=== PATIENT | female | born 1985 | race Caucasian/White ===

== ENCOUNTER → 2018-03-12 | Outpatient (REF) | payer OTHER, MEDICAID ==
[2018-03-12 18:59] LABS: BASO % 0.3 % (0.0-1.0); EOS % 0.5 % (0.0-3.0); IMMATURE GRANULOCYTE % 0.3 % (0-3.0); LYMPH # 1.4 10^3/uL (1.5-4.5); LYMPH % 35.8 % (24.0-44.0); MEAN CORPUSCULAR HEMOGLOBIN 31.6 pg (27.0-33.0); MEAN CORPUSCULAR HGB CONC 34.1 g/dl (32.0-36.5); MEAN CORPUSCULAR VOLUME 92.6 fl (80.0-96.0); MONO # 0.4 10^3/uL (0.0-0.8); MONO % 9.4 % (0.0-5.0); NEUTROPHILS # 2.1 10^3/uL (1.8-7.7); NEUTROPHILS % 53.7 % (36.0-66.0); PLATELET COUNT, AUTOMATED 245 10^3/uL (150-450); RED BLOOD COUNT 4.75 10^6/uL (4.00-5.40); WHITE BLOOD COUNT 3.8 10^3/uL (4.0-10.0)
[2018-03-12 19:21] LABS: ALBUMIN 3.8 GM/DL (3.2-5.2); ALBUMIN/GLOBULIN RATIO 1.09 (1.00-1.93); ALKALINE PHOSPHATASE 54 U/L (45-117); ALT/SGPT 25 U/L (12-78); ANION GAP 5 MEQ/L (8-16); AST/SGOT 14 U/L (7-37); BILIRUBIN,TOTAL 0.5 MG/DL (0.2-1.0); BLOOD UREA NITROGEN 11 MG/DL (7-18); CALCIUM LEVEL 8.1 MG/DL (8.5-10.1); CARBON DIOXIDE LEVEL 29 MEQ/L (21-32); CHLORIDE LEVEL 108 MEQ/L (98-107); CHOLESTEROL LEVEL 138 MG/DL (<200); CHOLESTEROL RISK RATIO 4.058 (<5); CREATININE FOR GFR 0.72 MG/DL (0.55-1.30); GLOMERULAR FILTRATION RATE > 60.0 (>60); GLUCOSE, FASTING 69 MG/DL (70-100); HDL CHOLESTEROL 34 MG/DL (>40); LDL CHOLESTEROL 83 MG/DL (<100); NON-HDL-C 104 MG/DL; POTASSIUM SERUM 3.7 MEQ/L (3.5-5.1); SODIUM LEVEL 142 MEQ/L (136-145); THYROID STIMULATING HORMONE 0.729 uIU/ML (0.358-3.740); TOTAL PROTEIN 7.3 GM/DL (6.4-8.2); TRIGLYCERIDES LEVEL 103 MG/DL (<150)
[2018-03-12 19:25] LABS: ESTIMATED AVERAGE GLUCOSE 91 MG/DL (60-110); HEMOGLOBIN A1c 4.8 %
[2018-03-12 19:32] LABS: TOTAL 25(OH) VITAMIN D 15.5 NG/ML (30.0-100.0)
== END ==
LOC: M LAB REF 17:50
DX: Z00.00 Encounter for general adult medical examination without abnormal findings (principal)

== ENCOUNTER → 2018-03-12 | Outpatient (REF) | payer OTHER, MEDICAID ==
[2018-03-14 15:28] LABS: HPV HYBRID CAPTURE II Negative (Negative)
== END ==
LOC: M LAB REF 13:12
DX: Z12.4 Encounter for screening for malignant neoplasm of cervix (principal)

== ENCOUNTER → 2019-06-11 | Outpatient (REF) | payer BC ==
[~2019-06-11] MED LIST: CEFD300CAP PO; ESCI10TA2; LEXA1TAB2
[2019-06-11 13:11] LABS: APPEARANCE, URINE CLOUDY (CLEAR); BACTERIA, URINE AUTO 3+ (NEGATIVE); BILIRUBIN, URINE AUTO NEGATIVE (NEGATIVE); BLOOD, URINE BLOOD 1+ (NEGATIVE); COLOR, URINE YELLOW (YELLOW); GLUCOSE, URINE (UA) AUTO NEGATIVE (NEGATIVE); KETONE, URINE AUTO NEGATIVE (NEGATIVE); LEUKOCYTE ESTERASE, URINE AUTO NEGATIVE (NEGATIVE); MUCUS, URINE SMALL (NEGATIVE); NITRITE, URINE AUTO POSITIVE (NEGATIVE); PROTEIN, URINE AUTO NEGATIVE (NEGATIVE); RBC, URINE AUTO 1 /HPF (0-3); SPECIFIC GRAVITY URINE AUTO 1.015 (1.002-1.035); SQUAMOUS EPITHELIAL CELL UR AU 1 /HPF (0-6); UROBILINOGEN, URINE AUTO 0.2 mg/dL (0.0-2.0); WBC, URINE AUTO 3 /HPF (0-3)
[2019-06-11 13:36] LABS: BASO % 0.1 % (0.0-1.0); EOS % 0.6 % (0.0-3.0); HEMATOCRIT 43.5 % (36.0-47.0); HEMOGLOBIN 14.5 g/dl (12.0-15.5); LYMPH # 2.2 10^3/uL (1.5-5.0); LYMPH % 31.3 % (24.0-44.0); MEAN CORPUSCULAR HEMOGLOBIN 30.9 pg (27.0-33.0); MEAN CORPUSCULAR HGB CONC 33.3 g/dl (32.0-36.5); MEAN CORPUSCULAR VOLUME 92.6 fl (80.0-96.0); MONO # 0.4 10^3/uL (0.0-0.8); MONO % 5.9 % (0.0-5.0); NEUTROPHILS # 4.3 10^3/uL (1.5-8.5); NEUTROPHILS % 61.4 % (36.0-66.0); PLATELET COUNT, AUTOMATED 241 10^3/uL (150-450); WHITE BLOOD COUNT 6.9 10^3/uL (4.0-10.0)
[2019-06-11 13:51] LABS: HEMOGLOBIN A1c 4.5 %
[2019-06-11 13:55] LABS: ALT/SGPT 21 U/L (12-78); BILIRUBIN,TOTAL 0.8 MG/DL (0.2-1.0); BLOOD UREA NITROGEN 10 MG/DL (7-18); CALCIUM LEVEL 9.4 MG/DL (8.5-10.1); CARBON DIOXIDE LEVEL 28 MEQ/L (21-32); CHLORIDE LEVEL 109 MEQ/L (98-107); CHOLESTEROL LEVEL 174 MG/DL (<200); CREATININE FOR GFR 0.76 MG/DL (0.55-1.30); GLOMERULAR FILTRATION RATE > 60.0 (>60); GLUCOSE, FASTING 81 MG/DL (70-100); HDL CHOLESTEROL 40 MG/DL (>40); LDL CHOLESTEROL 98 MG/DL (<100); NON-HDL-C 134 MG/DL; SODIUM LEVEL 142 MEQ/L (136-145); TOTAL 25(OH) VITAMIN D 14.9 NG/ML (30.0-100.0); TOTAL PROTEIN 7.3 GM/DL (6.4-8.2); TRIGLYCERIDES LEVEL 182 MG/DL (<150)
== END ==
LOC: M LAB REF 12:37
PROVIDERS: ATTEND Nurse Practitioner Adult Health
DX: Z13.9 Encounter for screening, unspecified (principal)

== ENCOUNTER 2019-06-15 07:07 | Emergency (ER) | payer BC ==
[~2019-06-15] VITALS: Ht 162.6 cm; Wt 78.9 kg
[~2019-06-15 07:07] MED LIST changes: -CEFD300CAP PO; -ESCI10TA2
[2019-06-15] MEDS ORDERED: ESCI10TA2 (07:15)
[2019-06-15] MEDS ORDERED: NS 1,000 ML IV ONE (07:45)
[2019-06-15] MEDS ORDERED: MORPHINE 4 MG/ML 1ML VIAL/SYRINGE (J2270) IV ONE (07:45)
[2019-06-15] MEDS ORDERED: ONDANSETRON 4MG/2ML VIAL (J2405) IV ONE (08:00)
[2019-06-15 08:04] LABS: BASO % 0.5 % (0.0-1.0); EOS % 0.5 % (0.0-3.0); HEMATOCRIT 42.4 % (36.0-47.0); HEMOGLOBIN 14.1 g/dl (12.0-15.5); LYMPH # 1.5 10^3/uL (1.5-5.0); LYMPH % 24.8 % (24.0-44.0); MEAN CORPUSCULAR HEMOGLOBIN 30.8 pg (27.0-33.0); MEAN CORPUSCULAR HGB CONC 33.3 g/dl (32.0-36.5); MEAN CORPUSCULAR VOLUME 92.6 fl (80.0-96.0); MONO # 0.4 10^3/uL (0.0-0.8); MONO % 6.9 % (0.0-5.0); NEUTROPHILS # 4.2 10^3/uL (1.5-8.5); NEUTROPHILS % 66.8 % (36.0-66.0); PLATELET COUNT, AUTOMATED 198 10^3/uL (150-450); RED BLOOD COUNT 4.58 10^6/uL (4.00-5.40); WHITE BLOOD COUNT 6.2 10^3/uL (4.0-10.0)
[2019-06-15 08:28] LABS: BLOOD UREA NITROGEN 13 MG/DL (7-18); CALCIUM LEVEL 8.9 MG/DL (8.5-10.1); CARBON DIOXIDE LEVEL 26 MEQ/L (21-32); CHLORIDE LEVEL 107 MEQ/L (98-107); GLOMERULAR FILTRATION RATE > 60.0 (>60); GLUCOSE, FASTING 97 MG/DL (70-100); POTASSIUM SERUM 3.8 MEQ/L (3.5-5.1); SODIUM LEVEL 140 MEQ/L (136-145)
--- NOTE | 2019-06-15 08:36 | REP ---
CT abdomen and pelvis without IV or oral contrast: History: Left flank pain. Comparison study: December 30, 2011. Findings: Preliminary digital director cost radiograph shows tubal ligation clamps, both of which are in the left mid abdomen. Bowel gas pattern is normal. Lung bases are clear on axial CT images. There is evidence of mild diffuse fatty infiltration of the liver. The liver size is borderline with midclavicular span of 17.7 cm. The spleen is also at the upper limit of normal measuring 13.0 cm in greatest dimension. No focal hepatic or splenic lesion is seen. Normal adrenal glands are seen bilaterally. No abnormality is noted in the gallbladder or pancreas. No retroperitoneal mass or adenopathy is seen. Normal appendix is seen. There is a 3.5 cm cystic area in the right ovary consistent with ovarian follicle. There is intrarenal nephrolithiasis in the right kidney with multiple small calcific opacities measuring up to 3 mm. No hydronephrosis is seen on either side. There are tiny intrarenal calculi on the left as well. No ureteral stone is seen. There are phleboliths in the pelvis bilaterally. No bladder calculus is seen. The urinary bladder is largely empty at the time of scanning. No uterine or left ovarian abnormality. Impression: There is a 3.5 cm cystic area in the right ovary. There is some fatty infiltration of the liver. Borderline liver spleen size. Bilateral intrarenal nephrolithiasis with multiple small calculi. No hydronephrosis or ureteral stone. Normal appendix. Electronically Signed by Albino Salguero MD 06/15/2019 10:35 A
[2019-06-15] MEDS ORDERED: cefTRIAXone SOD 1 GM in D5W MINI-BAG PLUS 50 ML IV ONE (08:45)
[2019-06-15 09:37] VITALS: BP 123/75
[2019-06-15] MEDS ORDERED: CEFD300CAP PO (09:42)
== END 2019-06-15 09:53 | disposition home or self-care (01) ==
LOC: M ED 07:07
DX: N10 Acute pyelonephritis (principal); N20.0 Calculus of kidney; N83.201 Unspecified ovarian cyst, right side; Z88.7 Allergy status to serum and vaccine; Z88.8 Allergy status to other drugs, medicaments and biological substances
CPT/HCPCS: 74176; 80048; 81001; 85025; 87088; 87186; 96361; 96365; 96375; 99284; J0696; J2270; J2405

== ENCOUNTER 2019-06-21 07:06 | Emergency (ER) | payer BC ==
[~2019-06-21] VITALS: Ht 162.6 cm; Wt 78.0 kg
[~2019-06-21 07:06] MED LIST changes: +CEFD300CAP PO; +ESCI10TA2
[2019-06-21] MEDS ORDERED: IBUP80TA (07:12)
[2019-06-21] MEDS ORDERED: TRAM50TA2 (07:12)
[2019-06-21] MEDS ORDERED: NITR100C2 (07:12)
[2019-06-21] MEDS ORDERED: CEFD1CAP8 (07:12)
[2019-06-21] MEDS ORDERED: MORPHINE 2 MG/ML 1ML VIAL (J2270) IV ONE (07:45)
[2019-06-21 07:58] LABS: BASO % 0.4 % (0.0-1.0); EOS # 0.1 10^3/uL (0.0-0.5); EOS % 0.6 % (0.0-3.0); HEMATOCRIT 45.2 % (36.0-47.0); HEMOGLOBIN 15.5 g/dl (12.0-15.5); LYMPH # 2.3 10^3/uL (1.5-5.0); LYMPH % 29.5 % (24.0-44.0); MEAN CORPUSCULAR HEMOGLOBIN 31.4 pg (27.0-33.0); MEAN CORPUSCULAR HGB CONC 34.3 g/dl (32.0-36.5); MEAN CORPUSCULAR VOLUME 91.5 fl (80.0-96.0); MONO # 0.6 10^3/uL (0.0-0.8); NEUTROPHILS # 4.9 10^3/uL (1.5-8.5); NEUTROPHILS % 62.1 % (36.0-66.0); PLATELET COUNT, AUTOMATED 237 10^3/uL (150-450); RED BLOOD COUNT 4.94 10^6/uL (4.00-5.40); WHITE BLOOD COUNT 7.8 10^3/uL (4.0-10.0)
[2019-06-21 08:00] LABS: APPEARANCE, URINE HAZY (CLEAR); BACTERIA, URINE AUTO NEGATIVE (NEGATIVE); BILIRUBIN, URINE AUTO NEGATIVE (NEGATIVE); BLOOD, URINE BLOOD 1+ (NEGATIVE); COLOR, URINE YELLOW (YELLOW); GLUCOSE, URINE (UA) AUTO NEGATIVE (NEGATIVE); KETONE, URINE AUTO NEGATIVE (NEGATIVE); LEUKOCYTE ESTERASE, URINE AUTO NEGATIVE (NEGATIVE); MUCUS, URINE SMALL (NEGATIVE); NITRITE, URINE AUTO NEGATIVE (NEGATIVE); PROTEIN, URINE AUTO NEGATIVE (NEGATIVE); RBC, URINE AUTO 2 /HPF (0-3); SPECIFIC GRAVITY URINE AUTO 1.016 (1.002-1.035); SQUAMOUS EPITHELIAL CELL UR AU 4 /HPF (0-6); UROBILINOGEN, URINE AUTO 0.2 mg/dL (0.0-2.0); WBC, URINE AUTO 0 /HPF (0-3)
[2019-06-21 08:18] LABS: ALBUMIN 4.3 GM/DL (3.2-5.2); BILIRUBIN,DIRECT 0.2 MG/DL (0.0-0.2); BILIRUBIN,TOTAL 0.9 MG/DL (0.2-1.0); TOTAL PROTEIN 7.6 GM/DL (6.4-8.2)
[2019-06-21] MEDS ORDERED: ONDANSETRON 4MG/2ML VIAL (J2405) IV ONE (09:00)
[2019-06-21 10:31] VITALS: BP 107/61
--- NOTE | 2019-06-21 13:26 | REP ---
CT ABDOMEN AND PELVIS WITHOUT CONTRAST: HISTORY: Flank pain. Nephrolithiasis. Comparison CT study, June 15, 2019. CT FINDINGS: Digital preliminary brick kiln burner radiograph demonstrates a normal bowel gas pattern. Tubal ligation clamps are visible in the left mid abdomen as on the earlier brick kiln burner view. The lung bases are clear. The liver and the spleen remain normal in size, homogeneous in texture. Normal adrenal glands. The gallbladder and pancreas remain unremarkable. There is no evidence of hydronephrosis. There are tiny calcific densities in the left kidney, and there are several slightly larger calcifications in the right kidney consistent with bilateral intrarenal nephrolithiasis. The largest right renal calculus is in the lower pole collecting system 3 mm in diameter. These are unchanged from the comparison CT study of June 15, 2019. No ureteral stone is seen on either side. No bladder calculus is observed. There is a stable small cyst in the right ovary, 3.5 cm in greatest diameter. This is unchanged. No uterine or left adnexal abnormality is seen. Urinary bladder is unremarkable. Normal appendix is visible as before. No abdominal wall defect is seen. IMPRESSION: Stable 3.5 cm cyst, right ovary. Normal appendix. Bilateral intrarenal calcifications consistent with nephrolithiasis. Unchanged from the recent prior study. No hydronephrosis or ureteral stones seen. No acute abnormality. Electronically Signed by Albino Salguero MD 06/21/2019 02:49 P
== END 2019-06-21 11:23 | disposition home or self-care (01) ==
LOC: M ED 07:06
DX: R10.9 Unspecified abdominal pain (principal); N20.0 Calculus of kidney; Z88.7 Allergy status to serum and vaccine; Z88.6 Allergy status to analgesic agent; Z79.891 Long term (current) use of opiate analgesic; Z79.899 Other long term (current) drug therapy
CPT/HCPCS: 74176; 80047; 80076; 81001; 82150; 83690; 84702; 85025; 96374; 96375; 99284; J2270; J2405

== ENCOUNTER 2019-06-30 10:08 | Emergency (ER) | payer BC ==
[~2019-06-30] VITALS: Ht 162.6 cm; Wt 79.0 kg
[~2019-06-30 10:08] MED LIST changes: -ONDA4TAB6 PO
[2019-06-30] MEDS ORDERED: NS 1,000 ML IV ONE (10:45)
[2019-06-30] MEDS ORDERED: KETOROLAC 30 MG/ML VIAL (J1885) IV ONE (10:45)
[2019-06-30] MEDS ORDERED: ONDANSETRON 4MG/2ML VIAL (J2405) IV ONE (10:45)
[2019-06-30 10:52] LABS: BASO % 0.3 % (0.0-1.0); EOS % 0.5 % (0.0-3.0); HEMATOCRIT 47.1 % (36.0-47.0); HEMOGLOBIN 15.6 g/dl (12.0-15.5); LYMPH # 2.1 10^3/uL (1.5-5.0); LYMPH % 33.7 % (24.0-44.0); MEAN CORPUSCULAR HEMOGLOBIN 31.1 pg (27.0-33.0); MEAN CORPUSCULAR HGB CONC 33.1 g/dl (32.0-36.5); MONO # 0.4 10^3/uL (0.0-0.8); NEUTROPHILS # 3.7 10^3/uL (1.5-8.5); PLATELET COUNT, AUTOMATED 259 10^3/uL (150-450); RED BLOOD COUNT 5.01 10^6/uL (4.00-5.40); WHITE BLOOD COUNT 6.3 10^3/uL (4.0-10.0)
[2019-06-30 11:23] LABS: BLOOD UREA NITROGEN 11 MG/DL (7-18); CALCIUM LEVEL 9.1 MG/DL (8.5-10.1); CARBON DIOXIDE LEVEL 29 MEQ/L (21-32); CHLORIDE LEVEL 107 MEQ/L (98-107); CREATININE FOR GFR 0.83 MG/DL (0.55-1.30); GLOMERULAR FILTRATION RATE > 60.0 (>60); GLUCOSE, FASTING 84 MG/DL (70-100); POTASSIUM SERUM 3.7 MEQ/L (3.5-5.1); SODIUM LEVEL 140 MEQ/L (136-145)
--- NOTE | 2019-06-30 11:28 | REP ---
Supine abdomen two views: Comparison is the abdomen/pelvis CT dated 06/21/2019. The bilateral renal calculi identified on the recent CT are not visible on plain films. There are faintly visible pelvic calcifications bilaterally. On the comparison CT these are likely phleboliths. The bowel gas pattern is normal. The skeletal structures are unremarkable. Impression: The patient's known renal calculi are not visible on plain films. There are pelvic calcifications, likely phleboliths. Electronically Signed by Ryan Bain MD 06/30/2019 11:20 A
--- NOTE | 2019-06-30 11:42 | REP ---
Renal ultrasound for left flank pain and renal colic: Comparison is the abdomen/pelvis CT dated 06/21/2019. On the comparison CT, small bilateral renal calculi were identified. On the ultrasound study today the right kidney measures 11.3 x 5.7 x 4.0 cm. The left kidney measures 11.3 x 6.2 x 5.2 cm. The kidneys are normal size. Renal cortical echogenicity is normal bilaterally. There is no hydronephrosis on the right or the left. In the right kidney an 8 mm mid pole echogenic focus is identified, compatible with a non obstructive renal calculus. The left kidney. A 7 mm upper pole echogenic focus is identified, compatible with a nonobstructive calculus. No solid or cystic renal masses are identified on the right or the left. Bladder: The bladder is almost completely empty and cannot be further evaluated. Impression: There is no hydronephrosis on the right on the left. By ultrasound, a single nonobstructive calculus is identified in each kidney. There are no solid or cystic renal masses. Electronically Signed by Ryan Bain MD 06/30/2019 11:34 A
[2019-06-30] MEDS ORDERED: cefTRIAXone SOD 1 GM in D5W MINI-BAG PLUS 50 ML IV ONE (12:15)
[2019-06-30 13:30] VITALS: BP 115/76
[2019-06-30] MEDS ORDERED: ONDA4TAB6 PO (13:51)
== END 2019-06-30 13:30 | disposition home or self-care (01) ==
LOC: M ED 10:08
DX: R10.9 Unspecified abdominal pain (principal); R11.2 Nausea with vomiting, unspecified; N20.0 Calculus of kidney; Z88.6 Allergy status to analgesic agent; Z88.7 Allergy status to serum and vaccine; Z79.899 Other long term (current) drug therapy
CPT/HCPCS: 74018; 76775; 80048; 81001; 85025; 87086; 96361; 96365; 96375; 99284; J0696; J1885; J2405

== ENCOUNTER → 2019-06-30 | Outpatient (REF) | payer BC ==
[~2019-06-30] MED LIST changes: +CEFD1CAP8; +IBUP80TA; +NITR100C2; +ONDA4TAB6 PO; +TRAM50TA2
[2019-06-30 13:32] LABS: APPEARANCE, URINE CLOUDY (CLEAR); BACTERIA, URINE AUTO NEGATIVE (NEGATIVE); BILIRUBIN, URINE AUTO NEGATIVE (NEGATIVE); BLOOD, URINE BLOOD 1+ (NEGATIVE); CALCIUM OXALATE CRYSTALS MODERATE; COLOR, URINE YELLOW (YELLOW); GLUCOSE, URINE (UA) AUTO NEGATIVE (NEGATIVE); KETONE, URINE AUTO NEGATIVE (NEGATIVE); LEUKOCYTE ESTERASE, URINE AUTO NEGATIVE (NEGATIVE); MUCUS, URINE SMALL (NEGATIVE); NITRITE, URINE AUTO NEGATIVE (NEGATIVE); PROTEIN, URINE AUTO NEGATIVE (NEGATIVE); RBC, URINE AUTO 2 /HPF (0-3); SPECIFIC GRAVITY URINE AUTO 1.023 (1.002-1.035); SQUAMOUS EPITHELIAL CELL UR AU 12 /HPF (0-6); UROBILINOGEN, URINE AUTO 0.2 mg/dL (0.0-2.0); WBC, URINE AUTO 2 /HPF (0-3)
== END ==
LOC: M SMT 12:58
PROVIDERS: ATTEND Nurse Practitioner Family
DX: N39.0 Urinary tract infection, site not specified (principal)

== ENCOUNTER → 2019-07-20 | Outpatient (REF) | payer BC ==
[~2019-07-20] MED LIST changes: +ONDA4TAB6 PO
[2019-07-20 13:47] LABS: APPEARANCE, URINE HAZY (CLEAR); BACTERIA, URINE AUTO 2+ (NEGATIVE); BILIRUBIN, URINE AUTO NEGATIVE (NEGATIVE); BLOOD, URINE BLOOD 1+ (NEGATIVE); COLOR, URINE YELLOW (YELLOW); GLUCOSE, URINE (UA) AUTO NEGATIVE (NEGATIVE); KETONE, URINE AUTO NEGATIVE (NEGATIVE); LEUKOCYTE ESTERASE, URINE AUTO TRACE (NEGATIVE); MUCUS, URINE SMALL (NEGATIVE); NITRITE, URINE AUTO NEGATIVE (NEGATIVE); PROTEIN, URINE AUTO NEGATIVE (NEGATIVE); RBC, URINE AUTO 2 /HPF (0-3); SPECIFIC GRAVITY URINE AUTO 1.019 (1.002-1.035); SQUAMOUS EPITHELIAL CELL UR AU 2 /HPF (0-6); UROBILINOGEN, URINE AUTO 0.2 mg/dL (0.0-2.0); WBC, URINE AUTO 16 /HPF (0-3)
== END ==
LOC: M SMT 13:08
PROVIDERS: ATTEND Nurse Practitioner Family
DX: R31.0 Gross hematuria (principal)

== ENCOUNTER → 2019-07-30 | Outpatient (REF) | payer BC ==
[2019-07-30 19:35] LABS: BASO % 0.1 % (0.0-1.0); EOS # 0.1 10^3/uL (0.0-0.5); EOS % 0.9 % (0.0-3.0); HEMOGLOBIN 14.6 g/dl (12.0-15.5); LYMPH # 2.3 10^3/uL (1.5-5.0); MEAN CORPUSCULAR HEMOGLOBIN 31.6 pg (27.0-33.0); MEAN CORPUSCULAR HGB CONC 34.8 g/dl (32.0-36.5); MEAN CORPUSCULAR VOLUME 90.9 fl (80.0-96.0); MONO # 0.4 10^3/uL (0.0-0.8); MONO % 6.4 % (0.0-5.0); NEUTROPHILS # 3.9 10^3/uL (1.5-8.5); NEUTROPHILS % 58.3 % (36.0-66.0); PLATELET COUNT, AUTOMATED 258 10^3/uL (150-450); RED BLOOD COUNT 4.62 10^6/uL (4.00-5.40); WHITE BLOOD COUNT 6.7 10^3/uL (4.0-10.0)
[2019-07-30 20:05] LABS: ALBUMIN 4.4 GM/DL (3.2-5.2); ALT/SGPT 25 U/L (12-78); AMYLASE 58 U/L (25-115); BILIRUBIN,TOTAL 0.5 MG/DL (0.2-1.0); BLOOD UREA NITROGEN 14 MG/DL (7-18); CALCIUM LEVEL 9.3 MG/DL (8.5-10.1); CARBON DIOXIDE LEVEL 29 MEQ/L (21-32); CHLORIDE LEVEL 103 MEQ/L (98-107); CREATININE FOR GFR 0.87 MG/DL (0.55-1.30); GLOMERULAR FILTRATION RATE > 60.0 (>60); GLUCOSE, FASTING 87 MG/DL (70-100); LIPASE 126 U/L (73-393); POTASSIUM SERUM 4.2 MEQ/L (3.5-5.1); SODIUM LEVEL 136 MEQ/L (136-145); TOTAL PROTEIN 7.3 GM/DL (6.4-8.2)
== END ==
LOC: M LAB REF 19:01
PROVIDERS: ATTEND Nurse Practitioner Family
DX: Z13.9 Encounter for screening, unspecified (principal); R10.12 Left upper quadrant pain

== ENCOUNTER → 2019-08-10 | Outpatient (CLI) | payer BC ==
--- NOTE | 2019-08-10 10:09 | REP ---
ABDOMINAL ULTRASOUND: Real-time sonographic evaluation of the abdomen performed. The gallbladder demonstrates no evidence of intraluminal sludge or calculi, wall thickening or pericholecystic fluid. There is no intrahepatic or extrahepatic biliary dilatation, common bile duct measuring 2 mm. There is increased echotexture of the liver diffusely suggesting diffuse fibrofatty infiltration. No gross liver or pancreatic mass is seen. Spleen is upper limits of normal in size to slightly enlarged. It measures 12.9 x 11.7 x 4.6 cm. Splenic index is 694, normal splenic index is 480. Kidneys are normal in size and echotexture, right kidney measuring 11.1 x 5.3 x 4.1 cm and left kidney 11.2 x 5.0 x 5.0 cm. There is no mass or hydronephrosis. The abdominal aorta is normal in caliber with no aneurysm, maximum AP diameter proximally 2.1 cm and distally 1.4 cm. No ascites is seen. IMPRESSION: Diffuse fibrofatty infiltrate of the liver. Mild splenomegaly. Electronically Signed by Ryan Bernstein MD 08/10/2019 07:50 P
== END ==
LOC: M RAD 08:25
PROVIDERS: ATTEND Nurse Practitioner Adult Health
DX: K76.0 Fatty (change of) liver, not elsewhere classified (principal); R16.1 Splenomegaly, not elsewhere classified

== ENCOUNTER → 2019-08-18 | Outpatient (REF) | payer BC ==
[2019-08-18 19:36] LABS: BASO % 0.3 % (0.0-1.0); EOS # 0.1 10^3/uL (0.0-0.5); EOS % 0.8 % (0.0-3.0); HEMATOCRIT 44.3 % (36.0-47.0); HEMOGLOBIN 15.2 g/dl (12.0-15.5); LYMPH # 2.4 10^3/uL (1.5-5.0); LYMPH % 33.2 % (24.0-44.0); MEAN CORPUSCULAR HEMOGLOBIN 31.8 pg (27.0-33.0); MEAN CORPUSCULAR HGB CONC 34.3 g/dl (32.0-36.5); MEAN CORPUSCULAR VOLUME 92.7 fl (80.0-96.0); MONO # 0.5 10^3/uL (0.0-0.8); MONO % 6.5 % (0.0-5.0); NEUTROPHILS # 4.2 10^3/uL (1.5-8.5); NEUTROPHILS % 58.9 % (36.0-66.0); PLATELET COUNT, AUTOMATED 230 10^3/uL (150-450); RED BLOOD COUNT 4.78 10^6/uL (4.00-5.40); WHITE BLOOD COUNT 7.1 10^3/uL (4.0-10.0)
[2019-08-18 19:36] LABS: APPEARANCE, URINE CLEAR (CLEAR); BACTERIA, URINE AUTO NEGATIVE (NEGATIVE); BILIRUBIN, URINE AUTO NEGATIVE (NEGATIVE); BLOOD, URINE BLOOD NEGATIVE (NEGATIVE); COLOR, URINE YELLOW (YELLOW); GLUCOSE, URINE (UA) AUTO NEGATIVE (NEGATIVE); KETONE, URINE AUTO NEGATIVE (NEGATIVE); LEUKOCYTE ESTERASE, URINE AUTO NEGATIVE (NEGATIVE); MUCUS, URINE SMALL (NEGATIVE); NITRITE, URINE AUTO NEGATIVE (NEGATIVE); PROTEIN, URINE AUTO NEGATIVE (NEGATIVE); RBC, URINE AUTO 1 /HPF (0-3); SPECIFIC GRAVITY URINE AUTO 1.015 (1.002-1.035); SQUAMOUS EPITHELIAL CELL UR AU 2 /HPF (0-6); UROBILINOGEN, URINE AUTO 0.2 mg/dL (0.0-2.0); WBC, URINE AUTO 1 /HPF (0-3)
[2019-08-18 19:50] LABS: ALT/SGPT 40 U/L (12-78); BILIRUBIN,TOTAL 0.8 MG/DL (0.2-1.0); BLOOD UREA NITROGEN 8 MG/DL (7-18); CALCIUM LEVEL 9.1 MG/DL (8.5-10.1); CARBON DIOXIDE LEVEL 30 MEQ/L (21-32); CHLORIDE LEVEL 106 MEQ/L (98-107); CREATININE FOR GFR 0.72 MG/DL (0.55-1.30); GLOMERULAR FILTRATION RATE > 60.0 (>60); GLUCOSE, FASTING 93 MG/DL (70-100); POTASSIUM SERUM 4.4 MEQ/L (3.5-5.1); SODIUM LEVEL 139 MEQ/L (136-145); TOTAL PROTEIN 7.3 GM/DL (6.4-8.2)
== END ==
LOC: M LAB REF 19:07
PROVIDERS: ATTEND Nurse Practitioner Family
DX: R10.12 Left upper quadrant pain (principal); R10.32 Left lower quadrant pain; R30.0 Dysuria

== ENCOUNTER → 2019-08-25 | Outpatient (CLI) | payer BC ==
--- NOTE | 2019-08-25 18:28 | REP ---
Clinical: Left lower quadrant pain with history of endometrial ablation. Technique: Transabdominal pelvic ultrasound followed by transvaginal examination for better evaluation of the endometrium and adnexa with color Doppler evaluation of the ovaries. Comparison: 01/19/2013. Findings: Bladder is normal and measures 8.1 x 7.7 x 7.6 cm. Anteverted uterus measures 10.6 x 3.6 x 4.3 cm and includes 11 mm hypoechoic complex right posterior submucosal lesion which may represent small myometrial cyst or fibroid. Endometrial complex measures 5.9 mm thickness. Subcentimeter Nabothian cyst noted. Bilateral ovaries are normal in vascularity without torsion. Left ovary measures 3.0 x 2.3 x 2.9 cm (RI 0.67). Right ovary measures 4.5 x 3.8 x 4.8 cm (RI 0.59) and includes 4.0 x 3.8 x 3.9 cm simple cyst. No pelvic fluid or adnexal mass lesion. Impression: 1. 11 mm hypoechoic lesion in the uterus as described above may represent submucosal fibroid or myometrial cyst. 2. 4.0 cm simple right ovarian cyst. Consider follow-up examination in 4-6 weeks to reevaluate the right ovary and uterine lesion. Electronically Signed by Sarthak Li MD 08/25/2019 06:20 P
== END ==
LOC: M RAD 12:45
PROVIDERS: ATTEND Nurse Practitioner Adult Health
DX: R10.32 Left lower quadrant pain (principal)

== ENCOUNTER → 2019-11-12 | Outpatient (CLI) | payer BC ==
[~2019-11-12] MED LIST changes: +CLAR10CA3 PO; -ESCI10TA2; +ESCI10TA2 PO; +IBUP-1022 PO; +OXYC1TAB23 PO; +TYLETAB14 PO
== END ==
LOC: M LABSMTC 09:43
PROVIDERS: ATTEND Anesthesiology
DX: Z01.818 Encounter for other preprocedural examination (principal); Z11.59 Encounter for screening for other viral diseases
CPT/HCPCS: C9803; U0003

== ENCOUNTER 2019-11-15 13:11 | Day surgery (SDC) | payer BC ==
[~2019-11-15] VITALS: Ht 162.6 cm; Wt 83.0 kg
[~2019-11-15 13:11] MED LIST changes: -IBUP-1022 PO; +LR 1,000 ML IV ONE; -OXYC1TAB23 PO
[2019-11-15 13:51] LABS: HEMATOCRIT 42.7 % (36.0-47.0); HEMOGLOBIN 14.6 g/dl (12.0-15.5); MEAN CORPUSCULAR HEMOGLOBIN 31.7 pg (27.0-33.0); MEAN CORPUSCULAR HGB CONC 34.2 g/dl (32.0-36.5); MEAN CORPUSCULAR VOLUME 92.8 fl (80.0-96.0); PLATELET COUNT, AUTOMATED 215 10^3/uL (150-450); WHITE BLOOD COUNT 7.7 10^3/uL (4.0-10.0)
[2019-11-15] MEDS ORDERED: ONDANSETRON 4MG/2ML VIAL As Ordered ONE ×2 (14:18→16:47)
[2019-11-15] MEDS ORDERED: ONDANSETRON 4MG/2ML VIAL IV ONE (14:30)
[2019-11-15] MEDS ORDERED: OXYC1TAB23 PO (15:15)
[2019-11-15] MEDS ORDERED: IBUP-1022 PO (15:17)
[2019-11-15] MEDS ORDERED: propofoL 200 MG/20 ML VIAL As Ordered ONE (16:47)
[2019-11-15] MEDS ORDERED: LIDOCAINE 2% 100MG/5ML SDV (FOR ANES.) As Ordered ONE (16:47)
[2019-11-15] MEDS ORDERED: MIDAZOLAM INJ 2MG/2ML VIAL (J2250 PER 1MG) As Ordered ONE (16:47)
[2019-11-15] MEDS ORDERED: ROCURONIUM BROMIDE 50 MG/5 ML VIAL As Ordered ONE (16:47)
[2019-11-15] MEDS ORDERED: SUGAMMADEX SODIUM 500 MG/5 ML VIAL (BRIDION) As Ordered ONE (16:47)
[2019-11-15] MEDS ORDERED: fentaNYL 100 MCG/2 ML INJECTION (J3010) As Ordered ONE (16:47)
[2019-11-15] MEDS ORDERED: HYDROmorphone HCL 2 MG/ML 1ML VIAL (J1170) As Ordered ONE (16:47)
[2019-11-15] MEDS ORDERED: dexameTHASONE 4 MG/ML 1ML VIAL (J1100 PER 1MG) As Ordered ONE (16:47)
[2019-11-15] MEDS ORDERED: BUPIVACAINE HCL 0.25% 30ML VIAL As Ordered ONE (18:18)
[2019-11-15] MEDS ORDERED: KETOROLAC 60 MG/2 ML VIAL As Ordered ONE (19:49)
[2019-11-15] MEDS ORDERED: ACETAMINOPHEN 1000MG 100ML IV BTL (OFIRMEV) (J0131 PER 10MG) As Ordered ONE (19:52)
[2019-11-15] MEDS ORDERED: ePHEDrine SULFATE 25 MG/5 ML(5MG/ML) SYRINGE As Ordered ONE (19:56)
[2019-11-15] MEDS ORDERED: LR 1,000 ML IV SCH ×2 (20:30)
[2019-11-15] MEDS ORDERED: HYDROMORPHONE HCL 0.5 MG/ 0.5 ML SYRINGE (J1170 PER 1) IV PRN (20:30)
[2019-11-15] MEDS ORDERED: ONDANSETRON 4MG/2ML VIAL IV PRN (20:30)
[2019-11-15] MEDS: fentaNYL 100 MCG/2 ML INJECTION (J3010) IV PRN ×4 (20:31→20:59)
[2019-11-15] MEDS: oxyCODONE 5MG TAB PO PRN ×2 (21:00→21:32)
[2019-11-15] MEDS ORDERED: oxyCODONE 5MG TAB As Ordered ONE (21:32)
[2019-11-15 22:05] VITALS: BP 116/67
--- NOTE | 2019-11-19 06:36 | RO ---
DATE OF PROCEDURE: 11/15/2019 PREPROCEDURE DIAGNOSIS: Right ovarian cyst adenoma. POSTPROCEDURE DIAGNOSIS: Left ovarian cyst adenoma. PROCEDURE: Laparoscopic left salpingo-oophorectomy. SURGEON: Dr. Fran Briceno POWER WASHER: ANESTHESIA: General endotracheal. ESTIMATED BLOOD LOSS: 10 mL. URINE OUTPUT: 200 mL. FINDINGS: 8 cm cyst adenoma involving the left ovary. Normal fallopian tubes. Normal right ovary. Normal uterus. Normal upper abdomen. DESCRIPTION OF PROCEDURE: The patient was taken to the operating room where general endotracheal anesthesia was induced. She was prepped and draped in sterile fashion in the dorsal lithotomy position. A Hadley catheter was placed. A sponge stick was placed in the vagina and used as a manipulator. A periumbilical incision made with a scalpel. A Veress needle was placed through this incision while tenting up on the skin of the abdomen. Intra-abdominal location of the Veress needle was assessed using a saline filled syringe. A pneumoperitoneum was created. The Veress needle was removed. A 10 mm trocar using Proximexort was inserted through this incision. Using a 5 mm scope, two 5 mm suprapubic ports were placed under direct visualization. The anatomy was surveyed. The ovarian mass was noted to be on the left ovary instead of the right ovary as expected. The IP ligament was grasped with the LigaSure, coagulated and incised. The broad ligament attachments to the ovary were coagulated and incised in a similar fashion. The fallopian tube was transected near its origin. The utero-ovarian ligament was then transected using the LigaSure. The specimen was freed. The specimen was elevated with the grasping instrument and placed in an Endo Catch bag. This was withdrawn through the umbilicus. The umbilical incision was slightly extended as was the fascia. The specimen was drained externally. None of the fluid drained into the abdomen. The specimen was then removed through the umbilical incision. The fascia was grasped and closed with two interrupted sutures of #0 Vicryl. The skin was closed with #4-0 Monocryl subcuticular sutures. Sponge, instrument and needle counts were correct. All instruments were removed.
== END 2019-11-15 22:28 | disposition home or self-care (01) ==
LOC: M SDC 13:11
PROVIDERS: ATTEND Specialist
DX: N83.02 Follicular cyst of left ovary (principal); Z92.84 Personal history of unintended awareness under general anesthesia; K76.0 Fatty (change of) liver, not elsewhere classified; F41.9 Anxiety disorder, unspecified; F32.9 Major depressive disorder, single episode, unspecified; N20.0 Calculus of kidney; Z87.891 Personal history of nicotine dependence; Z88.6 Allergy status to analgesic agent; Z88.7 Allergy status to serum and vaccine; Z79.899 Other long term (current) drug therapy; Z79.891 Long term (current) use of opiate analgesic
CPT/HCPCS: 36415; 58661; 85027; 88305; J0131; J1100; J1170; J1885; J2250; J2405; J3010

== ENCOUNTER → 2020-05-16 | Outpatient (CLI) | payer BC ==
[~2020-05-16] MED LIST changes: +IBUP-1022 PO; -LR 1,000 ML IV ONE; +OXYC1TAB23 PO
--- NOTE | 2020-05-16 10:38 | REP ---
INDICATION: N83.201 RIGHT OVARIAN CYST. COMPARISON: Pelvic ultrasound dated 08/25/2019.. TECHNIQUE: Transabdominal and endovaginal ultrasound assessment and Doppler ultrasound assessment. FINDINGS: On the comparison study there was a right ovarian simple cyst measuring up to 4.0 cm in diameter. On the comparison study and there was a right ovarian simple cyst that measured up to 4.0 cm. On the study today the uterus is anteverted and normal size measuring 9.2 x 3.3 x 4.2 cm. The endometrium is not thickened for patient age measuring 9 mm. On the comparison study there was a submucosal fibroid versus cyst. This is not identified on the study today. The patient reportedly had a left oophorectomy in November 2019. On the study today there is a right ovarian cystic complex measuring 3.6 x 2.2 x 2.4 cm. There is a thickened septation within this cystic complex versus a 2 cysts adjacent to 1 another There is vascular flow in the right ovary. The Doppler resistive index in the intraparenchymal arteries measures 0.55. A nabothian cyst is incidentally identified in the cervix. There is no free fluid in the pelvis.. IMPRESSION: Right ovarian cyst within thick septation versus 2 adjacent cysts as described. Left oophorectomy. No free fluid in the pelvis. In the submucosal fibroid/cyst identified on the previous study is not identified today. <Electronically signed by Ryan Bain > 05/16/20 1039
== END ==
LOC: M WHC 08:09
PROVIDERS: ATTEND Specialist
DX: N83.201 Unspecified ovarian cyst, right side (principal); Z90.79 Acquired absence of other genital organ(s)

== ENCOUNTER → 2020-06-16 | Outpatient (CLI) | payer BC ==
[~2020-06-16] MED LIST changes: +HYOS125TA; +OMEP-221
== END ==
LOC: M LABSMTC 11:39
PROVIDERS: ATTEND Anesthesiology
DX: Z01.812 Encounter for preprocedural laboratory examination (principal); Z20.822 Contact with and (suspected) exposure to COVID-19

== ENCOUNTER 2020-06-21 11:05 | Day surgery (SDC) | payer OTHER ==
[~2020-06-21] VITALS: Ht 162.6 cm; Wt 84.4 kg
[~2020-06-21 11:05] MED LIST changes: +ESCI10TA16 PO; -ESCI10TA2 PO; +LIDOCAINE 2% 100MG/5ML SDV (FOR ANES.) As Ordered ONE; +NS 1,000 ML IV ONE; +propofoL 200 MG/20 ML VIAL As Ordered ONE
--- OUTSIDE RECORDS SUMMARY | 2020-06-21 11:09 | CCD | Continuity of Care Document ---
Author Author Francesca GIBBS M.D Organization Unknown Address [address] [place] [address] Phone [phone] Care Team Providers Care Hose Sprayer Name Role Phone Judi Flores PA-C [facility] [phone] Problems Active Problems Provider Date Abdominal pain Rajat Gibbs M.D. Onset: 06/13/19 21 Social History Type Date Description Comments Sex Unknown ETOH Use Rarely consumes alcohol Tobacco Use Start: Unknown End: Unknown Patient is a former smoker QUIT 06/2012 Allergies, Adverse Reactions, Alerts Active Allergies Reaction Severity Comments Date Pertussis Vaccine 06/13/2020 Medications Active Medications SIG Qnty Indications Ordering Provide r Date Hyoscyamine Sulfate 0.125mg Tablets Dispers 1 tab by mouth three times a day before meals as needed 90tabs Rajat Gibbs M.D. 06/13/[address] 1 cap by mouth every morning 30caps Rajat Gibbs M.D. 021 Suprep Bowel Prep Kit 17.5-3.13-1.6GM/177ML Solution use as directed 354ml Rajat Gibbs M.D. 06/13/2020 Escitalopram Oxalate 10mg Tablets Take 1 & 1 2 (One & One Half) Tablets By Mouth Once Daily Unknown Immunizations Description No Information Available Vital Signs Date Vital Result Comment 06/13/2020 9:33am Height 64 inches 5'4" Weight 193.00 lb BP Systolic 125 mmHg BP Diastolic 72 mmHg Heart Rate 69 /min BMI (Body Mass Index) 33.1 kg/m2 Weight 87.545 kg Body Temperature 97.7 F Results Description No Information Available Procedures Description No Information Available Medical Devices Description No Information Available Encounters Type Date Location Provider Dx Diagnosis Office Visit 06/13/2020 9:15a Main Office Rajat Gibbs M.D. R 10.12 Left upper quadrant pain Assessments Date Code Description Provider 06/13/2020 R10.12 Left upper quadrant pain Rajat Gibbs M.D. Plan of Treatment Future Appointment(s):* 06/21/2020 1:15 pm - Rajat Gibbs M.D. at Main Office 06/13/2020 - Rajat Gibbs M.D.* R10.12 Left upper quadrant pain* Comments:* 35 yo wf who presents for a h/o luq abdominal pain. Pain is ongoing since 06/28. No weight loss. No c/o nausea/vomiting. Pt has daily bouts of pain. Pt has irregular bowel habits. No rectal bleeding. Abdominal ct scan was negative for any major issues.Plan:1. Egd + colonoscopy.2. Antispasmotics + heating pad.3. Avoid greasy foods. Functional Status Description No Information Available Mental Status Description No Information Available Referrals Description No Information Available
--- OUTSIDE RECORDS SUMMARY | 2020-06-21 11:09 | CCD | Continuity of Care Document ---
Author Author Francesca ROBERTO Organization Unknown Address [address] [place] [address] [place] [address] Phone [phone] Care Team Providers Care Emergency Nurse Name Role Phone [facility] Adult Primary Care [facility] [phone] [facility] [phone] Problems Description No Information Available Social History Type Date Description Comments Sex Unknown ETOH Use Denies alcohol use Tobacco Use Start: Unknown The patient has never vaped Tobacco Use Start: Unknown Patient has never smoked Smoking Status Reviewed: 04/07/20 Patient has never smoked Allergies, Adverse Reactions, Alerts Description No Information Available Medications Active Medications SIG Qnty Indications Ordering Provide r Date Amoxicillin/Clavulanate Potassium 875-125mg Tablets take one tablet by mouth twice a day x 10 days 20tabs J 06.18 Rubio Blakely JR., M.D. 04/07/2020 Immunizations Description No Information Available Vital Signs Date Vital Result Comment 04/07/2020 8:58am BP Systolic 117 mmHg BP Diastolic 78 mmHg Heart Rate 95 /min Respiratory Rate 16 /min O2 % BldC Oximetry 98 % Body Temperature 98.4 F Weight 190.00 lb Height 64 inches 5'4" BMI (Body Mass Index) 32.6 kg/m2 Pain Level 8 Results Description No Information Available Procedures Description No Information Available Medical Devices Description No Information Available Encounters Type Date Location Provider Dx Diagnosis Office Visit 04/07/2020 8:25a Main Office KENYA Bowman J01 .10 Acute frontal sinusitis, unspecified Z20.828 Contact w and exposure to ot h viral communicable diseases Assessments Date Code Description Provider 04/07/2020 J01.10 Acute frontal sinusitis, unspeci fied KENYA Bowman 04/07/2020 Z20.828 Contact with and (thorpe spected) exposure to other viral communicable diseases KENYA Bowman Plan of Treatment No Information Available Functional Status Description No Information Available Mental Status Description No Information Available Referrals Description No Information Available
--- OUTSIDE RECORDS SUMMARY | 2020-06-21 11:09 | CCD | Continuity of Care Document ---
Author Author Francesca CLARK M.D. Organization Unknown Address [address] [place] [address] Phone [phone] Care Team Providers Care Car Packer Name Role Phone Judi Flores PA-C [facility] [phone] [facility] Gastroenterology [facility] [phone] Problems Active Problems Provider Date Anxiety state Judi Flores PA-C Onset: 05/09/2020 Recurrent major depressive episodes Judi Flores PA-C Onse t: 05/09/2020 Social History Type Date Description Comments Sex Unknown ETOH Use Rarely consumes alcohol Tobacco Use Start: Unknown End: Unknown Patient is a former smoker quit 2012 Recreational Drug Use Denies Drug Use Allergies, Adverse Reactions, Alerts Active Allergies Reaction Severity Comments Date Pertussis Vaccines swelling 0 Medications Active Medications SIG Qnty Indications Ordering Provide r Date Lexapro 10mg Tablets 1 and a 1/2 tab by mouth every day Unknown Immunizations CPT Code Status Date Vaccine Lot # [id number] Given 05/09/2020 Influenza (>= 6 Months) P.F. Vaccine [id number] Vital Signs Date Vital Result Comment 05/16/2020 3:58pm BP Systolic 122 mmHg BP Diastolic 82 mmHg Heart Rate 82 /min Body Temperature 96.9 F Weight 190.88 lb Weight 86.581 kg Height 64 inches 5'4" BMI (Body Mass Index) 32.8 kg/m2 BSA (Body Surface Area) 1.92 m2 05/09/2020 3:20pm BP Systolic 112 mmHg BP Diastolic 80 mmHg Heart Rate 82 /min Body Temperature 97.9 F Respiratory Rate 16 /min O2 % BldC Oximetry 97 % Weight 188.38 lb Weight 85.447 kg Height 64 inches 5'4" BMI (Body Mass Index) 32.3 kg/m2 BSA (Body Surface Area) 1.91 m2 Results Description No Information Available Procedures Date Code Description Status 05/09/2020 65839 Admin Patient Focused Health Ris k Assessment Instrument Completed 05/09/2020 18697 Brief Emotional/Beha v Assessment W/ Scoring Doc Per Standard Inst Completed Medical Devices Description No Information Available Encounters Description No Information Available Assessments Date Code Description Provider 05/09/2020 Z00.01 Encounter for genera l adult medical examination with abnormal findings Judi Flores PA-C 05/09/2020 R10.9 Unspecified abdominal pain Judi Flores PA-C 05/09/2020 F41.9 Anxiety disorder, unspecified El twila Flores PA-C 05/09/2020 F33.9 Major depressive disorder, recur rent, unspecified Judi Flores PA-C 05/09/2020 N83.201 Unspecified ovarian cyst, right side Judi Flores PA-C 05/09/2020 Z23 Encounter for immunization Judi Flores PA-C Plan of Treatment Future Appointment(s):* 05/24/2020 2:15 pm - Roselia David NP at [facility] * 07/10/2020 3:20 pm - Judi Flores PA-C at [facility] Functional Status Description No Information Available Mental Status Description No Information Available Referrals Refer to Reason for Referral Status Appt Date [facility] Gastroenterology 35 year old female with nunu re left upper quadrant pain. This pain is debilitating for the patient. At the worst, pain is more than 10/10. She has gone to the ER for this. Patient is new to our clinic and we are obtaining prior records. Patient reports CT in the past showed mild splenomegaly and no other abnormalities. Please evaluate and treat. Thank you. [address] [place] [address] [phone]
--- OUTSIDE RECORDS SUMMARY | 2020-06-21 11:09 | CCD | Continuity of Care Document ---
Author Author Francesca [employer] Organization Unknown Address [address] [place] [address] Phone [phone] Care Team Providers Care Rehabilitation Therapy Aide Name Role Phone Judi Flores PA-C AUTM [phone] Rajat Gibbs MD AUTM Problems Active Problems Provider Date Anxiety state [...] Severity Comments Date Pertussis Vaccines swelling 0 NKFA 06/12/2020 [employer] 06/12/2020 Medications Active Medications SIG Qnty Indications Ordering Provide r Date Vitamin D3 Ultra Potency 1.25mg (91855 Ut) Tablets 1 tab by mouth every week 12tabs Elkin Weston MD 05/25/2020 Lexapro 10mg Tablets 1 and a 1/2 tab by mouth every day Unknown Immunizations CPT Code Status Date Vaccine Lot # [id number] Given 05/09/2020 Influenza (>= 6 Months) P.F. Vaccine [id number] Vital Signs Date Vital Result Comment 06/12/2020 9:21am BP Systolic 108 mmHg BP Diastolic 80 mmHg Heart Rate 80 /min Body Temperature 96.9 F Weight 193.00 lb Weight 87.545 kg Height 64 inches 5'4" BMI (Body Mass Index) 33.1 kg/m2 BSA (Body Surface Area) 1.93 m2 05/16/2020 3:58pm BP Systolic 122 mmHg BP Diastolic 82 mmHg Heart Rate 82 /min Body Temperature 96.9 F Weight 190.88 lb Weight 86.581 kg Height 64 inches 5'4" BMI (Body Mass Index) 32.8 kg/m2 BSA (Body Surface Area) 1.92 m2 Results Test Acquired Date Facility Test Result H/L Range Note Laboratory test finding 06/12/2020 [facility] <pending> CBC W/Automated Diff 05/23/2020 [facility] CBC W/Automated Diff (SEE NOTE) 1, 2 WBC 7.4 10^3/uL 4.2 - 11.0 RBC 4.75 10^6/uL 4.20 - 5.40 Hemoglobin 15.0 g/dL 12.0 - 16.0 Hematocrit 43.7 % 37.0 - 47.0 MCV 92.0 fL 81.0 - 101 MCH 31.6 pg 27.0 - 34.0 MCHC 34.3 g/dL 31.0 - 36.0 RDW 12.9 % 11.5 - 14.5 Platelets 235 10^3/uL 150 - 450 MPV 9.6 fL 7.4 - 10.4 Neut 60.9 % 37.0 - 80.0 Lymph 29.5 % 25.0 - 40.0 Tyler 7.3 % 3.0 - 8.0 Eos 1.2 % 0.0 - 7.0 Baso 0.3 % 0.0 - 2.5 %Ig 0.8 % High 0.0 - 0.0 %NRBC 0.0 % 0.0 - 0.0 #Neut 4.52 10^3/uL 2.00 - 6.90 #Lymph 2.19 10^3/uL 0.60 - 3.40 #Tyler 0.54 10^3/uL 0.00 - 0.90 #Eos 0.09 10^3/uL 0.00 - 0.70 #Baso 0.02 10^3/uL 0.00 - 0.20 #Ig 0.06 10^3/uL 0.00 - 0.10 #NRBC 0.00 10^3/uL 0.00 - 0.00 Manual Diff NOT INDICATED RBC Morph NOT INDICATED Comprehensive Metabolic Panel 05/23/2020 [facility] Comprehensive Metabo (SEE NOTE) 3 Sodium 140 mEq/L 134 - 153 Potassium 4.5 mEq/L 3.6 - 5.0 Chloride 102 mEq/L 98 - 107 Co2 29 mEq/L 22 - 30 Glucose 98 mg/dL 65 - 110 BUN 12 mg/dL 7 - 21 Creatinine 0.7 mg/dL 0.7 - 1.5 BUN/Creat 17 8 - 27 Total Protein 7.5 g/dL 6.3 - 8.2 Albumin 4.9 g/dL 3.9 - 5.0 Globulin 2.6 GM/DL 2.4 - 3.2 A/G Ratio 1.9 0.8 - 2.0 Calcium 9.6 mg/dL 8.4 - 10.2 Total Bili <0.7 mg/dL 0.2 - 1.3 Alkaline Phos 52 U/L 38 - 126 Sgot/Ast 20 U/L 5 - 40 SGPT/Alt 30 U/L 7 - 56 Anion Gap 9.0 mmol/L 8.0 - 16.0 Age 35 yrs Non-Aa GFR >60 mL/min Afr Amer GFR >60 mL/min 4 Laboratory test finding 05/23/2020 [facility] Hgba1c 4.5 % 4.4 - 6.1 5 TSH Highly Sensitive 1.72 uIU/mL 0.47 - 5.01 Cve Panel 05/23/2020 [facility] Cve Panel (SEE NOTE) 6 Cholesterol 183 mg/dL 131 - 200 Triglycerides 163 mg/dL High 35 - 160 HDL 44 mg/dL 29 - 86 LDL 122 mg/dL 65 - 175 Risk Factor 4.2 3.2 - 4.4 LDL/HDL 2.77 1.47 - 3.22 7 Laboratory test finding 05/23/2020 [facility] Vitamin D (25-Hydroxy) 20 NG/ML 8 Laboratory test finding 05/23/2020 [facility] Lipase Serum 42 U/L 13 - 60 Amylase 72 U/L 30 - 110 Laboratory test finding 05/17/2020 [facility] Cancer Antigen 125 7.0 U/mL 0.0-38.1 9 1 Is patient fasting? N 2 COMPLETE BLOOD COUNT 3 COMPREHENSIVE METABOLIC PANE L 4 Male GFR Interprentation 20-49 yrs >60 mL/min Normal 50-59 yrs >56 mL/min Normal 60-69 yrs >49 mL/min Normal 70-79yrs >42 mL/min Normal 80 and above >35 mL/min Normal Female GFR Interpretation 20-39 yrs >60 mL/min Normal 40-49 yrs >58 mL/min Normal 50-59 yrs >51 mL/min Normal 60-69 yrs >45 mL/min Normal 70-79 yrs >39 mL/min Normal 80 and above >32 mL/min Normal 5 {A1] {HB] 6 LIPID PANEL 7 CVE RISK CHOL/HDL LDL/HDL MEN: 1/2 AVERAGE 3.43 1.00 AVERAGE 4.97 3.55 2X AVERAGE 9.55 6.25 3X AVERAGE 23.99 7.99 WOMEN: 1/2 AVERAGE 3.27 1.47 AVERAGE 4.44 3.22 2X AVERAGE 7.05 5.03 3X AVERAGE 11.04 6.14 8 VITAMIN-D(25HYDROXY) Deficiency: <=20 ng/ml Insufficiency: 21-29 ng/ml Preferred level: => 30 ng/ml 9 [facility] Electroche miluminescence Immunoassay (ECLIA) Values obtained with different assay methods or kits cannot be used interchangeably. Results cannot be interpreted as absolute evidence of the presence or absence of malignant disease. Procedures Date Code Description Status 05/09/2020 48272 Admin Patient Focused Health Ris k Assessment Instrument Completed 05/09/2020 11572 Brief Emotional/Beha v Assessment W/ Scoring Doc Per Standard Inst Completed Medical Devices Description No Information Available Encounters Description No Information Available Assessments Date Code Description Provider 05/23/2020 Z00.01 Encounter for genera l adult medical examination with abnormal findings Judi Flores PA-C 05/23/2020 R10.9 Unspecified abdominal pain Judi Flores PA-C 05/16/2020 Z71.9 Counseling, unspecified Sandersbertha Tran M.D. 05/09/2020 Z00.01 Encounter for genera l adult [...] Flores PA-C Plan of Treatment Future Appointment(s):* 07/13/2020 9:15 am - Roselia David NP at [facility] * 07/10/2020 3:20 pm - Judi Flores PA-C at [facility] Functional Status Description No Information Available Mental Status Description No Information Available Referrals Refer to Dr Reason for Referral Status Appt Date Rajat Gibbs MD 35 year old female with s evere left upper quadrant pain. This pain is debilitating for the patient. At the worst, pain is more than 10/10. She has gone to the ER for this. Patient is new to our clinic and we are obtaining prior records. Patient reports CT in the past showed mild splenomegaly and no other abnormalities. Please evaluate and treat. Thank you. Patient Notified 06/29/[address] [place] [address] [phone]
--- OUTSIDE RECORDS SUMMARY | 2020-06-21 11:09 | CCD ---
Author Organization Unknown Address [address] [place] [address] Phone [phone] Care Team Providers Care Industrial Gas Servicer Helper Name Role Phone Fredy Narvaez Monroe Unavailable Unavailable Allergies Notes: PERTUSSIS VACCINE Medications Name Status Start Date Stop Date acetaminophen 300 mg-codeine 30 mg tablet Completed 04/03/2020 amoxicillin 875 mg-potassium clavulanate 125 mg tablet Completed 04/03/2020 benzonatate 100 mg capsule Completed 04/03 cefdinir 300 mg capsule Completed 04/03/20 20 escitalopram 10 mg tablet Completed 2019 hydrocodone 5 mg-acetaminophen 325 mg tablet Completed 04/03/2020 ibuprofen 800 mg tablet Completed 04/03/20 20 Lexapro 5 mg tablet Take 3 tablets every day by oral route. Active Not available nitrofurantoin monohydrate/macrocrystals 100 mg capsule Complete d 04/03/2020 omeprazole 20 mg capsule,delayed release Completed 04/03/2020 ondansetron 4 mg disintegrating tablet Completed 04/03/2020 ondansetron HCl 4 mg tablet Completed 03/10 oxycodone-acetaminophen 5 mg-325 mg tablet Completed 04/03/2020 promethazine 25 mg tablet Completed 2019 sulfamethoxazole 800 mg-trimethoprim 160 mg tablet Completed 04/03/2020 tamsulosin 0.4 mg capsule Completed 2019 tramadol 50 mg tablet Completed 04/03/2020 Problems Name Status Onset Date Source Obesity Active 01/28/2018 History Body Mass Index 30+ - Obesity Active 01/28/2018 Hi story Mixed Anxiety and Depressive Disorder Active 01/28/2018 History Bilateral Hearing Loss Active 01/28/2018 History Chest Pain Active 03/12/2018 History Screening for Malignant Neoplasm of Cervix Unknown 03/[address] Concept Unknown 03/12/2018 History Renal Colic Active 06/11/2019 History Clinical Finding Unknown 06/11/2019 History Kidney Stone Active 07/15/2019 History Patient Asked to Attend Unknown 08/31/2019 History Procedures Notes: uterine ablation, tubal ligation 2005, left ovary/fallopian tube removal-11/15/19 Results Lab Results None recorded. Past Encounters 04/03/2020 Abdominal Pain; Cyst of Right Ovary; Acute Sinusitis Fredy Narvaez, RPA-C: [address] [facility], [facility] [address], [place] [address], Ph. Social History Tobacco Smoking Status Never Smoker Vaccine List None recorded. Plan of Care Reminders Provider Appointments None recorded. Lab None recorded. Referral None recorded. Procedures None recorded. Surgeries None recorded. Imaging None recorded. Vitals 04/03/2020 08:50AM ESTABLISHED [id number] Height Weight BMI Blood Pressure 64 in 191 lbs 6 oz 32.8 kg/m2 123/86 mm[Hg] 12/16/2019 Height Weight Blood Pressure 64 in 188 lbs 2.08 oz 123/85 mm[Hg] 09/14/2019 Height Weight Blood Pressure 64 in 178 lbs 8 oz 126/82 mm[Hg] 08/31/2019 Height Weight Blood Pressure 64 in 180 lbs 2.08 oz 119/81 mm[Hg] 08/18/2019 Height Weight Blood Pressure 64 in 170 lbs 6.08 oz 118/78 mm[Hg] 08/04/2019 Height Weight Blood Pressure 64 in 170 lbs 121/79 mm[Hg] 07/30/2019 Height Weight Blood Pressure 64 in 171 lbs 8 oz 114/78 mm[Hg] 07/21/2019 Height Weight Blood Pressure 64 in 170 lbs 130/84 mm[Hg] 07/15/2019 Height Weight Blood Pressure 64 in 169 lbs 6.08 oz 116/76 mm[Hg] 07/05/2019 Height Weight Blood Pressure 64 in 171 lbs 6.4 oz 119/79 mm[Hg] 06/23/2019 Height Weight Blood Pressure 64 in 172 lbs 126/82 mm[Hg] 06/11/2019 Height Weight Blood Pressure 64 in 176 lbs 119/83 mm[Hg]
--- OUTSIDE RECORDS SUMMARY | 2020-06-21 11:09 | CCD | Continuity of Care Document ---
Author Author Francesca KING PA-C Organization Unknown Address [address] [place] [address] Phone [phone] Care Team Providers Care Gum Scoring Machine Operator Name Role Phone Judi King PA-C AUTM [phone] Rajat Gibbs MD AUTM Problems Active Problems Provider Date Anxiety state Judi King PA-C Onset: 05/09/2020 Recurrent major depressive episodes Judi King PA-C Onse t: 05/09/2020 Social History Type [...] CPT Code Status Date Vaccine Lot # [id number] Given 05/09/2020 Influenza (>= 6 Months) P.F. [...] BSA (Body Surface Area) 1.91 m2 Results Test Acquired Date Facility Test Result H/L Range Note Laboratory test finding 05/23/2020 [facility] Hgba1c <pending> TSH Highly Sensitive <pending> Laboratory test finding 05/23/2020 [facility] Vitamin D (25-Hydroxy) <pending> Laboratory test finding 05/23/2020 [facility] l Lipase Serum <pending> Amylase <pending> Laboratory test finding 05/17/2020 [facility] l Cancer Antigen 125 7.0 U/mL 0.0-38.1 1 1 [facility] Electroche miluminescence Immunoassay (ECLIA) Values obtained with different assay methods or kits cannot be used interchangeably. Results cannot be interpreted as absolute evidence of the presence or absence of malignant disease. Procedures Date Code Description Status 05/09/2020 16832 Admin Patient Focused Health Ris k Assessment Instrument Completed 05/09/2020 11928 Brief Emotional/Beha v Assessment W/ Scoring Doc Per Standard Inst Completed Medical Devices Description No Information Available Encounters Type Date Location Provider Dx Diagnosis Office Visit 05/16/2020 3:30p [facility] Wm Guerra M.D. Z71.9 Counseling, unspecified Assessments Date Code Description Provider 05/23/2020 Z00.01 Encounter for general adult medi simon exam w abnormal findings Judi King PA-C 05/23/2020 R10.9 Unspecified abdominal pain Judi King PA-C 05/16/2020 Z71.9 Counseling, unspecified Wm Tran M.D. 05/09/2020 Z00.01 Encounter for genera l adult medical examination with abnormal findings Judi King PA-C 05/09/2020 R10.9 Unspecified abdominal pain Judi King PA-C 05/09/2020 F41.9 Anxiety disorder, unspecified El twila King PA-C 05/09/2020 F33.9 Major depressive disorder, recur rent, unspecified Judi King PA-C 05/09/2020 N83.201 Unspecified ovarian cyst, right side Judi King PA-C 05/09/2020 Z23 Encounter for immunization Judi King PA-C Plan of Treatment Future Appointment(s):* 05/24/2020 2:15 pm - Ros[facility] NP [facility] * 07/10/2020 3:20 pm - Judi King PA-C at [facility] 05/16/2020 - Wm Tran M.D.* Z71.9 Counseling, unspecified * All * Comments:* Given the patient's family history of breast cancer and uterine cancer, we will do genetic studies to rule out BRCA1 and BRCA2. We will repeat the ultrasound in a month. We will get CA125 to rule out possible ovarian cancer. * Follow up:* Follow up in a week to review lab results. Functional Status Description No Information Available Mental [...] and treat. Thank you. Patient Notified 06/29/[address] [place] [address] [phone]
--- OUTSIDE RECORDS SUMMARY | 2020-06-21 11:09 | CCD ---
Author Author [facility] Organization [facility] Address Unknown Phone Unavailable Care Team Providers Care Silver Service Waiter Name Role Phone Fran Briceno Unavailable PROBLEMS Type Condition ICD9-CM Code LWC89-SG Code Onset Dates Condition S tatus SNOMED Code Notes Problem Kidney stone N20.0 Active 59858723 Problem Gross hematuria R31.0 Active 051664216 Problem Kidney stone 592.0 Active 98185965 Problem Personal history of urinary calculi V13.01 Acti ve 788181020 ALLERGIES Allergen (clinical drug ingredient) Drug/Non Drug Allergy do cumented on EMR Reaction Allergy Type Onset Date Status artificial cinnamon Anaphylaxis Non Drug Allergy Active wasp severe swelling Non Drug Allergy Act davey aspirin Aspirin([facility] Code:[address]-68) prophylaxis Drug Allergy Active PERTUSSIS Unknown Non Drug Allergy Active ENCOUNTERS from 1983 to 2020-04-25 Encounter Location Date Provider Diagnosis [facility] [address] [place] [id number] Mar, Fran Briceno Right ovarian cyst N 83.201 IMMUNIZATIONS No Information SOCIAL HISTORY Sex Assigned At : Social History Observation Description Sex Assigned At Unknown Judaism: Question Answer Notes Judaism No confucianism beliefs that would impact health care. Alcohol Screening: Question Answer Notes Did you have a drink containing alcohol in the past year? No Points 0 Interpretation Negative REASON FOR REFERRAL No Information VITAL SIGNS Weight 191.4 lbs Mar, Weight-kg 86.82 kg Mar, Height 5'3" in Mar, BMI 33.9 kg/m2 Mar, Blood pressure systolic 110 mm Hg Mar, Blood pressure diastolic 72 mm Hg Mar, MEDICATIONS Medication SIG (Take, Route, Frequency, Duration) Notes Start Da te End Date Status Ibuprofen 800 MG 1 tablet with food or milk a s needed Orally Three times a day for 20 days October, Not-Taking Claritin 10 MG 1 tablet Orally Once a day Not-Taking Lexapro 10 MG 1 tablet Orally Once a day for 30 day(s) Active Tylenol with Codeine #3 300-30 MG 1 tablet as needed O rally every 8 hrs for 15 days October, Not-Taking PROCEDURES No Information RESULTS No Results REASON FOR VISIT HAVING ISSUE FROM HER SURGERY MEDICAL (GENERAL) HISTORY Type Description Date Medical History kidney stones Medical History ovarian cyst Medical History UTI Medical History depression Surgical History tubal ligation 2004 Surgical History removal of kidney stones 2008 Surgical History ABLATION 2012 Surgical History Left ovarian cystectomy, D&C 04/2013 Surgical History Termination of D&C Surgical History left tube and ovary removed 11/15/2019 Hospitalization History surgery related Hospitalization History Childbirth Goals Section No Information Health Concerns No Information MEDICAL EQUIPMENT No Information MENTAL STATUS No Information FUNCTIONAL STATUS No Information ASSESSMENTS Encounter Date Diagnosis Assessment Notes Treatment Notes Treatm ent Clinical Notes Mar, Right ovarian cyst (ICD-10 - N83.201) PLAN OF TREATMENT Treatment Notes Test Name Order Date PLZ PELVIC NON OB COMPLETE 2020-04-25 Insurance Providers Payer Name Payer Address Payer Phone Insured Name Patient Relati onship to Insured Coverage Start Date Coverage End Date [employer] PPO [id number] [address] GAV[place] LIU self
--- OUTSIDE RECORDS SUMMARY | 2020-06-21 11:09 | CCD | Continuity of Care Document ---
Author Author Francesca GIBBS M.D Organization Unknown Address [address] [place] [address] Phone [phone] Care Team Providers Care Irrigation Foreman Name Role Phone Judi Flores PA-C AUTM [phone] Problems Active Problems Provider Date Abdominal pain [...] Information Available Assessments Date Code Description Provider 06/13/2020 R10.12 Left upper quadrant pain Rajat Gibbs M.D. Plan of Treatment Future Appointment(s):* 06/15/2020 6:00 am - [place] at Main Office * 06/21/2020 1:15 pm - Rajat Gibbs M.D. [...]
--- OUTSIDE RECORDS SUMMARY | 2020-06-21 11:09 | CCD | Continuity of Care Document ---
Author Author Francesca KING PA-C Organization Unknown Address [address] [place] [address] Phone [phone] Care Team Providers Care Radio Technician Name Role Phone Judi King PA-C AUTM [phone] Rajat Gibbs MD AUTM Problems Active Problems [...] r Date Vitamin D3 Ultra Potency 1.25mg (68461 Ut) Tablets 1 tab by mouth every week 12tabs Elkin Weston MD 05/25/2020 Lexapro 10mg Tablets 1 and a 1/2 tab by mouth every day Unknown Immunizations CPT Code Status Date Vaccine Lot # [id number] Given 05/09/2020 Influenza (>= 6 Months) P.F. [...] Date Facility Test Result H/L Range Note CBC W/[facility] W/Automated Diff (SEE NOTE) 1, 2 [...] 80.0 Lymph 29.5 % 25.0 - 40.0 Rabun 7.3 % 3.0 - 8.0 Eos 1.2 % 0.0 - 7.0 Baso 0.3 % 0.0 - 2.5 %Ig 0.8 % High 0.0 - 0.0 %NRBC 0.0 % 0.0 - 0.0 #Neut 4.52 10^3/uL 2.00 - 6.90 #Lymph 2.19 10^3/uL 0.60 - 3.40 #Rabun 0.54 10^3/uL 0.00 - 0.90 #Eos 0.09 10^3/uL 0.00 - 0.70 #Baso 0.02 10^3/uL 0.00 - 0.20 #Ig 0.06 10^3/uL 0.00 - 0.10 #NRBC 0.00 10^3/uL 0.00 - 0.00 Manual Diff NOT INDICATED RBC Morph NOT INDICATED Comprehensive Metabolic Panel 05/23/2020 [facility]spital Comprehensive Metabo (SEE NOTE) 3 Sodium [...] >60 mL/min 4 Laboratory test finding 05/23/2020 [facility] Hgba1c 4.5 % 4.4 - 6.1 5 TSH Highly Sensitive 1.72 uIU/mL 0.47 - 5.01 Cve Panel 05/23/2020 [facility] Cve Panel (SEE NOTE) 6 Cholesterol 183 mg/dL 131 - 200 Triglycerides 163 mg/dL High 35 - 160 HDL 44 mg/dL 29 - 86 LDL 122 mg/dL 65 - 175 Risk Factor 4.2 3.2 - 4.4 LDL/HDL 2.77 1.47 - 3.22 7 Laboratory test finding 05/23/2020 [facility] Vitamin D (25-Hydroxy) 20 NG/ML 8 Laboratory test finding 05/23/2020 [facility] Lipase Serum 42 U/L 13 - 60 Amylase 72 U/L 30 - 110 Laboratory test finding 05/17/2020 [facility] Cancer Antigen 125 7.0 U/mL 0.0-38.1 9 [...] disease. Procedures Date Code Description Status 05/09/2020 99249 Admin Patient Focused Health Ris k Assessment Instrument Completed 05/09/2020 11046 Brief Emotional/Beha v Assessment W/ Scoring Doc Per Standard Inst Completed Medical Devices Description No Information Available Encounters Description No Information Available Assessments Date Code Description Provider 05/23/2020 Z00.01 Encounter for genera l adult medical examination with abnormal findings Judi King PA-C 05/23/2020 R10.9 Unspecified abdominal pain Judi King PA-C 05/16/2020 Z71.9 Counseling, unspecified [place] Jossy Tran M.D. 05/09/2020 Z00.01 Encounter for genera [...] King PA-C Plan of Treatment Future Appointment(s):* 06/12/2020 9:15 am - Ros[facility] * 07/10/2020 3:20 pm - Judi King PA-C at [facility] 05/16/2020 - Wm Tran M.D.* Z71.9 Counseling, [...] and treat. Thank you. Patient Notified 06/29/[address] [place] [address] [phone]
--- OUTSIDE RECORDS SUMMARY | 2020-06-21 11:09 | CCD | Continuity of Care Document ---
Author Author Francesca ROBERTO Organization Unknown Address [address] [place] [address] [place] [address] Phone [phone] Care Team Providers Care Home Care Attendant Name Role Phone [facility] Adult Primary Care AUTM [phone] [facility] AUTM [phone] Problems Description No Information Available Social History [...]
--- OUTSIDE RECORDS SUMMARY | 2020-06-21 11:10 | CCD ---
Author Author [facility] Organization [facility] Address Unknown Phone Unavailable Care Team Providers Care Pile Driver Engineer Name Role Phone Concepción Gibbs MD Unavailable Unavailable Concepción Gibbs MD Unavailable Unavailable Concepción Gibbs MD Unavailable Unavailable Concepción Gibbs MD Unavailable Unavailable Concepción Gibbs MD Unavailable Unavailable Concepción Gibbs MD Unavailable Unavailable Concepción Gibbs MD Unavailable Unavailable Concepción Gibbs MD Unavailable Unavailable Concepción Gibbs MD Unavailable Unavailable Concepción Gibbs MD Unavailable Unavailable Concepción Gibbs MD Unavailable Unavailable Concepción Gibbs MD Unavailable Unavailable Concepción Gibbs MD Unavailable Unavailable Concepción Gibbs MD Unavailable Unavailable Concepción Gibbs MD Unavailable Unavailable Concepción Gibbs MD Unavailable Unavailable Concepción Gibbs MD Unavailable Unavailable Concepción Gibbs MD Unavailable Unavailable Concepción Gibbs MD Unavailable Unavailable Sai, S Rajat MD Unavailable Unavailable Sai S Rajat MD Unavailable Unavailable Sai, S Rajat MD Unavailable Unavailable Sai, S Rajat MD Unavailable Unavailable Sai, S Rajat MD Unavailable Unavailable Sai, S Rajat MD Unavailable Unavailable Sai, S Rajat MD Unavailable Unavailable Sai, S Rajat MD Unavailable Unavailable Sai, S Rajat MD Unavailable Unavailable Sai, S Rajat MD Unavailable Unavailable Sai, S Rajat MD Unavailable Unavailable Sai, S Rajat MD Unavailable Unavailable Sai, S Rajat MD Unavailable Unavailable Sai, S Rajat MD Unavailable Unavailable Sai, S Rajat MD Unavailable Unavailable Sai, S Rajat MD Unavailable Unavailable Sai, S Rajat MD Unavailable Unavailable Sai, S Rajat MD Unavailable Unavailable Sia, S Rajat MD Unavailable Unavailable Sai, S Rajat MD Unavailable Unavailable Sai, S Rajat MD Unavailable Unavailable Sai, S Rajat MD Unavailable Unavailable Sai, S Rajat MD Unavailable Unavailable Sai, S Rajat MD Unavailable Unavailable Sai S Rajat HIGGINS Unavailable Unavailable Sai S Rajat HIGGINS Unavailable Unavailable Sai S Rajat HIGGINS Unavailable Unavailable Sai S Rajat HIGGINS Unavailable Unavailable BETINA CLOUD MD Unavailable Unavailable BETINA CLOUD MD Unavailable Unavailable BETINA CLOUD MD Unavailable Unavailable BETINA CLOUD MD Unavailable Unavailable BETINA CLOUD MD Unavailable Unavailable BETINA CLOUD MD Unavailable Unavailable BETINA CLOUD MD Unavailable Unavailable BETINA CLOUD MD Unavailable Unavailable BETINA CLOUD MD Unavailable Unavailable BETINA CLOUD MD Unavailable Unavailable BETINA CLOUD MD Unavailable Unavailable BETINA CLOUD MD Unavailable Unavailable [facility], KGATES Unavailable Unavailable LETTIERE, A NITHIN PA Unavailable Unavailable LETTIERE, A NITHIN PA Unavailable Unavailable LETTIERE, A NITHIN PA Unavailable Unavailable LETTIERE, A NITHIN PA Unavailable Unavailable LETTIERE, A NITHIN PA Unavailable Unavailable LETTIERE, A NITHIN PA Unavailable Unavailable LETTIERE, A NITHIN PA Unavailable Unavailable LETTIERE, A NITHIN PA Unavailable Unavailable LETTIERE, A NITHIN PA Unavailable Unavailable LETTIERE, A NITHIN PA Unavailable Unavailable LETTIERE, A NITHIN PA Unavailable Unavailable LETTIERE, A NITHIN PA Unavailable Unavailable LETTIERE, A NITHIN PA Unavailable Unavailable LETTIERE, A NITHIN PA Unavailable Unavailable LETTIERE, A NITHIN PA Unavailable Unavailable LETTIERE, A NITHIN PA Unavailable Unavailable LETTIERE, A NITHIN PA Unavailable Unavailable LETTIERE, A NITHIN PA Unavailable Unavailable LETTIERE, A NITHIN PA Unavailable Unavailable LETTIERE, A NITHIN PA Unavailable Unavailable LETTIERE, A NITHIN PA Unavailable Unavailable LETTIERE, A NITHIN PA Unavailable Unavailable LETTIERE, A NITHIN PA Unavailable Unavailable LETTIERE, A NITHIN PA Unavailable Unavailable LETTIERE, A NITHIN PA Unavailable Unavailable LETTIERE, A NITHIN PA Unavailable Unavailable LETTIERE, A NITHIN PA Unavailable Unavailable LETTIERE, A NITHIN PA Unavailable Unavailable LETTIERE, A NITHIN PA Unavailable Unavailable [place], DAVID RADHA RPA-C Unavailable Unavailable [place], DAVID RADHA RPA-C Unavailable Unavailable [place], DAVID RADHA RPA-C Unavailable Unavailable [place], DAVID RADHA RPA-C Unavailable Unavailable [place], DAVID RADHA RPA-C Unavailable Unavailable [place], DAVID RADHA RPA-C Unavailable Unavailable [place], DAVID RADHA RPA-C Unavailable Unavailable [place], DAVID RADHA RPA-C Unavailable Unavailable [place], DAVID RADHA RPA-C Unavailable Unavailable [place], DAVID RADHA RPA-C Unavailable Unavailable [place], DAVID RADHA RPA-C Unavailable Unavailable [place], DAVID RADHA RPA-C Unavailable Unavailable [place], DAVID RADHA RPA-C Unavailable Unavailable [place], DAVID RADHA RPA-C Unavailable Unavailable [place], DAVID RADHA RPA-C Unavailable Unavailable [place], DAVID RADHA RPA-C Unavailable Unavailable [place], DAVID RADHA RPA-C Unavailable Unavailable [place], DAVID RADHA RPA-C Unavailable Unavailable [place], DAVID RADHA RPA-C Unavailable Unavailable [place], DAVID RADHA RPA-C Unavailable Unavailable [place], DAVID RADHA RPA-C Unavailable Unavailable [place], DAVID RADHA RPA-C Unavailable Unavailable [place], DAVID RADHA RPA-C Unavailable Unavailable [place], DAVID RADHA RPA-C Unavailable Unavailable [place], DAVID RADHA RPA-C Unavailable Unavailable [place], DAVID RADHA RPA-C Unavailable Unavailable [place], DAVID RADHA RPA-C Unavailable Unavailable [place], DAVID RADHA RPA-C Unavailable Unavailable [place], DAVID RADHA RPA-C Unavailable Unavailable [place], DAVID RADHA RPA-C Unavailable Unavailable [place], DAVID RADHA RPA-C Unavailable Unavailable [place], DAVID RADHA RPA-C Unavailable Unavailable [place], DAVID RADHA RPA-C Unavailable Unavailable [place], DAVID RADHA RPA-C Unavailable Unavailable [place], DAVID RADHA RPA-C Unavailable Unavailable [place], DAVID RADHA RPA-C Unavailable Unavailable [place], DAVID RADHA RPA-C Unavailable Unavailable [place], DAVID RADHA RPA-C Unavailable Unavailable Jose E, A Mya WEBLOGIC ADMINISTRATOR Unavailable Unavailable Jose E, A Mya WEBLOGIC ADMINISTRATOR Unavailable Unavailable Jose E, A Mya WEBLOGIC ADMINISTRATOR Unavailable Unavailable Jose E, A Mya WEBLOGIC ADMINISTRATOR Unavailable Unavailable Jose E, A Mya WEBLOGIC ADMINISTRATOR Unavailable Unavailable Jose E, A Mya WEBLOGIC ADMINISTRATOR Unavailable Unavailable Jose E, A Mya WEBLOGIC ADMINISTRATOR Unavailable Unavailable Jose E, A Mya WEBLOGIC ADMINISTRATOR Unavailable Unavailable Jose E, A Mya WEBLOGIC ADMINISTRATOR Unavailable Unavailable Jose E, A Mya WEBLOGIC ADMINISTRATOR Unavailable Unavailable Jose E, A Mya WEBLOGIC ADMINISTRATOR Unavailable Unavailable Jose E, A Mya WEBLOGIC ADMINISTRATOR Unavailable Unavailable Jose E, A Mya WEBLOGIC ADMINISTRATOR Unavailable Unavailable Jose E, A Mya WEBLOGIC ADMINISTRATOR Unavailable Unavailable Jose E, A Mya WEBLOGIC ADMINISTRATOR Unavailable Unavailable Jose E, A Mya WEBLOGIC ADMINISTRATOR Unavailable Unavailable Jose E, A Mya WEBLOGIC ADMINISTRATOR Unavailable Unavailable Jose E, A Mya WEBLOGIC ADMINISTRATOR Unavailable Unavailable Jose E, A Mya WEBLOGIC ADMINISTRATOR Unavailable Unavailable Jose E, A Mya WEBLOGIC ADMINISTRATOR Unavailable Unavailable Jose E, A Mya WEBLOGIC ADMINISTRATOR Unavailable Unavailable Jose E, A Mya WEBLOGIC ADMINISTRATOR Unavailable Unavailable Jose E, A Mya WEBLOGIC ADMINISTRATOR Unavailable Unavailable Jose E, A Mya WEBLOGIC ADMINISTRATOR Unavailable Unavailable Jose E, A Mya WEBLOGIC ADMINISTRATOR Unavailable Unavailable Jose E, A Mya WEBLOGIC ADMINISTRATOR Unavailable Unavailable Jose E, A Mya WEBLOGIC ADMINISTRATOR Unavailable Unavailable [place], DAVID RADHA RPA-C Unavailable Unavailable [place], DAVID RADHA RPA-C Unavailable Unavailable [place], DAVID RADHA RPA-C Unavailable Unavailable [place], DAVID RADHA RPA-C Unavailable Unavailable [place], DAVID RADHA RPA-C Unavailable Unavailable [place], DAVID RADHA RPA-C Unavailable Unavailable [place], DAVID RADHA RPA-C Unavailable Unavailable [place], DAVID RADHA RPA-C Unavailable Unavailable [place], DAVID RADHA RPA-C Unavailable Unavailable [place], DAVID RADHA RPA-C Unavailable Unavailable [place], DAVID RADHA RPA-C Unavailable Unavailable [place], DAVID RADHA RPA-C Unavailable Unavailable [place], DAVID RADHA RPA-C Unavailable Unavailable [place], DAVID RADHA RPA-C Unavailable Unavailable [place], DAVID RADHA RPA-C Unavailable Unavailable [place], DAVID RADHA RPA-C Unavailable Unavailable [place], DAVID RADHA RPA-C Unavailable Unavailable [place], DAVID RADHA RPA-C Unavailable Unavailable [place], DAVID RADHA RPA-C Unavailable Unavailable [place], DAVID RADHA RPA-C Unavailable Unavailable [place], DAVID RADHA RPA-C Unavailable Unavailable [place], DAVID RADHA RPA-C Unavailable Unavailable [place], DAVID RADHA RPA-C Unavailable Unavailable [place], DAVID RADHA RPA-C Unavailable Unavailable [place], DAVID RADHA RPA-C Unavailable Unavailable [place], DAVID RADHA RPA-C Unavailable Unavailable [place], DAVID RADHA RPA-C Unavailable Unavailable [place], DAVID RADHA RPA-C Unavailable Unavailable [place], DAVID RADHA RPA-C Unavailable Unavailable [place], DAVID RADHA RPA-C Unavailable Unavailable [place], DAVID RADHA RPA-C Unavailable Unavailable [place], DAVID RADHA RPA-C Unavailable Unavailable [place], DAVID RADHA RPA-C Unavailable Unavailable [place], DAVID RADHA RPA-C Unavailable Unavailable [place], DAVID RADHA RPA-C Unavailable Unavailable [place], DAVID RADHA RPA-C Unavailable Unavailable [place], DAVID RADHA RPA-C Unavailable Unavailable [place], DAVID RADHA RPA-C Unavailable Unavailable AMBER, F LISS MD Unavailable Unavailable AMBER, F LISS MD Unavailable Unavailable AMBER, F LISS MD Unavailable Unavailable AMBER, F LISS MD Unavailable Unavailable AMBER, F LISS MD Unavailable Unavailable AMBER, F LISS MD Unavailable Unavailable AMBER, F LISS MD Unavailable Unavailable AMBER, F LISS MD Unavailable Unavailable AMBER, F LISS MD Unavailable Unavailable AMBER, F LISS MD Unavailable Unavailable AMBER, F LISS MD Unavailable Unavailable AMBER, F LISS MD Unavailable Unavailable AMBER, F LISS MD Unavailable Unavailable AMBER, F LISS MD Unavailable Unavailable AMBER, F LISS MD Unavailable Unavailable AMBER, F LISS MD Unavailable Unavailable AMBER, F LISS Unavailable Unavailable AMBER, F LISS Unavailable Unavailable AMBER, F LISS Unavailable Unavailable AMBER, F LISS Unavailable Unavailable AMBER, F LISS Unavailable Unavailable AMBER, F LISS MD Unavailable Unavailable AMBER, F LISS Unavailable Unavailable AMBER, F LISS Unavailable Unavailable AMBER, F LISS Unavailable Unavailable AMBER, F LISS MD Unavailable Unavailable AMBER, F LISS MD Unavailable Unavailable [place], DAVID RADHA RPA-C Unavailable Unavailable [place], DAVID RADHA RPA-C Unavailable Unavailable [place], DAVID RADHA RPA-C Unavailable Unavailable [place], DAVID RADHA RPA-C Unavailable Unavailable [place], DAVID RADHA RPA-C Unavailable Unavailable [place], DAVID RADHA RPA-C Unavailable Unavailable [place], DAVID RADHA RPA-C Unavailable Unavailable [place], DAVID RADHA RPA-C Unavailable Unavailable [place], DAVID RADHA RPA-C Unavailable Unavailable [place], DAVID RADHA RPA-C Unavailable Unavailable [place], DAVID RADHA RPA-C Unavailable Unavailable [place], DAVID RADHA RPA-C Unavailable Unavailable [place], DAVID RADHA RPA-C Unavailable Unavailable [place], DAVID RADHA RPA-C Unavailable Unavailable [place], DAVID RADHA RPA-C Unavailable Unavailable [place], DAVID RADHA RPA-C Unavailable Unavailable [place], DAVID RADHA RPA-C Unavailable Unavailable [place], DAVID RADHA RPA-C Unavailable Unavailable [place], DAVID RADHA RPA-C Unavailable Unavailable [place], DAVID RADHA RPA-C Unavailable Unavailable [place], DAVID RADHA RPA-C Unavailable Unavailable [place], DAVID RADHA RPA-C Unavailable Unavailable [place], DAVID RADHA RPA-C Unavailable Unavailable [place], DAVID RADHA RPA-C Unavailable Unavailable [place], DAVID RADHA RPA-C Unavailable Unavailable [place], DAVID RADHA RPA-C Unavailable Unavailable [place], DAVID RADHA RPA-C Unavailable Unavailable [place], DAVID RADHA RPA-C Unavailable Unavailable [place], DAVID RADHA RPA-C Unavailable Unavailable [place], DAVID RADHA RPA-C Unavailable Unavailable [place], DAVID RADHA RPA-C Unavailable Unavailable [place], DAVID RADHA RPA-C Unavailable Unavailable [place], DAVID RADHA RPA-C Unavailable Unavailable [place], DAVID RADHA RPA-C Unavailable Unavailable [place], DAVID RADHA RPA-C Unavailable Unavailable [place], DAVID RADHA RPA-C Unavailable Unavailable [place], DAVID RADHA RPA-C Unavailable Unavailable [place], DAVID RADHA RPA-C Unavailable Unavailable SILVA, SEVERO MATY PROPERTY MANAGEMENT BOOKKEEPER Unavailable Unavailable SILVA, SEVERO MATY PROPERTY MANAGEMENT BOOKKEEPER Unavailable Unavailable SILVA, SEVERO MATY PROPERTY MANAGEMENT BOOKKEEPER Unavailable Unavailable SILVA, SEVERO MATY PROPERTY MANAGEMENT BOOKKEEPER Unavailable Unavailable SILVA, SEVERO MATY PROPERTY MANAGEMENT BOOKKEEPER Unavailable Unavailable SILVA, SEVERO MATY PROPERTY MANAGEMENT BOOKKEEPER Unavailable Unavailable SILVA, SEVERO MATY PROPERTY MANAGEMENT BOOKKEEPER Unavailable Unavailable SILVA, SEVERO MATY PROPERTY MANAGEMENT BOOKKEEPER Unavailable Unavailable SILVA, SEVERO MATY PROPERTY MANAGEMENT BOOKKEEPER Unavailable Unavailable SILVA, SEVERO MATY PROPERTY MANAGEMENT BOOKKEEPER Unavailable Unavailable SILVA, SEVERO MATY PROPERTY MANAGEMENT BOOKKEEPER Unavailable Unavailable SILVA, SEVERO MATY PROPERTY MANAGEMENT BOOKKEEPER Unavailable Unavailable SILVA, SEVERO MATY PROPERTY MANAGEMENT BOOKKEEPER Unavailable Unavailable SILVA, SEVERO MATY PROPERTY MANAGEMENT BOOKKEEPER Unavailable Unavailable SILVA, SEVERO MATY PROPERTY MANAGEMENT BOOKKEEPER Unavailable Unavailable SILVA, SEVERO MATY PROPERTY MANAGEMENT BOOKKEEPER Unavailable Unavailable SILVA, SEVERO MATY PROPERTY MANAGEMENT BOOKKEEPER Unavailable Unavailable SILVA, SEVERO MATY PROPERTY MANAGEMENT BOOKKEEPER Unavailable Unavailable SILVA, SEVERO MATY PROPERTY MANAGEMENT BOOKKEEPER Unavailable Unavailable SILVA, SEVERO MATY PROPERTY MANAGEMENT BOOKKEEPER Unavailable Unavailable SLIVA, SEVERO MATY PROPERTY MANAGEMENT BOOKKEEPER Unavailable Unavailable SILVA, SEVERO MATY PROPERTY MANAGEMENT BOOKKEEPER Unavailable Unavailable SILVA, SEVERO MATY PROPERTY MANAGEMENT BOOKKEEPER Unavailable Unavailable Flores, M Judi PA-C Unavailable Unavailable Flores, M Judi PA-C Unavailable Unavailable Flores, M Judi PA-C Unavailable Unavailable Flores, M Judi PA-C Unavailable Unavailable Flores, M Judi PA-C Unavailable Unavailable Flores, M Judi PA-C Unavailable Unavailable Flores, M Judi PA-C Unavailable Unavailable Flores, M Judi PA-C Unavailable Unavailable Flores, M Judi PA-C Unavailable Unavailable Flores, M Judi PA-C Unavailable Unavailable Flores, M Judi PA-C Unavailable Unavailable Flores, M Judi PA-C Unavailable Unavailable Flores, M Judi PA-C Unavailable Unavailable Flores, M Judi PA-C Unavailable Unavailable Flores, M Judi PA-C Unavailable Unavailable Flores, M Judi PA-C Unavailable Unavailable Flores, M Judi PA-C Unavailable Unavailable Flores, M Judi PA-C Unavailable Unavailable Flores, M Judi PA-C Unavailable Unavailable Flores, M Judi PA-C Unavailable Unavailable Flores, M Judi PA-C Unavailable Unavailable Flores, M Judi PA-C Unavailable Unavailable Flores, M Judi PA-C Unavailable Unavailable Flores, M Judi PA-C Unavailable Unavailable Flores, M Judi PA-C Unavailable Unavailable Flores, M Judi PA-C Unavailable Unavailable Flores, M Judi PA-C Unavailable Unavailable Flores, M Judi PA-C Unavailable Unavailable Flores, M Judi PA-C Unavailable Unavailable Flores, M Judi PA-C Unavailable Unavailable Flores, M Judi PA-C Unavailable Unavailable Mya Dorantes WEBLOGIC ADMINISTRATOR WEBLOGIC ADMINISTRATOR Unavailable Unavailable [facility], RFROST [place] PA RADHA Unavailable Unavailable Re-disclosure Warning The records that you are about to access may contain information from federally-assisted alcohol or drug abuse programs. If such information is present, then the following federally mandated warning applies: This information has been disclosed to you from records protected by federal confidentiality rules (42 CFR part 2). The federal rules prohibit you from making any further disclosure of this information unless further disclosure is expressly permitted by the written consent of the person to whom it pertains or as otherwise permitted by 42 CFR part 2. A general authorization for the release of medical or other information is NOT sufficient for this purpose. The Federal rules restrict any use of the information to criminally investigate or prosecute any alcohol or drug abuse patient.The records that you are about to access may contain highly sensitive health information, the redisclosure of which is protected by Article 27-F of the [facility] Public Health law. If you continue you may have access to information: Regarding HIV / AIDS; Provided by facilities licensed or operated by the [facility] Office of Mental Health; or Provided by the [facility] Office for People With Developmental Disabilities. If such information is present, then the following [facility] mandated warning applies: This information has been disclosed to you from confidential records which are protected by state law. State law prohibits you from making any further disclosure of this information without the specific written consent of the person to whom it pertains, or as otherwise permitted by law. Any unauthorized further disclosure in violation of state law may result in a fine or [place] [facility] sentence or both. A general authorization for the release of medical or other information is NOT sufficient authorization for further disc losure. Allergies and Adverse Reactions Type Description Substance Reaction Status Data Source(s ) aspirin Aspirin Aspirin prophylaxis Active eCW1 ([facility]) artificial cinnamon artificial cinnamon artificial cinnamon Anaphylax is Active eCW1 ([facility]) wasp wasp wasp severe swelling Active eCW1 ([facility]) PERTUSSIS PERTUSSIS PERTUSSIS Unknown Active eCW1 ([facility]) artificial cinnamon artificial cinnamon artificial cinnamon Anaphylax is Active eCW1 ([facility]) wasp wasp wasp severe swelling Active eCW1 ([facility]) PROTUSSIS PROTUSSIS PROTUSSIS Unknown Active eCW1 ([facility]) PROTUSSIS PROTUSSIS PROTUSSIS Unknown Active eCW1 ([facility]) wasp wasp wasp severe swelling Active eCW1 ([facility]) artificial cinnamon artificial cinnamon artificial cinnamon Anaphylax is Active eCW1 ([facility]) artificial cinnamon artificial cinnamon artificial cinnamon Anaphylax is Active eCW1 ([facility]) wasp wasp wasp severe swelling Active eCW1 ([facility]) PROTUSSIS PROTUSSIS PROTUSSIS Unknown Active eCW1 ([facility]) Allergy to substance Allergy to substance Allergy to substance [facility] ([facility]) Encounters Encounter Providers Location Date Indications Data Source(s ) Outpatient Attender: Rajat Gibbs MD Main Office 06/13/2020 08:15:00 AM [facility] ([facility]) Outpatient Attender: MATY SILVA NPConsultant: RADHA [place] RPA-C 06/12/2020 09:17:00 AM EST - 06/12/2020 09:17:00 AM [facility] Outpatient Attender: Judi TAVERA ttender: LISS CLARK MDConsultant: RADHA [place] RPA-C 05/23/2020 08:25:00 AM EST - 05/23/2020 08:25: 00 AM [facility] Outpatient Attender: LISS CLARK MDConsultant: RADHA MCBRIDE RPA-C 05/17/2020 01:50:00 PM EST - 05/17/2020 02:50:00 PM [facility] Outpatient Attender: LISS CLARK MDConsultant: RADHA MCBRIDE RPA-C 05/16/2020 02:39:00 PM EST - 05/16/2020 02:39:00 PM EST [facility] Outpatient Attender: ILSS CLARK MD Family Practice 01/2020 02:30:00 PM EST [facility] ([facility]) Outpatient Attender: Judi ZAMBRANO-CConsultant: RADHA MCBRIDE RPA-C 05/09/2020 03:03:00 PM EST - 05/09/2020 03:03:00 PM EST [facility] Outpatient Attender: NITHIN ty 04/07/2020 08:25:00 AM EDT [facility] ([facility]) Office Visit, Est Pt., Level 3 PC [address] [place] [address] 04/04/2020 12:00:00 AM EDT eCW1 ([facility]) RESHMA Rainey: [address] [facility], [facility] [address], [place] [address], Ph. Attender: RADHA JUSTICE [facility] Medical 04/03/2020 12:00:00 AM EDT CHAO ([facility]) Emergency Attender: BETINA CLOUD MDConsultant: RADHA JOHANSENC 03/26/2020 03:58:00 PM EDT - 03/26/2020 07:09:00 PM EDT [facility] Patient discharged. Outpatient Attender: SAIDA [facility]ARCIA [facility] 12/08 01:26:00 PM EDT [facility] [address] [place] [address] 12/27/2019 12:00:00 AM EDT eCW1 ([facility]) Outpatient Attender: RADHA JUSTICE [facility] 12/16/2019 10:52:01 AM EDT [facility] ([facility] [id number]) WCenter 15 min est director community health nursing [address] [place] [address] 12/01/2019 12:00:00 AM EDT eCW1 ([facility]) Unknown [address] [facility] [place] [address] 11/15/2019 12:00:00 AM EDT eCW1 ([facility]) [facility] [address] [place] [address] 11/15/2019 12:00:00 AM EDT eCW1 ([facility]) [facility] Urology [address] [facility] [place] [address] 11/04/2019 12:00:00 AM EDT eCW1 ([facility]) [facility] Urology [address] [facility] [place] [address] 11/04/2019 12:00:00 AM EDT eCW1 ([facility]) Outpatient [address] [facility] [address] 11/03/2019 12:00:00 AM EDT eCW1 ([facility]) [facility] [address] [place] [address] 10/29/2019 12:00:00 AM EDT eCW1 ([facility]) [facility] [address] [place] [address] 10/27/2019 12:00:00 AM EDT eCW1 ([facility]) [facility] [address] [place] [address] 10/26/2019 12:00:00 AM EDT eCW1 ([facility]) [facility] [address] [place] [address] 10/08/2019 12:00:00 AM EDT eCW1 ([facility]) Outpatient Attender: SAIDA GARCIA [facility] 09/08 11:23:01 AM EDT [facility] Outpatient Attender: ARIANE RAY 09/14/2019 10:11:00 A M EDT [facility] Outpatient Attender: ARIANE WEATHERSP FP 09/10/2019 09:30:06 A M EDT [facility] Outpatient Attender: ARIANE WEATHERSP FP 09/07/2019 12:24:01 P M EDT [facility] Outpatient Attender: ARIANE WEATHERSP FP 09/03/2019 08:06:05 P M EDT [facility] Health Outpatient Attender: Mya WEATHERSP FP 09/03/2019 08:0 6:02 PM EDT [facility] Outpatient Attender: ARIANE WEATHERSP FP 08/31/2019 04:12:01 P M EDT [facility] Outpatient Attender: ARIANE WEATHERSP FP 08/31/2019 03:46:02 P M EDT [facility] Outpatient Attender: ARIANE WEATHERSP FP 08/31/2019 02:45:00 P M EDT [facility] Outpatient Attender: ARIANE WEATHERSP FP 08/25/2019 03:56:00 P M EDT [facility] Outpatient Attender: Mya WEATHERSP FP 08/25/2019 12:0 3:01 PM EDT [facility] Outpatient Attender: Mya WEATHERSP FP 08/24/2019 06:2 4:59 PM EDT [facility] Outpatient Attender: ARIANE Dorantes WEBLOGIC ADMINISTRATOR FP 08/22/2019 03:41:02 P M EDT [facility] Outpatient Attender: Mya WEATHERSP FP 08/22/2019 03:4 1:01 PM EDT [facility] Outpatient Attender: ARIANE WEATHERSP FP 08/22/2019 03:40:01 P M EDT [facility] Outpatient Attender: Mya WEATHERSP FP 08/22/2019 03:4 0:00 PM EDT [facility] Outpatient Attender: ARIANE WEATHERSP FP 08/18/2019 01:58:03 P M EDT [facility] [facility] Attender: ARIANE WEATHERSP FP 08/18/2019 01:18:02 P M EDT [facility] Outpatient Attender: ARIANE WEATHERSP FP 08/17/2019 01:42:01 P M EDT [facility] Attender: NAHID JORGE RAY 08/13/2019 08:03:30 PM [facility] Outpatient 08/12/2019 12:00:00 PM EST [facility] Outpatient Attender: NAHID JORGE RAY 08/11/2019 11:22:01 AM [facility] Outpatient Attender: NAHID JORGE RAY 08/09/2019 09:04:00 AM [facility] Outpatient Attender: NAHID RAY 08/04/2019 05:24:59 PM [facility] Outpatient Attender: NAHID JORGE RAY 08/03/2019 10:48:02 PM [facility] Outpatient Attender: NAHID RAY 08/03/2019 10:48:01 PM [facility] Outpatient Attender: NAHID RAY 08/03/2019 10:47:00 PM [facility] Outpatient Attender: NAHID RAY 08/03/2019 10:47:00 PM [facility] Outpatient Attender: NAHID RAY 08/03/2019 10:46:01 PM [facility] [address] [address] 08/03/2019 12:00:00 AM EST eCW1 ([facility]) Outpatient Attender: NAHID RAY 08/02/2019 03:42:00 PM [facility] [address] [address] 08/02/2019 12:00:00 AM EST eCW1 ([facility] Outpatient Attender: NAHID RAY 07/30/2019 03:22:01 PM [facility] Outpatient Attender: ANYASTEPHANIE RAY 07/30/2019 02:29:01 PM [facility] Outpatient Attender: ANYASTEPHANIE RAY 07/28/2019 09:41:00 AM [facility] [address] [address] 07/22/2019 12:00:00 AM EST eCW1 ([facility]) Outpatient Attender: NAHID RAY 07/21/2019 05:46:02 PM [facility] Outpatient Attender: NAHID PATEL FP 07/21/2019 04:42:01 PM [facility] Outpatient Attender: NAHID PATEL FP 07/20/2019 07:29:02 AM [facility] Outpatient Attender: NAHID PATEL FP 07/20/2019 07:29:01 AM [facility] [address] [address] 07/20/2019 12:00:00 AM EST eCW1 ([facility]) Outpatient Attender: NAHID PATEL FP 07/15/2019 10:49:00 AM [facility] Outpatient Attender: NAHID PATEL FP 07/15/2019 10:15:08 AM [facility] [address] [place] [address] 07/15/2019 12:00:00 AM EST eCW1 ([facility]) Outpatient Attender: NAHID PATEL FP 07/14/2019 10:15:01 AM [facility] Outpatient Attender: NAHID PATEL FP 07/08/2019 11:21:51 AM [facility] Outpatient Attender: NAHID PATEL FP 07/07/2019 12:07:01 PM [facility] Outpatient 07/05/2019 09:31:00 PM EST [facility] Outpatient Attender: NAHID PATEL FP 07/05/2019 01:09:02 PM [facility] Outpatient 07/05/2019 12:33:00 PM EST [facility] Outpatient Attender: NAHID PATEL FP 07/05/2019 09:42:01 AM [facility] Outpatient Attender: NAHID PATEL FP 07/05/2019 09:19:00 AM [facility] Outpatient Attender: NAHID PATEL FP 07/02/2019 09:33:50 AM [facility] Outpatient Attender: NAHID PATEL FP 06/30/2019 09:46:03 AM [facility] [address] [address] 06/29/2019 12:00:00 AM EST eCW1 ([facility]) Outpatient Attender: NAHID BYRONFH FP 06/23/2019 03:02:00 PM [facility] Outpatient Attender: NAHID NCFH FP 06/23/2019 12:12:01 PM [facility] Outpatient Attender: NAHID BYRONFH FP 06/17/2019 01:04:00 PM [facility] Outpatient Attender: ANYASTEPHANIE MATTHEWSFH FP 06/16/2019 02:55:01 PM [facility] Outpatient Attender: NAHID BYRONFH FP 06/16/2019 11:20:02 AM [facility] Outpatient Attender: NAHID PATEL FP 06/16/2019 10:21:01 AM [facility] Outpatient Attender: NAHID PATEL FP 06/16/2019 10:03:00 AM [facility] [address] [address] 06/16/2019 12:00:00 AM EST eCW1 ([facility]) Outpatient Attender: NAHID JORGE FP 06/15/2019 10:07:02 AM [facility] Outpatient Attender: NAHID PATEL FP 06/15/2019 10:07:00 AM [facility] Outpatient Attender: ANYASTEPHANIE MATTHEWSFH FP 06/14/2019 12:30:00 PM [facility] Outpatient Attender: NAHID MATTHEWSFH FP 06/14/2019 12:29:01 PM [facility] Outpatient Attender: NAHID MATTHEWSFH FP 06/14/2019 12:28:00 PM [facility] Outpatient Attender: ANYASTEPHANIE PATEL FP 06/11/2019 09:01:03 PM [facility] Outpatient Attender: NAHID PATEL FP 06/11/2019 02:26:02 PM [facility] Outpatient Attender: NAHID MATTHEWSFH FP 06/11/2019 02:26:00 PM [facility] Outpatient Attender: NAHID PATEL FP 06/11/2019 02:25:02 PM [facility] Outpatient Attender: NAHID PATEL FP 06/11/2019 02:25:02 PM [facility] Outpatient Attender: NAHID PATEL FP 06/11/2019 01:39:04 PM [facility] Outpatient Attender: NAHID PATEL FP 06/11/2019 01:39:04 PM [facility] Outpatient Attender: NAHID RAY 06/11/2019 01:29:01 PM [facility] Outpatient Attender: NAHID PATEL FP 06/11/2019 01:29:01 PM [facility] Outpatient Attender: NAHID PATLE FP 06/11/2019 01:12:05 PM [facility] Outpatient Attender: NAHID PATEL FP 06/11/2019 11:40:00 AM [facility] Outpatient Attender: NAHID PATEL FP 06/11/2019 11:16:02 AM [facility] Outpatient Attender: NAHID PATEL FP 06/11/2019 11:05:01 AM [facility] Outpatient Attender: NAHID PATEL FP 06/11/2019 10:26:01 AM [facility] Outpatient Attender: NAHID PATEL FP 06/11/2019 08:40:00 AM [facility] Outpatient Attender: NAHID PATEL FP 06/11/2019 08:38:00 AM [facility] Immunizations Vaccine Date Status Description Data Source(s) New in 2011. IIV4 05/09/2020 03:48:00 PM EST completed [facility] ([facility]) Medications Medication Brand Name Start Date Product Form Dose Route Admi nistrative Instructions Pharmacy Instructions Status Indications Reaction Description Data Source(s) Suprep Bowel Prep Kit Suprep Bowel Prep Kit 06/13/2020 12:00:00 AM EST active [facility] ([facility]) Hyoscyamine Sulfate 0.125 MG Disintegrating Oral Tablet Hyos cyamine Sulfate 06/13/2020 12:00:00 AM EST ORAL active [facility] ([facility]) Omeprazole 40 MG Delayed Release Oral Capsule Omeprazole 06/13/2020 12:00:00 AM EST ORAL active [facility] ([facility]) Cholecalciferol 91760 UNT Oral Tablet Vitamin D3 Ultra Poten cy 05/25/2020 12:00:00 AM EST ORAL active M [facility]ENT ([facility]) Amoxicillin 875 MG / Clavulanate 125 MG Oral Tablet Am oxicillin/Clavulanate Potassium 04/07/2020 12:00:00 AM EDT ORAL active [facility] ([facility]) Tylenol with Codeine #3 300-30 MG UNK 11/03/2019 12:00:00 AM EDT 1.0 {tablet_as_needed} suspended Tylenol wit h Codeine #3 300-30 MG eCW1 ([facility]) Acetaminophen 300 MG / Codeine Phosphate 30 MG Oral Tablet [Tylenol with Codeine] Tylenol with Codeine #3 300-30 MG Tylenol with Codeine #3 300-30 MG 11/03/2019 12:00:00 AM EDT 1.0 {tablet_as_needed} active Tylenol with Codeine #3 300-30 MG eCW1 ([facility]) Acetaminophen 300 MG / Codeine Phosphate 30 MG Oral Tablet [Tylenol with Codeine] Tylenol with Codeine #3 300-30 MG Tylenol with Codeine #3 300-30 MG 11/03/2019 12:00:00 AM EDT 1.0 {tablet_as_needed} active Tylenol with Codeine #3 300-30 MG eCW1 ([facility]) Tylenol with Codeine #3 300-30 MG UNK 11/03/2019 12:00:00 AM EDT 1.0 {tablet_as_needed} suspended Tylenol wit h Codeine #3 300-30 MG eCW1 ([facility]) Ibuprofen 800 MG Oral Tablet Ibuprofen 800 MG 10/08/2019 12:00:00 AM E DT active Ibuprofen 800 MG eCW1 ([facility]) Ibuprofen 800 MG Oral Tablet Ibuprofen 800 MG 10/08/2019 12:00:00 AM E DT active Ibuprofen 800 MG eCW1 ([facility]) Ibuprofen 800 MG Oral Tablet Ibuprofen 800 MG 10/08/2019 12:00:00 AM E DT active 1 tablet with food or mil k as needed eCW1 ([facility]) Ibuprofen 800 MG Oral Tablet Ibuprofen 800 MG 10/08/2019 12:00:00 AM E DT active Ibuprofen 800 MG eCW1 ([facility]) Ibuprofen 800 MG Oral Tablet Ibuprofen 800 MG 10/08/2019 12:00:00 AM E DT suspended Ibuprofen 800 MG eCW1 ([facility]) Sulfamethoxazole 800 MG / Trimethoprim 1 60 MG Oral Tablet Sulfamethoxazole- Trimethoprim 800-160 MG Sulfamethoxazole-Trimethoprim 800-160 MG 07/22/2019 12:00:00 AM EST active 1 tablet eCW1 ([facility]) Sulfamethoxazole 800 MG / Trimethoprim 1 60 MG Oral Tablet Sulfamethoxazole- Trimethoprim 800-160 MG Sulfamethoxazole-Trimethoprim 800-160 MG 07/22/2019 12:00:00 AM EST active 1 tablet eCW1 ([facility]) Sulfamethoxazole 800 MG / Trimethoprim 1 60 MG Oral Tablet Sulfamethoxazole- Trimethoprim 800-160 MG Sulfamethoxazole-Trimethoprim 800-160 MG 07/22/2019 12:00:00 AM EST 1.0 {tablet} suspended Sulfamethoxazole-Trimethoprim 800-160 MG eCW1 ([facility]) Sulfamethoxazole 800 MG / Trimethoprim 1 60 MG Oral Tablet Sulfamethoxazole- Trimethoprim 800-160 MG Sulfamethoxazole-Trimethoprim 800-160 MG 07/22/2019 12:00:00 AM EST suspended 1 tab let eCW1 ([facility]) Sulfamethoxazole 800 MG / Trimethoprim 1 60 MG Oral Tablet Sulfamethoxazole- Trimethoprim 800-160 MG Sulfamethoxazole-Trimethoprim 800-160 MG 07/22/2019 12:00:00 AM EST 1.0 {tablet} suspended Sulfamethoxazole-Trimethoprim 800-160 MG eCW1 ([facility]) Sulfamethoxazole 800 MG / Trimethoprim 1 60 MG Oral Tablet [Bactrim] Bactrim DS 800-160 MG Bactrim DS 800-160 MG 07/20/2019 12:00:00 AM EST suspended 1 tablet 1 hour prior to your cystoscopy eCW1 ([facility]) Sulfamethoxazole 800 MG / Trimethoprim 1 60 MG Oral Tablet [Bactrim] Bactrim DS 800-160 MG Bactrim DS 800-160 MG 07/20/2019 12:00:00 AM EST suspended Bactrim DS 800-160 MG eCW1 ([facility]) Sulfamethoxazole 800 MG / Trimethoprim 1 60 MG Oral Tablet [Bactrim] Bactrim DS 800-160 MG Bactrim DS 800-160 MG 07/20/2019 12:00:00 AM EST active 1 tablet 1 hour prior to your cystoscopy eCW1 ([facility]) Sulfamethoxazole 800 MG / Trimethoprim 1 60 MG Oral Tablet [Bactrim] Bactrim DS 800-160 MG Bactrim DS 800-160 MG 07/20/2019 12:00:00 AM EST active 1 tablet 1 hour prior to your cystoscopy eCW1 ([facility]) Sulfamethoxazole 800 MG / Trimethoprim 1 60 MG Oral Tablet [Bactrim] Bactrim DS 800-160 MG Bactrim DS 800-160 MG 07/20/2019 12:00:00 AM EST suspended Bactrim DS 800-160 MG eCW1 ([facility]) benzonatate 100 MG Oral Capsule benzonatate 100 mg cap marek benzonatate 100 mg capsule completed benzonatate 10 0 MG Oral Capsule CHAO ([facility]) NITROFURANTOIN, MACROCRYSTALS 25 MG / Ni trofurantoin, Monohydrate 75 MG Oral Capsule nitrofurantoin monohydrate/macrocrystals 100 mg capsule nitrofurantoin monohydrate/macrocrystals 100 mg capsule completed nitrofurantoin, macrocrystals 25 MG / nitrofurantoin, monohydrate 75 MG Oral Capsule [facility] ([facility]) tramadol hydrochloride 50 MG Oral Tablet tramadol 50 m g tablet tramadol 50 mg tablet completed tramadol hydroc hloride 50 MG Oral Tablet [place] ([facility]) Sulfamethoxazole 800 MG / Trimethoprim 1 60 MG Oral Tablet sulfamethoxazole 800 mg-trimethoprim 160 mg tablet sulfamethoxazole 800 mg-trimethoprim 160 mg tablet completed sulfame thoxazole 800 MG / trimethoprim 160 MG Oral Tablet [facility] ([facility]) cefdinir 300 MG Oral Capsule cefdinir 300 mg capsule cefdinir 30 0 mg capsule completed cefdinir 300 M G Oral Capsule [facility] ([facility]) Ondansetron 4 MG Disintegrating Oral Tab let ondansetron 4 mg disintegrating tablet ondansetron 4 mg disintegrating tablet completed ondansetron 4 MG Disintegrating Oral Tablet [facility] ([facility]) Amoxicillin 875 MG / Clavulanate 125 MG Oral Tablet amoxicillin 875 mg-potassium clavulanate 125 mg tablet amoxicillin 875 mg-potassium clavulanate 125 mg tablet completed amoxici [place]lin 875 MG / clavulanate 125 MG Oral Tablet CHAO ([facility]) Escitalopram 10 MG Oral Tablet escitalopram 10 mg tabl et escitalopram 10 mg tablet completed escitalopram 10 MG Oral Tablet [facility] ([facility]) Omeprazole 20 MG Delayed Release Oral Ca psule omeprazole 20 mg capsule,delayed release omeprazole 20 mg capsule,delayed release completed omeprazole 20 MG Delayed Release Oral Capsule [facility] ([facility]) Ondansetron 4 MG Oral Tablet ondansetron HCl 4 mg tabl et ondansetron HCl 4 mg tablet completed ondansetron 4 M G Oral Tablet [facility] ([facility]) Ibuprofen 800 MG Oral Tablet ibuprofen 800 mg tablet ibuprofen 8 00 mg tablet completed ibuprofen 800 MG Oral Tablet [facility] ([facility]) Tamsulosin hydrochloride 0.4 MG Oral Capsule tamsulosi n 0.4 mg capsule tamsulosin 0.4 mg capsule completed tamsulosin hydrochloride 0.4 MG Oral Capsule [facility] ([facility]) Promethazine Hydrochloride 25 MG Oral Tablet promethaz ine 25 mg tablet promethazine 25 mg tablet completed promethazine hydrochloride 25 MG Oral Tablet [facility] ([facility]) Acetaminophen 325 MG / Oxycodone Hydroch loride 5 MG Oral Tablet oxycodone- acetaminophen 5 mg-325 mg tablet oxycodone-acetaminophen 5 mg-325 mg tablet completed acetaminop hen 325 MG / oxycodone hydrochloride 5 MG Oral Tablet [facility] ([facility]) Acetaminophen 300 MG / Codeine Phosphate 30 MG Oral Tablet acetaminophen 300 mg- codeine 30 mg tablet acetaminophen 300 mg-codeine 30 mg tablet completed acetaminophen 300 MG / codeine p hosphate 30 MG Oral Tablet [facility] ([facility]) Acetaminophen 325 MG / Hydrocodone [place] trate 5 MG Oral Tablet hydrocodone 5 mg- acetaminophen 325 mg tablet hydrocodone 5 mg-acetaminophen 325 mg tablet completed acetaminophen 325 MG / hydrocodone bitartrate 5 MG Oral Tablet [facility] ([facility]) Insurance Providers Payer name Policy type / Coverage type Policy ID Covered democrat ID Covered democrat's relationship to de paz Policy [place] Plan Information [facility] [id number] SP [id number] BCBS REGINA HMO [id number] SP [id number] [facility] COMMUNTY PLAN [id number] [facility] XIX [id number] BLUE CROSS BLUE SHIELD -PHYSICIAN [id number] BLUE CROSS BLUE SHIELD -O/P [id number] 18 [id number] [employer] BC-BS PPO 306 [id number] SP [id number] BLUE CROSS BLUE SHIELD -O/P 123 18 123 BCBS REGINA HMO [id number] SP [id number] [place]BS [place] PPO 302/307 [id number] SP [id number] [employer] BCBS P [id number] S [id number] BCBS REGINA HMO [id number] SP [id number] [employer] BCBS B [id number] S [id number] BCBS [place] PPO 302/307 [id number] SP [id number] O [id number] S [id number] Managed Care - [facility] Community Plan P [id number] S [id number] Medicaid S [id number] S [id number] Managed Care - Community Plan [facility] P [id number] S [id number] Managed Care - Community Plan [facility] P [id number] S [id number] MEDICAID [id number] SP [id number] [facility] [id number] SP [id number] Medicaid S [id number] S [id number] Self Pay P UNAVAILABLE S UNAVAILA BLE Problems, Conditions, and Diagnoses Code Display Name Description Problem Type Effective Dates Data Source(s) 87030580 Abdominal pain Abdominal pain Problem 06/13/2020 12:00: 00 AM EST [facility] ([facility]) [id number] Recurrent major depressive episodes Recu rrent major depressive episodes Problem 05/09/2020 12:00:00 AM EST [facility] ([facility]) [id number] Anxiety state Anxiety state Problem 05/09/2020 12:00:00 AM EST [facility] ([facility]) V85.32 Body Mass Index 32.0-32.9, adult Body Mass Index 32.0- 32.9, adult 12/16/2019 10:51:15 AM EDT [facility] [id number] Obesity, unspecified Obesity, unspecified 12/16/2019 10:51:15 AM EDT [facility] 787.02 Nausea Nausea 09/10/2019 09:28:53 AM ED T [facility] 789.00 C/O pelvic pain C/O pelvic pain 09/03/2019 08:0 5:58 PM EDT [facility] 786.2 Cough Cough 08/31/2019 04:10:46 PM ED T [facility] V65.8 Person consulting for explanation of exa mination or test findings Person consulting for explanation of examination or test findings 08/31/2019 03:45:18 PM EDT [facility] 478.19 Congestion of nasal sinus Congestion of nasal sinus 08/31/2019 03:45:18 PM EDT [facility] [id number] Patient asked to attend Patient Asked to Attend Proble 08/31/2019 12:00:00 AM EDT - 04/03/2020 12:00:00 AM EDT [facility]) 788.1 Dysuria Dysuria 08/18/2019 01:56:39 PM ED T [facility] [id number] Continuous abdominal pain of left lower quadrant Continuous abdominal pain of left lower quadrant 08/18/2019 01:16:59 PM EDT [facility] 789.02 Abdominal pain, left upper quadrant Abdominal pa in, left upper quadrant 07/30/2019 03:21:58 PM EST [facility] R31.0 Gross hematuria Gross hematuria Problem 07/20/2019 12:0 0:00 AM EST eCW1 ([facility]) R31.0 Gross hematuria Gross hematuria Problem 07/20/2019 12:0 0:00 AM EST eCW1 ([facility]) 592.0 Kidney stone Kidney stone 07/15/2019 09:33:19 A M EST [facility] [id number] Kidney stone Kidney Stone Problem 07/15/2019 12:00:00 A M EST [facility] ([facility]) N20.0 Kidney stone Kidney stone Problem 06/16/2019 12:00:00 A M EST [place] ([facility]) N20.0 Kidney stone Kidney stone Problem 06/16/2019 12:00:00 A M EST eCW1 ([facility]) 788.0 Renal colic Renal colic 06/11/2019 10:25:52 AM [facility] V70.0 Health Screening Health Screening 06/11/2019 10 :25:52 AM [facility] 300.4 Mixed anxiety and depressive disorder Mi xed anxiety and depressive disorder 06/11/2019 10:25:52 AM [facility] [id number] Clinical finding Clinical Finding Problem 020 12:00:00 AM EST - 04/03/2020 12:00:00 AM EDT [facility] ([facility]) 9370158 Renal colic Renal Colic Problem 06/11/2019 12:00:00 AM EST [place] ([facility]) [id number] SNOMED CT Concept SNOMED CT Concept Problem 03/12 12:00:00 AM EDT - 04/03/2020 12:00:00 AM EDT [facility] ([facility]) [id number] Screening for malignant neoplasm of cerv ix Screening for Malignant Neoplasm of Cervix Problem 03/12/2018 12:00:00 AM EDT - 04/03/2020 12:00:00 AM EDT [facility] ([facility]) Z8049 Family history of malignant neoplasm of other genital organs Family history of malignant neoplasm of other genital organs Diagnosis 06/12/2020 09:17:00 AM [facility] Z803 Family history of malignant neoplasm of breast Family history of malignant neoplasm of breast Diagnosis 06/12/2020 09:17:00 AM [facility] Z0001 Encounter for general adult medical exam ination with abnormal findings Encounter for general adult medical examination with abnormal findings Diagnosis 05/23/2020 08:25:00 AM [facility] R109 Unspecified abdominal pain Unspecified abdominal pain Diagnosis 05/23/2020 08:25:00 AM [facility] Z719 Counseling, unspecified Counseling, unspecified Diagno sis 05/16/2020 02:39:00 PM [facility] Z23 Encounter for immunization Encounter for immunization Diagnosis 05/09/2020 03:03:00 PM [facility] I48459 Unspecified ovarian cyst, right side Uns pecified ovarian cyst, right side Diagnosis 05/09/2020 03:03:00 PM [facility] F339 Major depressive disorder, recurrent, un specified Major depressive disorder, recurrent, unspecified Diagnosis 05/09/2020 03:03:00 PM [facility] F419 Anxiety disorder, unspecified Anxiety disorder, unspec ified Diagnosis 05/09/2020 03:03:00 PM [facility] I79933 Other ovarian cyst, right side Other ovarian cyst, rig ht side Diagnosis 03/26/2020 03:58:00 PM EDT [facility] J0120 Acute ethmoidal sinusitis, unspecified A cute ethmoidal sinusitis, unspecified Diagnosis 03/26/2020 03:58:00 PM EDT [facility] J0110 Acute frontal sinusitis, unspecified Acute front al sinusitis, unspecified Diagnosis 03/26/2020 03:58:00 PM EDT [facility] J0100 Acute maxillary sinusitis, unspecified A cute maxillary sinusitis, unspecified Diagnosis 03/26/2020 03:58:00 PM EDT [facility] R1032 Left lower quadrant pain Left lower quadrant pain Diag nosis 03[facility]26[facility] Procedure Description Date Indications Data Source(s) Brief Emotional/Behav Assessment W/ Scoring Doc Per Standard Inst 05/09/2020 12:00:00 AM EST [facility] ([facility]) Admin Patient Focused Health Risk Assessment Instrument 05/09/2020 12:00:00 AM EST [facility] ([facility]) CYSTOSCOPY 08/03/2019 12:00:00 AM EST e CW1 ([facility]) URINE-NO MICRO 08/03/2019 12:00:00 AM EST eCW1 ([facility]) Results ID Date Data Source [id number] 06/16/2020 11:00:00 AM EST [facility] Name Value Range Interpretation Code Description Data Sun rce(s) Supporting Document(s) SARS coronavirus 2 RNA Not Detected [facility] [place] This lab was ordered by [facility] and reported by [facility]. ID Date Data Source [id number] 06/12/2020 09:45:00 AM EST [facility] ([facility]) Name Value Range Interpretation Code Description Data Sun rce(s) Supporting Document(s) Laboratory test finding (navigational concept) Laboratory test result [facility] ([facility]) ID Date Data Source [id number] 05/23/2020 08:20:00 AM EST [facility] ([facility]) Name Value Range Interpretation Code Description Data Sun rce(s) Supporting Document(s) Amylase [Enzymatic activity/volume] in Serum or Plasma 72 U/L 30- 110 [facility] ([facility]) Is patient fasting? N Lipase [Enzymatic activity/volume] in Serum or Plasma 42 U/L 13-6 0 [facility] ([facility]) Is patient fasting? N ID Date Data Source [id number] 05/23/2020 08:20:00 AM EST [facility] ([facility]) Name Value Range Interpretation Code Description Data Sun rce(s) Supporting Document(s) Calcidiol [Mass/volume] in Serum or Plasma 20 ng/mL [facility] ([facility]) Is patient fasting? N ID Date Data Source [id number] 05/23/2020 08:20:00 AM EST [facility] ([facility]) Name Value Range Interpretation Code Description Data Sun rce(s) Supporting Document(s) Cve Panel Laboratory test result [facility] ([facility]) Is patient fasting? N Triglycerides 163 mg/dL 35-160 Above high normal MEDE NT ([facility]) Is patient fasting? N Cholesterol 183 mg/dL 131-200 [facility] ([facility]) Is patient fasting? N HDL 44 mg/dL 29-86 [facility] ([facility]) Is patient fasting? N Risk Factor 4.2 3.2-4.4 [facility] ([facility]) Is patient fasting? N LDL 122 mg/dL 65-175 [facility] ([facility]) Is patient fasting? N LDL/HDL 2.77 1.47-3.22 [facility] ([facility]) Is patient fasting? N ID Date Data Source [id number] 05/23/2020 08:20:00 AM EST [facility] ([facility]) Name Value Range Interpretation Code Description Data Sun rce(s) Supporting Document(s) Thyrotropin [Units/volume] in Serum or Plasma 1.72 uIU/mL 0.47-5.01 [facility] ([facility]) Is patient fasting? N Hemoglobin A1c/Hemoglobin.total in Blood 4.5 % 4.4-6.1 [facility] ([facility]) Is patient fasting? N ID Date Data Source [id number] 05/23/2020 08:20:00 AM EST [facility] ([facility]) Name Value Range Interpretation Code Description Data Sun rce(s) Supporting Document(s) Comprehensive Metabo Laboratory test result [facility] ([facility]) Is patient fasting? N Sodium 140 meq/L 134-153 [facility] ([facility]) Is patient fasting? N Potassium 4.5 meq/L 3.6-5.0 [facility] ([facility]) Is patient fasting? N Co2 29 meq/L 22-30 [facility] Is patient fasting? N Chloride 102 meq/L 98-107 [facility] ([facility]) Is patient fasting? N Glucose 98 mg/dL 65-110 [facility] ([facility]) Is patient fasting? N BUN 12 mg/dL 7-21 [facility] Is patient fasting? N Creatinine 0.7 mg/dL 0.7-1.5 [facility] ([facility]) Is patient fasting? N Total Protein 7.5 g/dL 6.3-8.2 [facility] ([facility]) Is patient fasting? N Albumin 4.9 g/dL 3.9-5.0 [facility] ([facility]) Is patient fasting? N BUN/Creat 17 8-27 [facility] ([facility]) Is patient fasting? N A/G Ratio 1.9 0.8-2.0 [facility] ([facility]) Is patient fasting? N Globulin 2.6 GM/DL 2.4-3.2 [facility] ([facility]) Is patient fasting? N Total Bili Laboratory test result 0.2-1.3 ME [facility] ([facility]) Is patient fasting? N Calcium 9.6 mg/dL 8.4-10.2 [facility] ([facility]) Is patient fasting? N Alkaline Phos 52 U/L 38-126 [facility] ([facility]) Is patient fasting? N SGPT/Alt 30 U/L 7-56 [facility] ([facility]) Is patient fasting? N Sgot/Ast 20 U/L 5-40 [facility] ([facility]) Is patient fasting? N Anion Gap 9.0 mmol/L 8.0-16.0 [facility] ([facility]) Is patient fasting? N Non-Aa GFR Laboratory test result [facility] ([facility]) Is patient fasting? N Afr Amer GFR Laboratory test result [facility] ([facility]) Is patient fasting? N Age 35 yrs [facility] ([facility]) Is patient fasting? N ID Date Data Source [id number] 05/23/2020 08:20:00 AM EST [facility] ([facility]) Name Value Range Interpretation Code Description Data Sun rce(s) Supporting Document(s) CBC W/Automated Diff Laboratory test result [facility] ([facility]) Is patient fasting? N WBC 7.4 10^3/uL 4.2-11.0 [facility] ([facility]) Is patient fasting? N RBC 4.75 10^6/uL 4.20-5.40 [facility] ([facility]) Is patient fasting? N Hemoglobin 15.0 g/dL 12.0-16.0 [facility] ([facility]) Is patient fasting? N Hematocrit 43.7 % 37.0-47.0 [facility] ([facility]) Is patient fasting? N MCH 31.6 pg 27.0-34.0 [facility] ([facility]) Is patient fasting? N MCHC 34.3 g/dL 31.0-36.0 [facility] ([facility]) Is patient fasting? N MCV 92.0 fL 81.0-101 [facility] ([facility]) Is patient fasting? N RDW 12.9 % 11.5-14.5 [facility] ([facility]) Is patient fasting? N Platelets 235 10^3/uL 150-450 [facility] ([facility]) Is patient fasting? N MPV 9.6 fL 7.4-10.4 [facility] ([facility]) Is patient fasting? N Neut 60.9 % 37.0-80.0 [facility] ([facility]) Is patient fasting? N [place] 7.3 % 3.0-8.0 [facility] ([facility]) Is patient fasting? N Lymph 29.5 % 25.0-40.0 [facility] ([facility]) Is patient fasting? N Baso 0.3 % 0.0-2.5 [facility] ([facility]) Is patient fasting? N %Ig 0.8 % 0.0-0.0 Above high normal [facility] ([facility]) Is patient fasting? N Eos 1.2 % 0.0-7.0 [facility] ([facility]) Is patient fasting? N %NRBC 0.0 % 0.0-0.0 [facility] ([facility]) Is patient fasting? N #Lymph 2.19 10^3/uL 0.60-3.40 [facility] ([facility]) Is patient fasting? N #Neut 4.52 10^3/uL 2.00-6.90 [facility] ([facility]) Is patient fasting? N #[place] 0.54 10^3/uL 0.00-0.90 [facility] ([facility]) Is patient fasting? N #Eos 0.09 10^3/uL 0.00-0.70 [facility] ([facility]) Is patient fasting? N #Baso 0.02 10^3/uL 0.00-0.20 [facility] ([facility]) Is patient fasting? N #NRBC 0.00 10^3/uL 0.00-0.00 [facility] ([facility]) Is patient fasting? N Manual Diff Laboratory test result M [facility] ([facility]) Is patient fasting? N #Ig 0.06 10^3/uL 0.00-0.10 [facility] ([facility]) Is patient fasting? N RBC Morph Laboratory test result [facility] ([facility]) Is patient fasting? N ID Date Data Source [id number] 05/23/2020 02:06:00 PM EST [facility] Name Value Range Interpretation Code Description Data Sun rce(s) Supporting Document(s) Calcidiol [Moles/volume] in Serum or Plasma 20 NG/ML [facility] VITAMIN-D(2 5HYDROXY) Deficiency: <=20 ng/ml Insufficiency: 21-29 ng/ml Preferred level: => 30 ng/ml ID Date Data Source [id number] 05/23/2020 02:05:00 PM [facility] Name Value Range Interpretation Code Description Data Sun rce(s) Supporting Document(s) Thyrotropin [Units/volume] in Serum or Plasma by Detec tion limit <= 0.05 mIU/L 1.72 uIU/mL 0.47 - 5.01 [facility] ID Date Data Source [id number] 05/23/2020 01:54:00 PM [facility] Name Value Range Interpretation Code Description Data Sun rce(s) Supporting Document(s) CVE PANEL [facility] al LIPID PANEL Cholesterol [Mass/volume] in Serum or Plasma 183 MG/DL 131 - 200 [facility] Deprecated Triglyceride [Mass/volume] in Serum or Plasma 163 MG/DL 3 5 - 160 H [facility] HDL 44 MG/DL 29 - 86 [facility] Cholesterol in LDL [Mass/volume] in Serum or Plasma by Direc t assay 122 mg/dL 65 - 175 [facility] Cholesterol.total/Cholesterol in HDL [Mass Ratio] in Serum o r Plasma 4.2 3.2 - 4.4 [facility] LDL/HDL 2.77 1.47 - 3.22 [facility] CVE RISK CHOL/HDL LDL/HDLMEN: 1/2 AVERAGE 3.43 1.00 AVERAGE 4.97 3.55 2X AVERAGE 9.55 6.25 3X AVERAGE 23.99 7.99WOMEN: 1/2 AVERAGE 3.27 1.47 AVERAGE 4.44 3.22 2X AVERAGE 7.05 5.03 3X AVERAGE 11.04 6.14 ID Date Data Source [id number] 05/23/2020 01:52:00 PM [facility] Name Value Range Interpretation Code Description Data Sun rce(s) Supporting Document(s) Amylase [Enzymatic activity/volume] in Serum or Plasma 72 U/L 30 - 110 [facility] ID Date Data Source [id number] 05/23/2020 01:52:00 PM [facility] Name Value Range Interpretation Code Description Data Sun rce(s) Supporting Document(s) Lipase [Enzymatic activity/volume] in Serum or Plasma 42 U/L 13 - 60 [facility] ID Date Data Source [id number] 05/23/2020 01:52:00 PM [facility] Name Value Range Interpretation Code Description Data Sun rce(s) Supporting Document(s) COMPREHENSIVE METABOLIC PANEL [facility] COMPREHENSIVE METABOLIC PANEL Sodium [Moles/volume] in Serum or Plasma 140 mEq/L 134 - 153 [facility] Potassium [Moles/volume] in Serum or Plasma 4.5 mEq/L 3.6 - 5.0 [facility] Chloride [Moles/volume] in Serum or Plasma 102 mEq/L 98 - 107 [facility] Carbon dioxide, total [Moles/volume] in Serum or Plasma 29 MEQ/L 22 - 30 [facility] Glucose [Mass/volume] in Serum or Plasma 98 MG/DL 65 - 110 [facility] BUN 12 MG/DL 7 - 21 [facility] Creatinine [Mass/volume] in Serum or Plasma 0.7 MG/DL 0.7 - 1.5 [facility] BUN/CREAT 17 8 - 27 [facility] al Protein [Mass/volume] in Serum or Plasma 7.5 G/DL 6.3 - 8.2 [facility] Albumin [Mass/volume] in Serum or Plasma 4.9 G/DL 3.9 - 5.0 [facility] Globulin [Mass/volume] in Serum by calculation 2.6 GM/DL 2.4 - 3.2 [facility] A/G RATIO 1.9 0.8 - 2.0 [facility] Calcium [Mass/volume] in Serum or Plasma 9.6 MG/DL 8.4 - 10.2 [facility] Bilirubin.total [Mass/volume] in Serum or Plasma <0.7 MG/DL 0.2 - 1.3 [facility] Alkaline phosphatase [Enzymatic activity/volume] in Serum or Plasma 52 U/L 38 - 126 [facility] Aspartate aminotransferase [Enzymatic activity/volume] in Serum or Plasma 20 U/L 5 - 40 [facility] Alanine aminotransferase [Enzymatic activity/volume] in Seru m or Plasma 30 U/L 7 - 56 [facility] Anion gap 3 in Serum or Plasma 9.0 mmol/L 8.0 - 16.0 [facility] AGE 35 yrs [facility] NON-AA GFR >60 mL/min [facility] ital AFR AMER GFR >60 mL/min [facility] Ho spital Male GFR In terprentation 20-49 yrs >60 mL/min Normal 50-59 yrs >56 mL/min Normal 60-69 yrs >49 mL/min Normal 70-79yrs >42 mL/min Normal 80 and above >35 mL/min Normal Female GFR Interpretation 20-39 yrs >60 mL/min Normal 40-49 yrs >58 mL/min Normal 50-59 yrs >51 mL/min Normal 60-69 yrs >45 mL/min Normal 70-79 yrs >39 mL/min Normal 80 and above >32 mL/min Normal ID Date Data Source [id number] 05/23/2020 01:29:00 PM [facility] Name Value Range Interpretation Code Description Data [facility] rce(s) Supporting Document(s) Hemoglobin A1c/Hemoglobin.total in Blood 4.5 % 4.4 - 6.1 [facility] {A1]{HB] ID Date Data Source [id number] 05/23/2020 01:25:00 PM [facility] Name Value Range Interpretation Code Description Data Sun rce(s) Supporting Document(s) CBC W/AUTOMATED DIFF [facility] COMPLETE BLOOD COUNT Leukocytes [#/volume] in Blood by Automated count 7.4 10^3/uL 4.2 - 1 1.0 [facility] Erythrocytes [#/volume] in Blood by Automated count 4.75 10^6/uL 4. 20 - 5.40 [facility] Hemoglobin [Mass/volume] in Blood 15.0 g/dL 12.0 - 16.0 [facility] Hematocrit [Volume Fraction] of Blood by Automated count 43.7 % 3 7.0 - 47.0 [facility] Erythrocyte mean corpuscular volume [Entitic volume] by Auto mated count 92.0 fL 81.0 - 101 [facility] Erythrocyte mean corpuscular hemoglobin [Entitic mass] by Automated count 31.6 pg 27.0 - 34.0 [facility] Erythrocyte mean corpuscular hemoglobin concentration [Mass/volume] by Automated count 34.3 g/dL 31.0 - 36.0 [facility] Erythrocyte distribution width [Ratio] by Automated count 12.9 % 11.5 - 14.5 [facility] Platelets [#/volume] in Blood by Automated count 235 10^3/uL 150 - 45 0 [facility] Platelet mean volume [Entitic volume] in Blood by Automated count 9.6 fL 7.4 - 10.4 [facility] Neutrophils/100 leukocytes in Blood by Automated count 60.9 % 37. 0 - 80.0 [facility] Lymphocytes/100 leukocytes in Blood by Manual count 29.5 % 25.0 - 40.0 [facility] Monocytes/100 leukocytes in Blood by Automated count 7.3 % 3.0 - 8.0 [facility] Eosinophils/100 leukocytes in Blood by Automated count 1.2 % 0.0 - 7.0 [facility] Basophils/100 leukocytes in Blood by Automated count 0.3 % 0.0 - 2.5 [facility] %IG 0.8 % 0.0 - 0.0 H [facility] al %NRBC 0.0 % 0.0 - 0.0 [facility] al Neutrophils [#/volume] in Blood by Automated count 4.52 10^3/uL 2.00 - 6.90 [facility] Lymphocytes [#/volume] in Blood by Automated count 2.19 10^3/uL 0.60 - 3.40 [facility] Monocytes [#/volume] in Blood by Automated count 0.54 10^3/uL 0.00 - 0.90 [facility] Eosinophils [#/volume] in Blood by Automated count 0.09 10^3/uL 0.00 - 0.70 [facility] Basophils [#/volume] in Blood by Automated count 0.02 10^3/uL 0.00 - 0.20 [facility] #IG 0.06 10^3/uL 0.00 - 0.10 [facility] ospital #NRBC 0.00 10^3/uL 0.00 - 0.00 [facility] ospital MANUAL DIFF NOT INDICATED [facility] RBC MORPH NOT INDICATED [facility] spital ID Date Data Source [id number] 05/17/2020 01:54:00 PM EST [facility] Name Value Range Interpretation Code Description Data Sun rce(s) Supporting Document(s) Cancer Ag 125 [Units/volume] in Serum or Plasma 7.0 U/mL 0.0-38.1 [facility] ([facility]) [employer] Electrochemiluminescen ce Immunoassay (ECLIA) Values obtained with different assay methods or kits cannot be used interchangeably. Results cannot be interpreted as absolute evidence of the presence or absence of malignant disease. ID Date Data Source [id number] 05/19/2020 03:08:00 PM EST [facility] Name Value Range Interpretation Code Description Data Sun rce(s) Supporting Document(s) Cancer Ag 125 [Units/volume] in Serum or Plasma 7.0 U/mL 0.0-38.1 [facility] [employer] Electrochemiluminescen ce Immunoassay (ECLIA)Values obtained with different assay methods or kits cannot beused interchangeably. Results cannot be interpreted as absoluteevidence of the presence or absence of malignant disease. ID Date Data Source [id number] 03/27/2020 11:24:00 AM EDT [facility] [address] [place] [address] PHONE: [phone] FAX: [phone] Name .................. : NOE MANCIA Acct Number.................. : [id number] ROOM. ................. : TR-1A MR Number ................... : [id number] Stay type ............. : E/R Discharge Date......... ... : 03/26/20 Admit Date ......... : 03/26/20 Admit Phys .................... : AMERNATH L Date of ....... : 1985 Family Phys ................... : ANANT KILGORE Phone .................. : [phone] Age ................................ : 35 Film# .................. .:[id number] Sex ................................. : F Unsigned transcriptions are preliminary reports and do not represent a medical or legal document CT ABD & PELVIS W/ IV ONLY [id number] COMPLETE:03/26/20 18:02 [facility] [id number] Reason(s): Pending CMP and HCG: L abd and LLQ pain with N/V/D. CT OF THE ABDOMEN AND PELVIS WITH CONTRAST: HISTORY: 35-year-old female with left lower quadrant abdominal pain with nausea, vomiting and diarrhea. COMPARISON: None. FINDINGS: The lung bases are clear. The liver demonstrates slightly decreased parenchymal attenuation, suggestive of fatty infiltration. The gallbladder is decompressed. The pancreas, adrenal glands and kidneys are within normal limits. There are multiple bilateral renal cysts, measuring up to 1 cm. There are too small to characterize hypodense structures bilaterally as well. Nonobstructing calculi are seen within the right kidney, measuring up to 4 mm. No hydronephrosis. No abdominal aortic aneurysm. No significant colonic diverticular changes or inflammatory changes associated with the colon. No evidence of bowel obstruction or free air. The uterus contains a small amount of fluid, likely physiologic for a patient of this age. There is a 5.0 cm cyst in the right adnexa. No abnormal abdominal or pelvic free fluid. Page 1 of 2 [facility] [address] [address] PHONE: [phone] FAX: [phone] Name .................. : NOE MANCIA Acct Number.................. : [id number] ROOM. ................. : [facility] MR Number ................... : [id number] Stay type ............. : E/R Discharge Date......... ... : 03/26/20 Admit Date ......... : 03/26/20 Admit Phys .................... : PEDRO LUIS Hobson Date of ....... : 1985 Family Phys ................... : ANANT KILGORE Phone .................. : [phone] Age ................................ : 35 Film# .................. .:[id number] Sex ................................. : F Unsigned transcriptions are preliminary reports and do not represent a medical or legal document CT ABD & PELVIS W/ IV ONLY [id number] COMPLETE:03/26/20 18:02 [facility] [address] Reason(s): Pending CMP and HCG: L abd and LLQ pain with N/V/D. The urinary bladder is unremarkable. No acute osseous abnormalities are identified. IMPRESSION: 5.0 cm cyst in the right adnexa, likely ovarian. Follow up ultrasound is recommended in 2-3 menstrual cycles. No acute inflammatory change s are seen in the abdomen or pelvis otherwise. While performing the above CT examination, radiation dose reduction was accomplished utilizing automated exposure control, adjusting of the mA and kV based on the patient's body size and/or the use of imperative reconstructive techniques. CT dose: 888.7 mGycm Contrast agent in mL: 75 Isovue 370 Method of administration: Intravenous Electronically Reviewed and Signed By Alexandra Abdi MD , 03/27/20 11:24, KALYN Transcribe Initials: VANNESA , Transcribe Date: 03/26/20 21:06, Dictation Date: Copy for: [facility] via fax Copy for: EMERGENCY DEPT via modem Copy for: 710 MED REC DISCHARGED Page 2 of 2 Name Value Range Interpretation Code Description Data Sun rce(s) Supporting Document(s) ID Date Data Source [id number] 03/26/2020 03:58:00 PM EDT [facility] 1 OrderSheet [facility] Emergency Department [address] [place] [address] Phone #: ext- [phone] 03/26/2020 15:43 Patient: GAVINO LIU Sex: F : 1985 Age: 35yWEIGHT:79.3 kg (S) HEIGHT:64 inches (S) BMI:30.0ALLERGIES: Pertussis VaccinesCHIEF COMPLAINT: abdominal painDIAGNOSIS: Abdominal pain, Sinusitis, Cyst of ovaryLAB ORDERSOrder Description Priority Entered Acknowledged InitialedUrinalysis (Clean STAT 16:03 03/26/2020 16:03 Fuad Cancino) Tessy Cancino R.N.; R.N. Verbal order per; Amrik AYALABC w Diff STAT 16:21 03/26/2020 16:27 Tessy Cancino R.N. P.A.-C;CMP STAT 16:21 03/26/2020 16:27 Tessy Cancino R.N. P.A.-C;Lipase STAT 16:21 03/26/2020 16:27 Tessy Cancino R.N. P.A.-C;Lactic Acid STAT 16:21 03/26/2020 16:27 Tessy Cancino R.N. P.A.-C;Beta-HCG, Qual STAT 16:21 03/26/2020 16:27 Gemini Cancino R.N. P.A.-C;Culture, Urine STAT 17:44 03/26/2020 17:56 Tessy Cancino(Urine, Clean Amrik Vazquez R.N.Catch) P.A.-C;DIAGNOSTIC STUDY ORDERSOrder Description Priority Entered Acknowledged InitialedCT Abd PEL W/ IV STAT 16:47 03/26/2020 17:00 Tessy CancinoContrast Only Amrik Vazquez R.N.(Oxygen?(No)) P.A.-C;(IV?(Yes)) Reason for Study: Pending CMP and HCG: L abd and LLQ pain with N/V/D. 2 OrderSheet [facility] Emergency Department [address] [place] [address] Phone #: ext- [phone] 03/26/2020 15:43 Patient: GAVINO LIU Sex: F : 1985 Age: 35yMEDICATION/IV/DRIP/FLUID ORDERSOrder Description Priority Entered Acknowledged InitialedNS IV : Bolus 500 16:21 03/26/2020 16:35 Yanelis Cancino, then 100 mL/hr Amrik Vazquez R.N. P.A.-C;Zofran IVP 4 mg 16:21 03/26/2020 16:36 Tessy Cancino llmindy Borrego P.A.- C;Tylenol 1 g PO X1 16:21 03/26/2020 16:37 Mirtha Cancinoose: 1000 mg Amrik Vazquez R.N.(NOW x1) P.A.-C;Benadryl IVP 25 mg 16:21 03/26/2020 16:38 Tessy Cancino R.N. P.A.-C;GENERAL ORDERSOrder Description Priority Entered Acknowledged InitialedNPO 16:21 03/26/2020 16:27 Tessy Cancino R.N. P.A.-C;Saline Lock 16:03/26/2020 16:27 Tessy Cancino R.N. P.A.-C;[Electronically signed by Tessy Cancino R.N. (19:09 03/26/2020)][Electronically signed by Amrik VazquezA.-C (21:51 03/26/2020)][Electronically locked by Tessy Cancino R.N. (19:09 03/26/2020)] Name Value Range Interpretation Code Description Data Sun rce(s) Supporting Document(s) ID Date Data Source [id number] 03/26/2020 03:58:00 PM EDT [facility] 1 Medication Reconciliation Report [facility] Emergency Department [address] [place] [address] Phone #: [phone]- [phone] 03/26/2020 15:43 Patient: GAVINO LIU Sex: F : 1985 Age: 35yWeight: 79.3 kgHeight/Length: 64 in.BMI: 30.0ALLERGIES: Pertussis VaccinesThe patient's Home Medications are listed below:CONTINUE TAKING THE FOLLOWING MEDICATIONS: Lexapro OralThe source(s) of the original Home Medication information:Not obtained.The following Medications were given to the patient in the Emergency Department:NS [IV] IV Fluids bolus 500 mL over 1 hour(s), then 100 mL/hr, administered: 03/26/2020 4:35:00 PMZofran [IVP] IVP 4 mg, administered: 03/26/2020 4:36:00 PMTylenol [PO] PO 1000 mg, administered: 03/26/2020 4:37:00 PMBenadryl [IVP] IVP 25 mg, administered: 03/26/2020 4:38:00 PMThe following Medications were prescribed to the patient:Augmentin 875 mg-125 mg tablet Take 1 tablet twice a day for 7 days -- Dispense 14 tablet. Refills: 0.Substitution permitted.Pharmacy - [facility] [id number] [place] [address]. Phone: .Zyrtec 10 mg tablet Take 1 tablet once a day for 15 days -- Dispense 15 tablet. Refills: 0. Substitutionpermitted.Pharmacy - [facility] [phone] [place] [address]. .Flonase Allergy Relief 50 mcg/actuation nasal spray,suspension [place] 1-2 spray once a day for 4 days-- Dispense 1 nasal inhaler. Refills: 0. Substitution permitted. 2 Medication Reconciliation Report [facility] Emergency Department [address] [place] [address] Phone #: ext- [phone] 03/26/2020 15:43 Patient: GAVINO LIU Sex: F : 1985 Age: 35yPharmacy - [facility] [phone] [place] [address]. .promethazine 25 mg tablet Take 1 tablet three times a day for 3 days -- Dispense 9 tablet. Refills: 0.Substitution permitted.Pharmacy - [facility] [phone] [place] [address]. . -- Amrik Vazquez P.A.-C Name Value Range Interpretation Code Description Data Sun rce(s) Supporting Document(s) ID Date Data Source [id number] 03/26/2020 03:58:00 PM EDT [facility] 1 Medication Administration Record [facility] Emergency Department [address] [place] [address] Phone #: ext- [phone] 03/26/2020 15:43 Patient: GAVINO LIU Sex: F : 1985 Age: 35yWeight: 79.3 kgHeight/Length: 64 inBMI: 30ALLERGIES: Pertussis Vaccines Date/Time Medication Administered Medication OrderedStart NS [IV] NS IV : Bolus 500 mL, then 02589:35 03/26/2020 Dose: IV Fluids mL/hrTessy Cancino R.NAaron Rate: 100 mL/hr over 4 hour(s)---- Bolus: 500 mL over 1 hour(s)Stop Dispensed: 1000 mL bag19:08 03/26/2020 Site: #1 right forearmTessy Cancino RAaronNAaronGiven ZOFRAN [IVP] (ONDANSETRON HCL) Zofran IVP 4 mg16:36 03/26/2020 Dose: 4 mg IVPRoTessy rangel R.N. Site: #1 right forearmGiven TYLENOL [PO] (APAP) Tylenol 1 g PO X1 dose: 1000 mg16:37 03/26/2020 Dose: 1000 mg Tablets PO (NOW x1)Tessy Cancino R.N.Given BENADRYL [IVP] (DIPHENHYDRAMINE Benadryl IVP 25 mg16:38 03/26/2020 HCL)Tessy Cancino R.N. Dose: 25 mg IVP Site: #1 right forearm Name Value Range Interpretation Code Description Data Sun rce(s) Supporting Document(s) ID Date Data Source [id number] 03/26/2020 03:58:00 PM EDT [facility] 1 General Instructions [facility] Emergency Department [address] [place] [address] Phone #: ext- [phone] 03/26/2020 15:43 Patient: GAVINO LIU Sex: F : 1985 Age: 35yAcute left lower quadrant abdominal pain of unknown cause.Single simple right ovarian cyst.Acute maxillary, ethmoidal and frontal sinusitis.INSTRUCTIONSTake Tylenol (Acetaminophen) or Motrin (Ibuprofen) as needed for fever control. Take medicationaccording to label instructions. Do not work for two days.Drink plenty of fluids. No dietary restrictions.(Recommend to utilize OTC Motrin and Tylenol to control inflammation and pain management.Recommend to follow the instructions on the bottle and not to exceed.).Your Current Medications: Your current home medications have been reviewed.CONTINUE TAKING THE FOLLOWING MEDICATIONS:Lexapro Oral.Prescription Medications:Augmentin 875 mg-125 mg tablet Take 1 tablet twice a day for 7 days -- Dispense 14 tablet. Refills: 0.Substitution permitted.Pharmacy - [facility] [id number] [place] [address]. [phone] .Zyrtec 10 mg tablet Take 1 tablet once a day for 15 days -- Dispense 15 tablet. Refills: 0. Substitutionpermitted.Pharmacy - [facility] [id number] [place] [address]. .Flonase Allergy Relief 50 mcg/actuation nasal spray,suspension [place] 1-2 spray once a day for 4 days-- Dispense 1 nasal inhaler. Refills: 0. Substitution permitted.Pharmacy - [facility] [phone] [place] [address]. Phone: .promethazine 25 mg tablet Take 1 tablet three times a day for 3 days -- Dispense 9 tablet. Refills: 0.Substitution permitted.[facility] [phone] [place] [address]. .Follow-up: 2 General Instructions [facility] Emergency Department [address] [place] [address] Phone #: ext- [phone] 03/26/2020 15:43 [id number] Sex[facility] F : 1985 Age: 35yReturn to the emergency department as needed. Follow up with your healthcare provider in about twodays if not better. Call for an appointment. 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 Call for the next availableappointment.Understanding of the discharge instructions verbalized by patient.Follow-up with: Sam Packer MD, Gastroenterology, [id number], [facility],[address] [place] [address], [address], [place], [address] Follow up. Reason for referral: evaluation and treatment. ADDITIONAL INFORMATIONUnknown Causes of Abdominal Pain (Female)The exact cause of your belly (abdominal) pain is not clear. This does not mean that this is somethingto worry about. Everyone likes to know the exact cause of the problem. But sometimes with bellypain, there is no clear-cut cause, and this could be a good thing. The good news is that yoursymptoms can be treated, and you will feel better.Your condition does not seem serious now. But sometimes the signs of a serious problem may takemore time to appear. For this reason, it is important for you to watch for any new symptoms, 3 General Instructions [facility] Emergency Department [address] [place] [address] Phone #: ext- [phone] 03/26/2020 15:43 Patient: GAVINO LIU Sex: F : 1985 Age: 35yproblems, or worsening of your condition.Over the next few days, the abdominal pain may come and go. Or it may be constant. Other commonsymptoms can include nausea and vomiting. Sometimes it can be difficult to tell if you feel nauseous.You may just feel bad and not connect that feeling to nausea. Constipation, diarrhea, and a fever maygo along with the pain.The pain may continue even if treated correctly over the following days. Depending on how things go,sometimes the cause can become clear and may need more or different treatment. Additionalevaluations, medicines, or tests may also be needed.Home careYour healthcare provider may prescribe medicine for pain, symptoms, or an infection. Follow thehealthcare provider's instructions for taking these medicines.General care Rest as much as you can until your next exam. No strenuous activities. Try to find positions that ease discomfort. A small pillow placed on the abdomen may help relieve pain. Something warm on your abdomen (such as a heating pad) may help, but be careful not to burn yourself.Diet Don't force yourself to eat, especially if having cramps, vomiting, or diarrhea. Water is important so you don't get dehydrated. Soup may also be good. Sports drinks may also help, especially if they are not too acidic. Don't drink sugary drinks as this can make things worse. Take liquids in small amounts. Don't guzzle them. Caffeine sometimes makes the pain and cramping worse. Don't take dairy products if you have vomiting or diarrhea. Don't eat large amounts at a time. Wait a few minutes between bites. Eat a diet low in fiber (called a low-residue diet). Foods allowed include refined breads, white rice, fruit and vegetable juices without pulp, tender meats. These foods will pass more easily through the intestine. Don 't have whole-grain foods, whole fruits and vegetables, meats, seeds and nuts, fried or fatty foods, dairy, alcohol and spicy foods until your symptoms go away. 4 General Instructions [facility] Emergency Department [address] [place] [address] Phone #: ext- [phone] 03/26/2020 15:43 Patient: GAVINO LIU Sex: F : 1985 Age: 35yFollow-up careFollow up with your healthcare provider, or as advised, if your pain does not begin to improve in thenext 24 hours.Call [phone] [phone] if any of these occur: Trouble breathing Confusion Fainting or loss of consciousness Rapid heart rate SeizureWhen to seek medical adviceCall your healthcare provider right away if any of these occur: Pain gets worse or moves to the right lower abdomen New or worsening vomiting or diarrhea Swelling of the abdomen Unable to pass stool for more than 3 days Fever of 100.4F (38C) or higher, or as directed by your healthcare provider. Blood in vomit or bowel movements (dark red or black color) Yellow color of eyes and skin (jaundice) Weakness, dizziness Chest, arm, back, neck, or jaw pain Unexpected vaginal bleeding or missed period Can't keep down liquids or water and you are getting dehydrated [id number] [employer]. [address] [place] [address], [place] [address]. All rights reserved. This information is not intended as asubstitute for professional medical care. Always follow your healthcare professional's instructions.Ovarian Cysts 5 General Instructions [facility] Emergency Department [address] [place] [address] Phone #: ext- [phone] 03/26/2020 15:43 Patient: GAVINO LIU Sex: F : 1985 Age: 35yThe ovaries are two small organs located on each side of a woman's uterus (womb). They are part ofthe female reproductive system. Ovarian cysts are sacs filled with fluid or tissue that form on or insidethe ovaries.Ovarian cysts are common in women, especially during childbearing years. There are different typesof cysts. Most are harmless (benign) and go away on their own. They often cause no symptoms. Ifsymptoms do occur, they can include mild pain or pressure in the lower belly (abdomen).Cysts that are large or break (rupture) may cause more severe pain and symptoms. In these cases,you may need hospital care or treatment such as surgery. You may need more extensive treatment ifa cyst causes an ovary to twist (called torsion) or if your doctor suspects your cyst is cancerous. Keepin mind that most cysts are not cancerous, however.General care To help relieve pain, your healthcare provider may recommend using dcrl-xfs-upuojpu pain medicine. If needed, your provide may prescribe stronger pain medicine. Depending on the type of cyst you have, your healthcare provider may advise taking control pills. These help shrink cysts in certain cases. They may also help prevent new cysts from forming. Be sure to take these medicines as directed if they are prescribed. Your healthcare provider may advise you to watch your symptoms over time to see if they go away or worsen. Regular ultrasound tests may also be advised. These can help check if a cyst goes away or grows in size.Follow-up care 6 General Instructions [facility] Emergency Department [address] [place] [address] Phone #: ext- [phone] 03/26/2020 15:43 -------- Patient: GAVINO LIU Sex: F : 1985 Age: 35yFollow up with your healthcare provider, or as advised.When to seek medical adviceCall your healthcare provider right away if any of these occur: Pain worsens or fails to get better with home treatment Fever of 100.4F (38C) or higher (or other fever amount directed by your healthcare provider) Nausea and vomiting Weakness, dizziness, or fainting Abnormal vaginal bleeding 4395-0803 [employer]. [address] [place] [address]. All rights reserved. This information is not intended as asubstitute for professional medical care. Always follow your healthcare professional's instructions.Sinusitis (Antibiotic Treatment)The sinuses are air-filled spaces within the bones of the face. They connect to the inside of thenose. Sinusitis is an inflammation of the tissue that lines the sinuses. Sinusitis can occur during acold. It can also happen due to allergies to pollens and other particles in the air. Sinusitis can causesymptoms of sinus congestion and a feeling of fullness. A sinus infection causes fever, headache,and facial pain. There is often green or yellow fluid draining from the nose or into the back of the 7 General Instructions [facility] Emergency Department [address] [place] [address] Phone #: ext- [phone] 03/26/2020 15:43 Patient: GAVINO LIU Sex: F : 1985 Age: 35ythroat (post-nasal drip). You have been given antibiotics to treat this condition.Home care Take the full course of antibiotics as instructed. Do not stop taking them, even when you feel better. Drink plenty of water, hot tea, and other liquids. This may help thin nasal mucus. It also may help your sinuses drain fluids. Heat may help soothe painful areas of your face. Use a towel soaked in hot water. Or, dredge captain the shower and direct the warm spray onto your face. Using a vaporizer along with a menthol rub at night may also help soothe symptoms. An expectorant with guaifenesin may help thin nasal mucus and help your sinuses drain fluids. You can use an lwoy-uuf-swwgide decongestant, unless a similar medicine was prescribed to you. Nasal sprays work the fastest. Use one that contains phenylephrine or oxymetazoline. First blow your nose gently. Then use the spray. Do not use these medicines more often than directed on the label. If you do, your symptoms may get worse. You may also take pills that contain pseudoephedrine. Don't use products that combine multiple medicines. This is because side effects may be increased. Read labels. You can also ask the pharmacist for help. (People with high blood pressure should not use decongestants. They can raise blood pressure.) Tbsr-vtr-psxxsig antihistamines may help if allergies contributed to your sinusitis. Do not use nasal rinses or irrigation during an acute sinus infection, unless your healthcare provider tells you to. Rinsing may spread the infection to other areas in your sinuses. Use acetaminophen or ibuprofen to control pain, unless another pain medicine was prescribed to you. If you have chronic liver or kidney disease or ever had a stomach ulcer, talk with your healthcare provider before using these medicines. (Aspirin should never be taken by anyone under age 18 who is ill with a fever. It may cause severe liver damage.) Don't smoke. This can make symptoms worse.Follow-up careFollow up with your healthcare provider or our staff if you are not better in 1 week.When to seek medical adviceCall your healthcare provider if any of these occur: 8 General Instructions [facility] Emergency Department [address] [place] [address] Phone #: ext- [phone] 03/26/2020 15:43 Patient: GAVINO LIU Sex: F : 1985 Age: 35y Facial pain or headache that gets worse Stiff neck Unusual drowsiness or confusion Swelling of your forehead or eyelids Vision problems, such as blurred or double vision Fever of 100.4F (38C) or higher, or as directed by your healthcare provider Seizure Breathing problems Symptoms don't go away in 10 daysPreventionHere are steps you can take to help prevent an infection: Keep good hand washing habits. Don't have close contact with people who have sore throats, colds, or other upper respiratory infections. Don't smoke, and stay away from secondhand smoke. Stay up to date with of your vaccines. 5766-8181 [employer]. [address] [place] [address]. All rights reserved. This information is not intended as asubstitute for professional medical care. Always follow your healthcare professional's instructions. You have been given the following additional information: Abdominal Pain, Unknown Cause, (Female) Ovarian Cyst Sinusitis (Antibiotic Treatment) Do not work for two days.(Electronically signed by Amrik Vazquez P.A.-C 03/26/2020 21:51) 9 General Instructions [facility] Emergency Department [address] [place] [address] Phone #: ext- [phone] 03/26/2020 15:43 Patient: GAVINO LIU Sex: F : 1985 Age: 35y Name Value Range Interpretation Code Description Data Sun rce(s) Supporting Document(s) ID Date Data Source [id number] 03/26/2020 03:58:00 PM EDT [facility] 1 Clinical Report - Nurses [facility] Emergency Department [address] [place] [address] Phone #: ext- [phone] 03/26/2020 15:43 Patient: GAVINO LIU Sex: F : 1985 Age: 35yTRIAGEArrived by private vehicle. ( abd pain ongoing for 1 year and saw director community health nursing had ovary and fallopian tubesremoved november 12 and pain came back 2 weeks ago).Acuity: LEVEL 3.Chief Complaint: ABDOMINAL PAIN, NAUSEA, VOMITING and DIARRHEA.Alert. No acute distress.Onset. (2 weeks). She has had nausea (started yesterday). She has had vomiting. She has haddiarrhea (3 days). She has had abdominal pain. The pain is described as located in the LUQ, left side ofthe abdomen and LLQ. The pain is associated with nausea, vomiting and diarrhea.Treatment REAL ESTATE LEGAL ASSISTANT:None.SEPSIS SCREEN: SIRS Screen negative. Sepsis Screen negative. No suspected or confirmed signs ofinfection present. --15:51 03/26/20 Tessy Cancino R.N.15:46 03/26/20. BP: 117/83. MAP: 94. HR: 101. RR: 18. O2 saturation: 100%. Temp: 97 F (oral). Painlevel now: 01/16. --15:51 03/26/20 Tessy Cancino R.N.Weight: 79.3 kg stated. Height/Length: 64 inches Per Patient. BMI: 30. --15:45 03/26/20 Tessy Cancino R.N.MedicationsLexapro Oral. --15:51 03/26/20 Tessy Cancino R.N.AllergiesPertussis Vaccines. --15:51 03/26/20 Tessy Cancino R.N.PROBLEMS:Nephrolithiasis.Anxiety Reaction. --15:52 03/26/20 Tessy Cancino R.N.ADDITIONAL SURGERIES:Ablation .Lithotripsy.Tubal Ligation. --15:52 03/26/20 Tessy Cancino R.N.HistoryPAST MEDICAL HX: Immunizations: up-to-date. Last normal menstrual period- Mar 1013. ( headachefor 1 week behind eye). 2 Clinical Report - Nurses [facility] Emergency [facility] [address] [facility] [place] [address] Phone #: ext- [phone] 03/26/2020 15:43 Patient: GAVINO LIU Sex: F : 1985 Age: 35y SOCIAL HX: Smoker- current status unknown (quit 2012). No alcohol use or drug use. No recent travel. No known contact with a sick individual. She was offered HIV testing but declined and hepatitis C testing but declined. She has not traveled outside the [place] Infectious disease exposure: No infectious disease exposure. Patient is not a known carrier of tuberculosis, hepatitis, HIV, MRSA or VRE. Patient is not a known carrier of CRE. SELF HARM ASSESSMENT: Self harm assessment was performed. The patient answered "no" to the question(s) "Have you recently felt down, depressed, or hopeless?", "Do you have thoughts of harming or killing yourself?", "Do you have a plan for harming or killing yourself?", "Have you recently had thoughts about harming or killing others?", "Do you have any dangerous items in your possession?", "Have you noticed less interest or pleasure in doing things?", "Are you here because you tried to hurt yourself?" and "Have you ever tried to hurt yourself before today?". ABUSE ASSESSMENT: Abuse assessment. Abuse denied. No suspicion of abuse. No report of abuse. NUTRITIONAL RISK ASSESSMENT: The nutritional risk assessment revealed no deficiencies. FUNCTIONAL ASSESSMENT: Functional assessment: no impairments noted. LEARNING NEEDS ASSESSMENT: The learning needs assessment revealed no bar riers. FALL RISK ASSESSMENT: Fall risk assessment completed. No risk factors identified. SKIN INTEGRITY ASSESSMENT: Skin integrity risk assessment completed. No skin integrity risk identified. --15:51 03/26/20 Tessy Cancino R.N. Interventions To treatment room. --15:51 03/26/20 Tessy Cancino R.N.PHYSICAL ASSESSMENTGENERAL / NEURO / PSYCH: Alert. Oriented X 4.HEENT: Mucous membranes are pink.RESPIRATORY: Respirations not labored. Breath sounds within normal limits.CVS: Normal sinus rhythm noted. Capillary refill less than 2 seconds.GI / : The patient has had nausea and diarrhea. Emesis noted. Abdominal tenderness in the leftupper quadrant. Bowel sounds within normal limits.SKIN: Skin is warm and dry. --15:53 03/26/20 Tessy Cancino R.N.NURSING PROGRESS NOTESPatient gowned. Reassurance given. Two patient identifiers checked. Call light placed in reach. Siderails up x 2. Bed placed in lowest position. Brakes of bed on. Patient ready for evaluation- ED physiciandenilson ZAMBRANO notified. --15:53 03/26/20 Tessy Cancino R.N. 16:02 03/26/2020 Site #1 started via IV in the right forearm with an 20g angiocath, with aseptic technique 3 Clinical Report - Nurses [facility] Emergency Department [address] [place] [address] Phone #: ext- [phone] 03/26/2020 15:43 ----- Patient: GAVINO LIU Sex: F : 1985 Age: 35yand good blood return; two attempts. Blood drawn: rainbow set. Labeled in the presence of the patient andsent to the lab. Saline lock flushed with 10 mL saline. --16:02 03/26/20 Tessy Cancino R.N.Patient ID band checked for patient name and birthdate: patient confirmed. Instructions provided to collectclean catch urine and patient verbalized understanding. Clean catch urine collected; sample sent to lab forurinalysis. Specimen labeled in the presence of the patient. --16:02 03/26/20 Tessy Cancino R.N.16:35 03/26/2020 Started bag #1 1000 mL IV Fluids NS; bolus of 500 mL over 1 hour(s) then at 100 mL/hrover 4 hour(s) via site #1 via IV pump. Allergies verified and confirmed 5 rights. IV patency established. IVsite checked: no pain, redness, or swelling. IV flushed thoroughly pre- and post-medication administration.Information reviewed with patient including reason for taking this medication, signs of allergic reaction andprecautions. Verbalizes understanding. --16:35 03/26/20 Tessy Cancino R.N.16:36 03/26/2020 Zofran (Ondansetron HCl) IVP 4 mg given over 2 minute(s) via site #1. Allergies verifiedand confirmed 5 rights. IV patency established. IV site checked: no pain, redness, or swelling. IV flushedthoroughly pre- and post-medication administration. IVP given by RN. Information reviewed with patientincluding reason for taking this medication, signs of allergic reaction and precautions. Verbalizesunderstanding. --16:36 03/26/20 Tessy Cancino R.N.16:37 03/26/2020 Tylenol (APAP) PO Tablets 1000 mg given. Allergies verified and confirmed 5 rights.Information reviewed with patient including reason for taking this medication, signs of allergic reaction andprecautions. Verbalizes understanding. --16:37 03/26/20 Tessy Cancino R.N.16:38 03/26/2020 Benadryl (diphenhydrAMINE HCl) IVP 25 mg given over 5 minute(s) via site #1. Allergiesverified and confirmed 5 rights. IV patency established. IV site checked: no pain, redness, or swelling. IVflushed thoroughly pre- and post-medication administration. IVP given by RN. Information reviewed withpatient including reason for taking this medication, signs of allergic reaction, precautions and sedativewarning. Verbalizes understanding. --16:38 03/26/20 Tessy Cancino R.N.( lights dimmed waiting on results of blood test). --16:38 03/26/20 Tessy Cancino R.N.17:01 03/26/20. BP: 121/87. MAP: 98. HR: 88. RR: 16. O2 saturation: 99%. --17:01 03/26 [place] [facility] Tech1( pt called out and stated that he headache was worse and that she needed to void, pt in restroom atpresent and KENYA Solis advised). --17:07 03/26/20 Tessy Cancino R.N.Patient transported to CT by wheelchair with tech. --17:33 03/26/20 Tessy Cancino R.N.17:55 03/26/20. BP: 117/74. MAP: 88. HR: 72. RR: 16. O2 saturation: 100%. --17:56 03/26/20 [place] [facility] Gmxy096:45 03/26/20. Patient returned from CT by wheelchair with tech. --18:06 03/26/20 Tessy Cancino R.N. 4 Clinical Report - Nurses [facility] Emergency Department [address] [place] [address] Phone #: ext- [phone] 03/26/2020 15:43 --------- Patient: GAVINO LIU Sex: F : 1985 Age: 35y 18:23 03/26/20. Patient informed about reason for wait. Patient waiting for CT results. --18:23 03/26/20 Joao Julian R.N. 18:56 03/26/20. BP: 114/78. MAP: 90. HR: 75. RR: 16. O2 saturation: 99%. --18:56 03/26/20 [facility] TechSheryl ER Tech1 17:08 03/26/2020 Tylenol PO Response: symptoms are the same. The patient feels the same. --19:08 03/26/20 Tessy Cancino R.N. 19:00 03/26/2020 Site #1 removed upon discharge. Pressure dressing applied. --19:09 03/26/20 Tessy Cancino R.N. 19:08 03/26/2020 IV Fluids NS via IV site #1 Discontinued: discontinued upon discharge. Total amount infused: 900 mL. IV patency established. IV site checked: no pain, redness, or swelling. IV flushed thoroughly. --19:08 03/26/20 Tessy Cancino R.N.DISPOSITION / DISCHARGE 19:00 03/26/20. BP: 115/82. MAP: 93. HR: 76. RR: 19. O2 saturation: 99%. Temp: 97.4 F. Pain level now: 09/16. --19:00 03/26/20 Tessy Cancino R.N. Condition at departure: improved. No learning barriers present. Discharge instructions provided and reviewed with the patient. Reviewed medication(s) side effects, precautions, dosing and course information. Prescription(s) given to the patient and sent electronically to pharmacy. Reviewed fever care instructions. Patient verbalized understanding. Written instructions provided in Tajik. The patient was discharged home and unaccompanied at time of discharge. She left ambulatory and via private vehicle. Patient driving. --19:07 03/26/20 Tessy Cancino R.N. Departure time: 19:07 03/26/2020. --19:07 03/26/20 Tessy Cancino R.N.Locked/Released at 03/26/2020 19:09 by Tessy Cancino R.N. Name Value Range Interpretation Code Description Data Sun rce(s) Supporting Document(s) ID Date Data Source [id number] 03/26/2020 03:58:00 PM EDT [facility] 1 Clinical Report - Physicians/Mid Levels [facility] Emergency Department [address] [place] [address] Phone #: ext- [phone] 03/26/2020 15:43 Patient: GAVINO LIU Sex: F : 1985 Age: 35y Time Seen: 16:03 03/26/2020; initial patient contact. Arrived- By private vehicle.HISTORY OF PRESENT ILLNESS Chief Complaint: ABDOMINAL PAIN. It is described as located in the left abdomen and left lower quadrant. This started about 1 weeks ago and is still present. The patient has had nausea, loss of appetite, vomiting and diarrhea. (Pt sts that current abd pain started about a week go and has progressively gottne worse. 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 Sts that abd pain resovled until about a week ago. Sts has N/V/D; no blood in stool and no UTI s/s. Pt also complains of slight BABCOCK; similar to previous HAs and feels it may be sinus related. Noted slight rhinorrhea.). Similar symptoms previously. None. Recent medical care: Not recently seen/assessed.REVIEW OF SYSTEMSNo constipation, black stools, hematemesis, difficulty with urination or pain with urination. No urinaryfrequency, bloody stools, fever, headache or sore throat. No blurred vision, chest pain, difficulty breathing,cough or joint pain. No skin rash, chills or back pain. Last bowel movement: today. The patient has hadirregular periods but not had weight loss. All other systems reviewed and are negative.PAST HISTORYSee nurses notes. Problems: Nephrolithiasis. Anxiety Reaction. Additional Surgeries: Ablation . Lithotripsy. Tubal Ligation. Medications: Lexapro Oral. Allergies: 2 Clinical Report - Physicians/Mid Levels [facility] Emergency Department [address] [place] [address] Phone #: ext- [phone] 03/26/2020 15:43 Patient: GAVINO LIU [facility]#: [id number] Sex: F : 1985 Age: 35y Pertussis Vaccines.SOCIAL HISTORYNever smoker. No alcohol use or drug use.ADDITIONAL NOTESThe nursing notes have been reviewed.PHYSICAL EXAMVital Signs: 03/26/2020 16:20 HR: 80.03/26/2020 15:46 BP: 117/83. MAP: 94. HR: 101. RR: 18. O2 saturation: 100%. Temp: 97 F. Pain levelnow: 01/16. Have been reviewed. Heart rate: Recheck: 80bpm- heart rate normal. Oxygen saturationnormal.Appearance: Alert. Oriented X3. No acute distress.Eyes: Eyelids appear normal to inspection. Conjunctivae and sclerae appear normal to inspection.Corneas appear normal to inspection. Pupils equal, round and reactive to light and light. EOMs intact.Periorbital areas appear normal to inspection. Anterior chambers clear.ENT: Airway intact. Tenderness present to percussion/palpation of the sinuses: mild right and left frontaltenderness, maxillary tenderness, ethmoid tenderness. Nose normal. Nares normal. Pharynx normal.Moist mucous membranes. Uvula midline. Voice normal.Ear (right): There is dullness of the tympanic membrane and abnormal insufflation. No tenderness of theauricle, pain with movement of the auricle, lymphadenopathy, erythema of the external canal or swelling ofthe external canal. No material in the external canal. Right ear normal. Normal mastoid. No hearingdeficit. Hearing aid.Ear (left): There is dullness of the tympanic membrane and abnormal insufflation. No tenderness of theauricle, pain with movement of the auricle, lymphadenopathy, erythema of the external canal or swelling ofthe external canal. No material in the external canal. Left ear normal. Normal mastoid. No hearingdeficit. Hearing aid.Neck: Normal inspection. Neck supple.CVS: Normal heart rate and rhythm. No JVD present. Pulses normal. Capillary refill normal. Strongperipheral pulses. Heart sounds normal. Pulses: right radial 2+; left radial 2+; right dorsalis pedis 2+; leftdorsalis pedis 2+; right posterior tibial 2+; left posterior tibial 2+.Respiratory: Chest normal on inspection. No respiratory distress. Unlabored respirations. Lungs clear.Good chest movement. Breath sounds normal and equal.Abdomen: Normal inspection. Soft. Mild tenderness in the left side of the abdomen and left lowerquadrant. Bowel sounds normal. No distention.Back: Normal inspection. No CVA tenderness.Skin: Skin warm and dry.Extremities: Extremities exhibit normal ROM. No lower extremity edema. No calf tenderness. No lowerextremity edema.Neuro: Awake. Alert. Mood/affect normal. Speech normal. Cr anial nerves II through XII intact andnormal (as tested). No motor deficit. No sensory deficit. Reflexes normal. Reflex exam: right triceps2+, left triceps 2+, right biceps 2+, left biceps 2+, right brachioradialis 2+ and left brachioradialis 2+.Psych: Cognition normal. Thought process and content normal. Insight and judgement normal. 3 Clinical Report - Physicians/Mid Levels [facility] Emergency Department [address] [place] [address] Phone #: ext- [phone] 03/26/2020 15:43 [id number] Sex: F : 1985 Age: 35yLABS, X-RAYS, AND EKGCT Abdomen - Pelvis: Jin morelos Jubin - 03/26/2020 6:21:58 PM5 cm right ovarian cyst; f/u in 2-3 menstrual cycles. No acute inflammatory changes. The study was interpreted by the radiologist. Laboratory Tests: CT Abd PEL W/ IV Contrast Only: (DIAZ: 03/26/2020 16:47) ( MsgRcvd 03/26/2020 18:02) In Progress CT ABD Reason(s): Pending CMP and HCG: L abd and LLQ pain with N/V/D. TRANSPORTATION: IV? IV?(Yes) O2? Oxygen?(No) Ro CBC w Diff: (DIAZ: 03/26/2020 16:00) ( MsgRcvd 03/26/2020 16:34) Final results Test Result Flag Units (Reference) CBC W/AUTOMATED DIFF COMPLETE BLOOD COUNT WBC 7.1 10/uL (4.2 - 11.0) RBC 4.63 10/uL (4.20 - 5.40) HEMOGLOBIN 14.2 g/dL (12.0 - 16.0) HEMATOCRIT 40.9 % (37.0 - 47.0) MCV 88.3 fL (81.0 - 101) MCH 30.7 pg (27.0 - 34.0) MCHC 34.7 g/dL (31.0 - 36.0) RDW 12.8 % (11.5 - 14.5) PLATELETS 238 10/uL (150 - 450) MPV 9.2 fL (7.4 - 10.4) NEUT 59.9 % (37.0 - 80.0) LYMPH 31.1 % (25.0 - 40.0) MONO 8.0 % (3.0 - 8.0) EOS 0.4 % (0.0 - 7.0) BASO 0.3 % (0.0 - 2.5) %IG 0.3 H % (0.0 - 0.0) %NRBC 0.0 % (0.0 - 0.0) #NEUT 4.25 10/uL (2.00 - 6.90) #LYMPH 2.21 10/uL (0.60 - 3.40) #MONO 0.57 10/uL (0.00 - 0.90) #EOS 0.03 10/uL (0.00 - 0.70) #BASO 0.02 10/uL (0.00 - 0.20) #IG 0.02 10/uL (0.00 - 0.10) #NRBC 0.00 10/uL (0.00 - 0.00) MANUAL DIFF NOT INDICATED RBC MORPH NOT INDICATED CMP: (DIAZ: 03/26/2020 16:00) ( MsgRcvd 03/26/2020 16:59) Final results Test Result Flag Units (Reference) COMPREHENSIVE METABOLIC PANEL COMPREHENSIVE METABOLIC PANEL SODIUM 137 mEq/L (134 - 153) POTASSIUM 4.1 mEq/L (3.6 - 5.0) CHLORIDE 103 mEq/L (98 - 107) CO2 24 MEQ/L (22 - 30) GLUCOSE 90 MG/DL (65 - 110) BUN 11 MG/DL (7 - 21) 4 Clinical Report - Physicians/Mid Levels [facility] Emergency Department [address] [place] [address] Phone #: ext- [phone] 03/26/2020 15:43 Patient: GAVINO LIU Sex: F : 1985 Age: 35y CREATININE 0.6 L MG/DL (0.7 - 1.5) BUN/CREAT 18 (8 - 27) TOTAL PROTEIN 6.8 G/DL (6.3 - 8.2) ALBUMIN 4.4 G/DL (3.9 - 5.0) GLOBULIN 2.4 GM/DL (2.4 - 3.2) A/G RATIO 1.8 (0.8 - 2.0) CALCIUM 9.3 MG/DL (8.4 - 10.2) TOTAL BILI <0.7 MG/DL (0.2 - 1.3) ALKALINE PHOS 52 U/L (38 - 126) SGOT/AST 20 U/L (5 - 40) SGPT/ALT 29 U/L (7 - 56) ANION GAP 10.0 mmol/L (8.0 - 16.0) AGE 35 yrs NON-AA GFR >60 mL/min AFR AMER GFR >60 mL/min Male GFR Interprentation 20-49 yrs >60 mL/min Tkbvmy24-55 yrs >56 mL/min Normal 60-69 yrs >49 mL/min Normal 70-79yrs>42 mL/min Normal 80 and above >35 mL/min Normal Female GFRInterpretation 20-39 yrs >60 mL/min Normal 40-49 yrs >58 mL/minNormal 50-59 yrs >51 mL/min Normal 60-69 yrs >45 mL/min Gwbctv97-96 yrs >39 mL/min Normal 80 and above >32 mL/min NormalLipase: (DIAZ: 03/26/2020 16:00) ( MsgRcvd 03/26/2020 16:57) Final results Test Result Flag Units (Reference) LIPASE 36 U/L (13 - 60)Lactic Acid: (DIAZ: 03/26/2020 16:00) ( MsgRcvd 03/26/2020 16:34) Final results Test Result Flag Units (Reference) LACTIC ACID 1.1 MMOL/L (0.2 - 2.2)Beta-HCG, Qual Serum: (DIAZ: 03/26/2020 16:00) ( SdgRcvd 03/26/2020 16:59) Final results Test Result Flag Units (Reference) HCG SERUM QUAL NEGATIVE (NORMAL: NEGAT HCG SERUM QL REENTER NEGATIVE (NORMAL: NEGAT { KIT LOT # [id number] ){ KIT EXP DATE03.14.21 ){ PROCEDURAL CONTROL VALID)Urinalysis: (DIAZ: 03/26/2020 16:00) ( SdgRcvd 03/26/2020 16:26) Final results Test Result Flag Units (Reference) URINALYSIS URINALYSIS SOURCE R COLOR yellow (NORMAL: Yello CLARITY clear (NORMAL: Clear SPEC GRAVITY 1.015 (1.001 - 1.030 pH 6.5 (5 - 9) GLUCOSE NORM (NORMAL: Negat BILIRUBIN NEG (NORMAL: Negat KETONE NEG (NORMAL: Negat PROTEIN NEG (NORMAL: Negat NITRITE NEG (NORMAL: Negat BLOOD 10 A (NORMAL: Negat LEUK EST NEG (NORMAL: Negat UROBILINOGEN NOR (less than 1.0 5 Clinical Report - Physicians/Mid Levels [facility] Emergency Department [address] [place] [address] Phone #: ext- [phone] 03/26/2020 15:43 Patient: GAVINO LIU Sex: F : 1985 Age: 35y MICROSCOPIC See Below WBC 0 - 1 (NORMAL: NONE EPITHELIAL FEW (NORMAL: NONE BACTERIA Trace (NORMAL: NONE.PROGRESS AND PROCEDURESCourse of Care: VSS, NAD, AOx3, interacting well and appropriately, no use of accessory muscle, able tospeak full sentences, stable, non-toxic looking. Enter room and pt lying peacefully in bed in NAD. Patient stable. Denies any new issues, concerns, or complaints. PE demos NV intact b/l UE and LE. No neuro deficits. Ntoed TTP of the L abd and LLQ. Pt had surgeries in November 2019; noted pain about a week ago. Will obtain labs and imaigng for furhter eval. pending results. Reviewed results and noted findings. Pt has s/s c/w acute sinusititis. Will address and tx. Noted urine sample; pt has had no UTI s/s. Penidng culture, but abx will tx potential UTI issues. Pt has ahd GI/abd issues for a year. had surgery in November for [employer]OR [employer] IN COMBAT, but was uspposed to f/u with GI for furhter eval and has not. Ntoed fidnigns and possible excerbation of unk GI issues that pt will need to f/u with vs other. Pt abx will also cover a possible gastro issue. Enter room and patient lying peacefully in bed in NAD. Patient stable. Denies any new issues, concerns, or complaints. Discussed results with pt. Discussed tx plan with pt. Discussed and counseled on stable condition. Discussed importance of a f/u with PCP. Discussed return to ER criteria. Answered their questions. Indicates and verbalizes that they understand, agree, and will comply with above. Denies any new questions or concerns. Patient has capacity to understand. Pt is in full agreement with tx plan as tx of sinusititis will also co-tx other ailments and pts need to f/u with GI. Pt appears to know about ovarian cyst. Discharge decision based on the following: patient's condition is stable; patient's exam is stable; social support is adequate; transportation is available; follow-up is available. Discussed of OTC Motrin and Tylenol to control inflammation and pain management. Informed to follow directions on bottle that are appropriate for age and/or weight. Disposition: Discharged home in good and improved condition. Condition: good and stable. 6 Clinical Report - Physicians/Mid Levels [facility] Emergency Department [address] [place] [address] Phone #: ext- [phone] 03/26/2020 15:43 Patient: GAVINO LIU Sex: F : 1985 Age: 35yCLINICAL IMPRESSION Acute left lower quadrant abdominal pain of unknown cause. Single simple right ovarian cyst. Acute maxillary, ethmoidal and frontal sinusitis.INSTRUCTIONS Take Tylenol (Acetaminophen) or Motrin (Ibuprofen) as needed for fever control. Take medication according to label instructions. Do not work for two days. Drink plenty of fluids. No dietary restrictions. (Recommend to utilize OTC Motrin and Tylenol to control inflammation and pain management. Recommend to follow the instructions on the bottle and not to exceed.). Your Current Medications: Your current home medications have been reviewed. CONTINUE TAKING THE FOLLOWING MEDICATIONS: Lexapro Oral. Prescription Medications: Augmentin 875 mg-125 mg tablet Take 1 tablet twice a day for 7 days -- Dispense 14 tablet. Refills: 0. Substitution permitted. Pharmacy - [facility] [phone] - [address] [address]. . Zyrtec 10 mg tablet Take 1 tablet once a day for 15 days -- Dispense 15 tablet. Refills: 0. Substitution permitted. Pharmacy - [facility] 1889 - [address] [address]. . Flonase Allergy Relief 50 mcg/actuation nasal spray,suspension [place] 1-2 spray once a day for 4 days -- Dispense 1 nasal inhaler. Refills: 0. Substitution permitted. Pharmacy - [facility] [phone] - [address] [place] [address]. . promethazine 25 mg tablet Take 1 tablet three times a day for 3 days -- Dispense 9 tablet. Refills: 0. Substitution permitted. Pharmacy - [facility] [phone] [address] [place] [address]. . Follow-up: Return to the emergency department as needed. Follow up with your healthcare provider in about two days if not better. Call for an appointment. 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 Call for the next available 7 Clinical Report - Physicians/Mid Levels [facility] Emergency Department [address] [place] [address] Phone #: ext- [phone] 03/26/2020 15:43 Patient: GAVINO LIU Sex: F : 1985 Age: 35y appointment. Understanding of the discharge instructions verbalized by patient. Follow-up with: Sam Packer MD, Gastroenterology, [id number], [facility], [address], [address], [place], [address] Follow up. Reason for referral: evaluation and treatment.(Electronically signed by Amrik Vazquez P.A.-C 03/26/2020 21:51) Name Value Range Interpretation Code Description Data Sun rce(s) Supporting Document(s) ID Date Data Source [id number] 03/29/2020 08:37:00 PM EDT [facility] Name Value Range Interpretation Code Description Data Sun rce(s) Supporting Document(s) CULTURE URINE [facility] spital _CULTURE URINE_$$[id number]$$[id number]$$[id number]$$[id number]$$[id number]$$[id number]$$[id number]$$566106$$845344$$ [id number]$$917224$$313926$$[id number]$$[id number]$$157856$$941355$$953711$$506918$$917092$$ 206262$$032605$$401847$$737563$$564779$$960311$$[id number]$$[id number] -- Continued on next page --Patient: NOE MANCIA Order: [id number] Page 2Culture: CULTURE URINE Status: Final ==== -- Continued on next page --Patient: NOE MANCIA Order: [id number] Page 2Culture: CULTURE URINE Status: Prelim =====$$[id number]$$[id number] DATE/TIME: 03/29/2020 16:07Culture: CULTURE URINE Status: FinalUrine Culture,Comprehensive: P1No growth in 36 - 48 hours. Previous result entered on 03/29/2020 04:34 ET No growth after 18-24 hours.P1 [facility] performed [facility]: [facility] RANKIN #: [id number] [address] [place] [id number] [facility] [address]Medical Director : Caden Ramírez MD NPI #:Lab Di william : 03/29/[email or web address] REF 03/29/207.XMT.SENT REF ID Date Data Source [id number] 03/26/2020 04:59:00 PM EDT [facility] Name Value Range Interpretation Code Description Data Sun rce(s) Supporting Document(s) COMPREHENSIVE METABOLIC PANEL [facility] COMPREHENSIVE METABOLIC PANEL Sodium [Moles/volume] in Serum or Plasma 137 mEq/L 134 - 153 [facility] Potassium [Moles/volume] in Serum or Plasma 4.1 mEq/L 3.6 - 5.0 [facility] Chloride [Moles/volume] in Serum or Plasma 103 mEq/L 98 - 107 [facility] Carbon dioxide, total [Moles/volume] in Serum or Plasma 24 MEQ/L 22 - 30 [facility] Glucose [Mass/volume] in Serum or Plasma 90 MG/DL 65 - 110 [facility] BUN 11 MG/DL 7 - 21 [facility] Creatinine [Mass/volume] in Serum or Plasma 0.6 MG/DL 0.7 - 1.5 L [facility] BUN/CREAT 18 8 - 27 [facility] al Protein [Mass/volume] in Serum or Plasma 6.8 G/DL 6.3 - 8.2 [facility] Albumin [Mass/volume] in Serum or Plasma 4.4 G/DL 3.9 - 5.0 [facility] Globulin [Mass/volume] in Serum by calculation 2.4 GM/DL 2.4 - 3.2 [facility] A/G RATIO 1.8 0.8 - 2.0 [facility] Calcium [Mass/volume] in Serum or Plasma 9.3 MG/DL 8.4 - 10.2 [facility] Bilirubin.total [Mass/volume] in Serum or Plasma <0.7 MG/DL 0.2 - 1.3 [facility] Alkaline phosphatase [Enzymatic activity/volume] in Serum or Plasma 52 U/L 38 - 126 [facility] Aspartate aminotransferase [Enzymatic activity/volume] in Serum or Plasma 20 U/L 5 - 40 [facility] Alanine aminotransferase [Enzymatic activity/volume] in Seru m or Plasma 29 U/L 7 - 56 [facility] Anion gap 3 in Serum or Plasma 10.0 mmol/L 8.0 - 16.0 [facility] AGE 35 yrs [facility] Hospit al NON-AA GFR >60 mL/min [facility] ital AFR AMER GFR >60 mL/min [facility] spital Male GFR In terprentation 20-49 yrs >60 mL/min Normal 50-59 yrs >56 mL/min Normal 60-69 yrs >49 mL/min Normal 70-79yrs >42 mL/min Normal 80 and above >35 mL/min Normal Female GFR Interpretation 20-39 yrs >60 mL/min Normal 40-49 yrs >58 mL/min Normal 50-59 yrs >51 mL/min Normal 60-69 yrs >45 mL/min Normal 70-79 yrs >39 mL/min Normal 80 and above >32 mL/min Normal ID Date Data Source [id number] 03/26/2020 04:58:00 PM EDT [facility] Name Value Range Interpretation Code Description Data Sun rce(s) Supporting Document(s) HCG SERUM QUAL NEGATIVE NORMAL: NEGATIVE [facility] HCG SERUM QL REENTER NEGATIVE NORMAL: NEGATIVE [facility] { KIT LOT # [id number] ){ KIT EXP DATE 03.14.21 ){ PROCEDURAL CONTROL VALID ) ID Date Data Source [id number] 03/26/2020 04:57:00 PM EDT [facility] Name Value Range Interpretation Code Description Data Sun rce(s) Supporting Document(s) Lipase [Enzymatic activity/volume] in Serum or Plasma 36 U/L 13 - 60 [facility] ID Date Data Source [id number] 03/26/2020 04:34:00 PM EDT [facility] Name Value Range Interpretation Code Description Data Sun rce(s) Supporting Document(s) CBC W/AUTOMATED DIFF [facility] COMPLETE BLOOD COUNT Leukocytes [#/volume] in Blood by Automated count 7.1 10^3/uL 4.2 - 1 1.0 [facility] Erythrocytes [#/volume] in Blood by Automated count 4.63 10^6/uL 4. 20 - 5.40 [facility] Hemoglobin [Mass/volume] in Blood 14.2 g/dL 12.0 - 16.0 [facility] Hematocrit [Volume Fraction] of Blood by Automated count 40.9 % 3 7.0 - 47.0 [facility] Erythrocyte mean corpuscular volume [Entitic volume] by Auto mated count 88.3 fL 81.0 - 101 [facility] Erythrocyte mean corpuscular hemoglobin [Entitic mass] by Automated count 30.7 pg 27.0 - 34.0 [facility] Erythrocyte mean corpuscular hemoglobin concentration [Mass/volume] by Automated count 34.7 g/dL 31.0 - 36.0 [facility] Erythrocyte distribution width [Ratio] by Automated count 12.8 % 11.5 - 14.5 [facility] Platelets [#/volume] in Blood by Automated count 238 10^3/uL 150 - 45 0 [facility] Platelet mean volume [Entitic volume] in Blood by Automated count 9.2 fL 7.4 - 10.4 [facility] Neutrophils/100 leukocytes in Blood by Automated count 59.9 % 37. 0 - 80.0 [facility] Lymphocytes/100 leukocytes in Blood by Manual count 31.1 % 25.0 - 40.0 [facility] Monocytes/100 leukocytes in Blood by Automated count 8.0 % 3.0 - 8.0 [facility] Eosinophils/100 leukocytes in Blood by Automated count 0.4 % 0.0 - 7.0 [facility] Basophils/100 leukocytes in Blood by Automated count 0.3 % 0.0 - 2.5 [facility] %IG 0.3 % 0.0 - 0.0 [facility] %NRBC 0.0 % 0.0 - 0.0 [facility] Neutrophils [#/volume] in Blood by Automated count 4.25 10^3/uL 2.00 - 6.90 [facility] Lymphocytes [#/volume] in Blood by Automated count 2.21 10^3/uL 0.60 - 3.40 [facility] Monocytes [#/volume] in Blood by Automated count 0.57 10^3/uL 0.00 - 0.90 [facility] Eosinophils [#/volume] in Blood by Automated count 0.03 10^3/uL 0.00 - 0.70 [facility] Basophils [#/volume] in Blood by Automated count 0.02 10^3/uL 0.00 - 0.20 [facility] #IG 0.02 10^3/uL 0.00 - 0.10 [facility] #NRBC 0.00 10^3/uL 0.00 - 0.00 [facility] MANUAL DIFF NOT INDICATED [facility] RBC MORPH NOT INDICATED [facility] ID Date Data Source [id number] 03/26/2020 04:34:00 PM EDT [facility] Name Value Range Interpretation Code Description Data Sun rce(s) Supporting Document(s) Lactate [Moles/volume] in Serum or Plasma 1.1 MMOL/L 0.2 - 2.2 [facility] ID Date Data Source [id number] 03/26/2020 04:25:00 PM EDT [facility] Name Value Range Interpretation Code Description Data Sun rce(s) Supporting Document(s) [facility] UR[facility]ALYSIS SOURCE R [facility] Hospit al COLOR yellow NORMAL: Yellow [facility] CLARITY clear NORMAL: Clear [facility] Specific gravity of Urine by Test strip 1.015 1.001 - 1.030 [facility] pH 6.5 5 - 9 [facility] Glucose [Mass/volume] in Urine by Test strip NORM NORMAL: Negat [facility] Bilirubin.total [Presence] in Urine by Test strip NEG NORMAL: Negative [facility] Ketones [Presence] in Urine by Test strip NEG NORMAL: Negative [facility] Protein [Mass/volume] in Urine by Test strip NEG NORMAL: Negat [facility] Nitrite [Presence] in Urine by Test strip NEG NORMAL: Negative [facility] BLOOD 10 NORMAL: Negative [facility] Leukocyte esterase [Presence] in Urine by Test strip NEG KATELYN L: Negative [facility] Urobilinogen [Mass/volume] in Urine by Test strip NOR less loreto n 1.0 mg/dL [facility] MICROSCOPIC See Below [facility] WBC 0 - 1 NORMAL: NONE SEEN [facility] EPITHELIAL FEW NORMAL: NONE SEEN [facility] Bacteria [Presence] in Urine sediment by Light microscopy Tr marcia NORMAL: NONE SEEN [facility] ID Date Data Source [id number] 12/16/2019 10:20:52 AM EDT [facility] Measurements & CalculationsHeight: 64 inches (5 ft. 4 in.) 162.56 cm Weight: 188 pounds 2 oz. 85.51 kg Body Mass Index (BMI): 32.41BMI Interpretation: ObeseBody Surface Area (BSA): 1.91Vital SignsTemperature: 98.1F 36.72C tympanic Pulse Rate: 80 beats/minuteRespiratory Rate: 17 respirations/minuteBlood Pressure: 123/85 left arm sitting automaticO2 Saturation: 99% Vital Signs performed by: Chelsi Guajardo LPN, December 16, 2019 10:26 AMInitial Intake Information From: patientRoom #: 2Infectious Disease / Travel ScreeningRecent travel for you or any close contacts? NoHave you had any close contact with anyone diagnosed with or under investigation for COVID-19 (coronavirus)? NoFever? NoRespiratory symptoms: cough, cold, congestion, shortness of breath, difficulty breathing? NoLoss of smell? NoLoss of taste? NoSmoking, Tobacco, Vaping or Smoke Exposure StatusSmoke Status: former s mokerTobacco Use: NoDo you vape? NoPassive Smoke Exposure: NoMenstrual HistoryAny possibility of ? NoComments: ablasion and tubalHealthcare HistorySince your last office visit...Have you been admitted to the hospital? NoHave you been to an emergency room (ER) or urgent care clinic? NoHave you seen another healthcare provider? NoHave you seen a dentist? NoIntake performed by: Chelsi Guajardo LPN, December 16, 2019 10:23 AMRate Your HealthIn general, would you say your health is? ExcellentPain AssessmentAre you currently having any pain which... You would like your provider to address? No Affects your activity level? NoDepression Screening - PHQ-2Over the last two weeks, have you... Had little interest or pleasure in doing things? Not at all Been feeling down, depressed, or hopeless? Not at all PHQ-2 Score: 0Anxiety Screening - MICHAEL-2Over the last two weeks, have you been... Feeling nervous, anxious, or on edge? Not at all Unable to stop or control worrying? Not at all MICHAEL-2 Score: 0Food InsecurityWithin the past year...Did you worry whether your food would run out before you got money to buy more? NoWas there a time when the food you bought didn't last and you didn't have money to get more? NoScreening, Brief Intervention, & Referral to Treatment (SBIRT)Pre-Screening Questions How many times have you have 4 or more drinks in a day? 0How many times have you used an illegal drug or used a prescription medication for a non-medical reason? 0Performed by: Chelsi Guajardo LPN, December 16, 2019 10:23 AMPatient History Medical History:hx of depressionSurgical History:uterine ablationtubal ligation 2005left ovary/fallopian tube removal-11/15/19Family History:mother-heart diseasecancer-lots of familySchizophrenia (Mother)Social/Personal History: Chief Complaintfollow-up visit: surgery f/uHistory of Present Illness (HPI)Pt is a 34 y/o female, presents for routine follow-up.Pt wanted to update this offce on her postop status. Pt had left oopherectomy with left tube removal on 11/15/[address] Briceno. Has had no pain since surgery, is no longer on any pain medication. Feels her quality of life has significantly improved since her surgery.Pt is wondering about an increase in Lexapro for anxiety and feels a little overwhelmed with some good life changes that are "alot". Has been on Lexapro 10mg for 2 years. HPI performed by: Radha ZAMBRANO, December 16, 2019 10:42 AMTransitions of Care InboundProblem ReviewProblem List was reviewed and/or updated during this visit.Medication Reconciliation & ReviewMedication List was reviewed and/or updated during this visit, including review of any mmhf-zro-tnceuyl medications, herbal therapies, and/or supplements.Allergy ReviewAllergy List was reviewed and/or updated during this visit.Review of Systems General: Denies loss of appetite, chills, dizziness, fever, feeling ill. Cardiovascular: Denies chest pain, palpitations, feeling faint. Respiratory: Denies cough, difficulty breathing, shortness of breath. Gastrointestinal: Denies nausea, vomiting, diarrhea, pain or discomfort. Genitourinary: Denies incomplete emptying, blood in urine, pelvic pain. Psychiatric: Complains of anxiety, feeling stressed. Denies depression. Physical ExamGeneral Appearance: well nourished, well hydrated, no acute distressEyes, External: conjunctivae and lids normal, EOMIRespiratory, Auscultation: clear to auscultation bilate rally; no rales, rhonchi, or wheezesCardiovascular, Auscultation: S1, S2 audible; no murmur, rub, or gallop; RRRPeripheral Circulation: no clubbing, cyanosis, edema, or varicositiesAbdomen: soft, non-tender, no masses, bowel sounds normalGait & Station: normalOrientation: oriented to time, place, and personMood & Affect: mild anxiety, good eye contact, speech clear, affect full rangeJudgment & Insight: intactCare Management Plan Transitions of CareInboundRate Your HealthIn general, would you say your health is? ExcellentAssessment & Plan Problems:Changed:From: Dx of BMI 27.0-27.9 (ICD- V85.23) (QHM32-T35.27) To: Body Mass Index 32.0-32.9, adult (ICD-V85.32) (ICD10- Z68.32)From: Dx of Overweight (ICD-278.02) (ZAY10-O23.3) To: Obesity, unspecified (KHD57-E22.9)Assessed:Mixed anxiety and depressive disorder (ICD- 300.4) (HWN49-D88.8) Assessment: Instructions: Increase Lexapro to 15mg daily for improved control, otherwise tolerating medication well. Call with any concerns.Obesity, unspecified (HPU53-I14.9) Assessment: Instructions: Recommend healthy lifestyle modification. Encourage portion control, healthy food choices, and increasing routine physical activity. Recommendation is for 150 minutes throughout the week of cardiovascular exercise.Body Mass Index 32.0- 32.9, adult (ICD-V85.32) (LNN72-Q48.32) Assessment: Instructions: As above.Removed:Cough (ICD-786.2) (QUM51-G24), C/O pelvic pain (ICD-789.00) (SBN71-N18.2), Congestion of nasal sinus (ICD-478.19) (KAS80-C92.81), Dysuria (ICD-788.1) (AJY55-O52.0), Abdominal pain, left upper quadrant (ICD-789.02) (IGT31-I05.12), Nausea (ICD-787.02) (IMF11-V40.0), Continuous abdominal pain of left lower quadrant (YEY72-F62.32)Patient Instructions/Care Plan: Mixed anxiety and depressive disorder: Increase Lexapro to 15mg daily for improved control, otherwise tolerating medication well. Call with any concerns.Obesity- unspecified: Recommend healthy lifestyle modification. Encourage portion control, healthy food choices, and increasing routine physical activity. Recommendation is for 150 minutes throughout the week of cardiovascular exercise.Body Mass Index 32.0-32.9- adult: As above. Plan developed in collaboration with patient and/or familyMedications:LEXAPRO 10 MG ORAL TABLETMedication Changes:Refilled:LEXAPRO 10 MG ORAL TABLET-Take 1.5 tablets daily Qty: 45[Tablet] Refills: 5 Method: ElectronicRemoved:ZOFRAN 4 MG ORAL TABLET-take one tablet by mouth twice daily as needed Qty: 30[Tablet] Refills: 0, TESSALON PERLES 100 MG ORAL CAPSULE-take one tablet by mouth three times daily as needed Qty: 30[Capsule] Refills: 0, HYDROCODONE-ACETAMINOPHEN 5-325 MG ORAL TABLET-1 tab by mouth three times per day as needed for severe pain; MDD 3 tablets Qty: 21[Tablet] Refills: 0, OMEPRAZOLE 20 MG ORAL CAPSULE DELAYED RELEASE-1 capsule by mouth every day Qty: 30[Capsule] Refills: 2Changed:From: ORAL LEXAPRO 10 MG ORAL TABLET Qty: [id number] Refills: 45[Tablet] To: LEXAPRO 10 MG ORAL TABLET-Take 1.5 tablets daily Qty: 45[Tablet] Refills: 5Allergies:* PERTUSSIS VACCINE (Critical)Orders:Adult - Ofc Vst, EST, Level III [CPT-46729] Follow-Up Return to clinic: in 90 days for follow upAdditional Follow-Up: mood follow-upClinical Visit Summary CompletedMedications:LEXAPRO 10 MG ORAL TABLET (ESCITALOPRAM OXALATE) Take 1.5 tablets daily #45[Tablet] x 5 Route:ORAL Entered and Authorized by: Radha ZAMBRANO Method used: Electronically to [id number]* (retail) [id number] [place] [address] Note to Pharmacy: Route: ORAL; Indications: MIXED ANXIETY AND DEPRESSIVE DISORDER RxID: [id number] OMEPRAZOLE 20 MG ORAL CAPSULE DELAYED RELEASE (OMEPRAZOLE) 1 capsule by mouth every day #30[Capsule] x 2 Route:ORAL Entered by: Chelsi Guajardo LPN Authorized by: Mya THAKKAR Method used: Electronically to [facility]* (retail) [id number] [facility] [address] [place] [address] RxID: [id number] HYDROCODONE-ACETAMINOPHEN 5-325 MG ORAL TABLET (HYDROCODONE-ACETAMINOPHEN) 1 tab by mouth three times per day as needed for severe pain; MDD 3 tablets #21[Tablet] x 0 Entered by: Chelsi Guajardo LPN Authorized by: Radha ZAMBRANO Method used: Electronically to [facility]* (retail) [facility] [address] [place] [address] RxID: [id number] TESSALON PERLES 100 MG ORAL CAPSULE (BENZONATATE) take one tablet by mouth three times daily as needed #30[Capsule] x 0 Route:ORAL Entered by: Chelsi Guajardo LPN Authorized by: Mya THAKKAR Method used: Electronically to [facility]* (retail) [address] RxID: [id number] ZOFRAN 4 MG ORAL TABLET (ONDANSETRON HCL) take one tablet by mouth twice daily as needed #30[Tablet] x 0 Route:ORAL Entered by: Chelsi Guajardo LPN Authorized by: Mya THAKKAR Method used: [facility] to [facility]* (retail) [address] RxID: [id number] signed by Radha ZAMBRANO on 01/02/2020 at 1:25 PM Name Value Range Interpretation Code Description Data Sun rce(s) Supporting Document(s) ID Date Data Source [id number] 11/12/2019 09:52:00 AM EDT [facility] Name Value Range Interpretation Code Description Data Sun rce(s) Supporting Document(s) SARS CORONAVIRUS 2 RNA [facility] This lab was ordered by [facility] and reported by [facility]. ID Date Data Source [id number] 09/14/2019 03:17:15 PM EDT [facility] Measurements & CalculationsHeight: 64 inches (5 ft. 4 in.) 162.56 cm Weight: 178 pounds 8 oz. 81.14 kg Body Mass Index (BMI): 30.75BMI Interpretation: ObeseBody Surface Area (BSA): 1.87Weight Management Education Done (Nutrition/Physical Activity)Vital SignsTemperature: 98.5F tympanic Pulse Rate: 83 beats/minuteRespiratory Rate: 18 respirations/minuteBlood Pressure: 126/82 left arm sitting automaticO2 Saturation: 99% room airVital Signs performed by: Maty Kirk LPN, September 14, 2019 3:28 PMVital Signs performed by: Radha ZAMBRANO, September 14, 2019 3:43 PMInitial Intake Smoking, Tobacco, Vaping or Smoke Exposure StatusSmoke Status: former smokerTobacco Use: NoDo you vape? NoPassive Smoke Exposure: NoMenstrual HistoryComments: ablasion and tubes tiedHealthcare HistorySince your last office visit...Have you been admitted to the hospital? NoHave you been to an emergency room (ER) or urgent care clinic? NoHave you seen another healthcare provider? Yes - gastro and obgynHave you seen a dentist? NoRate Your HealthIn general, would you say your health is? ExcellentPain AssessmentAre you currently having any pain which... You would like your provider to address? Yes Affects your activity level? YesDepression Screening - PHQ-2Over the last two weeks, have you... Had little interest or pleasure in doing things? Not at all Been feeling down, depressed, or hopeless? Not at all PHQ-2 Score: 0Anxiety Screening - MICHAEL-2Over the last two weeks, have you been... Feeling nervous, anxious, or on edge? Not at all Unable to stop or control worrying? Not at all MICHAEL-2 Score: 0Infectious Disease / Travel ScreeningRecent travel for you or any close contacts? NoHave you had any close contact with anyone diagnosed with or under investigation for COVID-19 (coronavirus)? NoHave you had any of the following symptoms recently? Fever? NoRespiratory symptoms: cough, cold, conges tion, shortness of breath, difficulty breathing? NoPain AssessmentPain ScaleNumeric Rating Scale: 6 / 10Location: pelvic and abdDuration: monthsCharacter/Quality: aching, stabbing and pinchingIs the pain radiating? NoScreening, Brief Intervention, & Referral to Treatment (SBIRT)Pre-Screening Questions How many times have you have 4 or more drinks in a day? 0How many times have you used an illegal drug or used a prescription medication for a non- medical reason? 0Performed by: Maty Kirk LPN, September 14, 2019 3:25 PMPatient History Medical History:hx of depressionSurgical History:uterine ablationtubal ligation 2005Family History:mother-heart diseasecancer-lots of familySchizophrenia (Mother)Social/Personal History: Chief Complaintpelvic pain and History of Present Illness (HPI)34 yo female here for ongoing chronic pelvic pain and abdominal pain.Pt states she is waiting for her appointments at OBGYN 10/08/2019 and Gastro 10/06/2019, but would like a refill on her Hydrocodone until she has those appointments. Pt has been being worked up for both LUQ pain and midline pelvic pain for the last 2-3 months. Pt has cyst versus fibroid in her uterus, right ovarian cyst; she also has fatty liver and mild splenomegaly. Pt reports she is very cautious with hydrocodone use, takes a few times a week only, only for severe pain and only in the evening. Otherwise, she takes ibuprofen and uses heat for supportive care. Transitions of Care InboundProblem ReviewProblem List was reviewed and/or updated during this visit.Medication Reconciliation & ReviewMedication List was reviewed and/or updated during this visit, including review of any olkk-ebk-ogmnlfp medications, herbal therapies, and/or supplements.Allergy ReviewAllergy List was reviewed and/or updated during this visit.Adult Preventive CareProvider Calculated and Reviewed all Clinical Protocols for patient today. Labs/Meds/Other Counseling-Nutrition and Physical Activity:BMI Interpretation: Obese (09/14/2019) Counseling: Done (09/14/2019) Physical Activity: Done (09/14/2019)Review of Systems General: Denies chills, dizziness, fatigue, fever, headache, feeling ill. Cardiovascular: Denies chest pain, palpitations, feeling faint. Respiratory: Denies cough, difficulty breathing, shortness of breath. Gastrointestinal: Complains of see HPI, nausea, pain or discomfort. Denies vomiting, diarrhea, constipation. Genitourinary: Complains of see HPI, pelvic pain. Denies pain with urination, burning with urination, blood in urine, vaginal discharge. Physical ExamGeneral Appearance: well nourished, well hydrated, no acute distressEyes, External: conjunctivae and lids normal, EOMIRespiratory, Auscultation: clear to auscultation bilaterally; no rales, rhonchi, or wheezesCardiovascular, Auscultation: S1, S2 audible; no murmur, rub, or gallop; RRRPeripheral Circulation: no clubbing, cyanosis, edema, or varicositiesAbdomen: midline pelvic pain, minimal, with palpation; LUQ mild pain to light palpation, no palpable mass, no rebound or guardingGait & Station: normalOrientation: oriented to time, place, and personMood & Affect: no depression, anxiety, or agitationJudgment & Insight: intactCare Management Plan Transitions of CareInboundRate Your HealthIn general, would you say your health is? ExcellentAssessment & Plan Problems:Assessed:C/O pelvic pain (ICD-789.00) (PCL28-Q43.2) Assessment: Instructions: Continue as scheduled with ADVISOR TO COMMAND IN COMBAT. Continue with pain medication as needed. The medication you were prescribed today is a controlled substance. We have reviewed alternative treatment options and agree this is the most appropriate treatment at this time. We reviewed risks of taking this medication, including but not limited to: addiction, sedation, overdose. Taking more than prescribed or taking with another controlle d substance can result in overdose or , no drinking alcohol, no driving/operating heavy machinery while taking this medication. Keep out of the reach of childrenAbdominal pain, left upper quadrant (ICD-789.02) (ESB06-B11.12) Assessment: Instructions: Continue as scheduled with GI. Pain medication as above.Nausea (ICD-787.02) (GJQ10-E34.0) Assessment: Instructions: Sent for Zofran to use as needed.Patient Instructions/Care Plan: C/O pelvic pain: Continue as scheduled with ADVISOR TO COMMAND IN COMBAT. Continue with pain medication as needed. The medication you were prescribed today is a controlled substance. We have reviewed alternative treatment options and agree this is the most appropriate treatment at this time. We reviewed risks of taking this medication, including but not limited to: addiction, sedation, overdose. Taking more than prescribed or taking with another controlled substance can result in overdose or , no drinking alcohol, no driving/operating heavy machinery while taking this med ication. Keep out of the reach of childrenAbdominal pain- left upper quadrant: Continue as scheduled with GI. Pain medication as above.Nausea: Sent for Zofran to use as needed. Plan developed in collaboration with patient and/or familyMedications:ZOFRAN 4 MG ORAL TABLETTESSALON PERLES 100 MG ORAL CAPSULEHYDROCODONE-ACETAMINOPHEN 5-325 MG ORAL TABLETOMEPRAZOLE 20 MG ORAL CAPSULE DELAYED RELEASELEXAPRO 10 MG ORAL TABLETMedication Changes:Refilled:HYDROCODONE-ACETAMINOPHEN 5-325 MG ORAL TABLET-1 tab by mouth three times per day as needed for severe pain; MDD 3 tablets Qty: 21[Tablet] Refills: 0 Method: ElectronicRemoved:FLONASE ALLERGY RELIEF 50 MCG/ACT NASAL SUSPENSION-one spray to each nostril twice daily as needed x 10 daysChanged: To: HYDROCODONE-ACETAMINOPHEN 5-325 MG ORAL TABLET-1 tab by mouth three times per day as needed for severe pain; MDD 3 tablets Qty: 21[Tablet] Refills: 0Allergies:* PERTUSSIS VACCINE (Critical)Orders:Adult - Ofc Vst, EST, Level III [CPT-53049] Follow-Up Return to clinic: as needed, June 2020 for preventive care visitAdditional Follow-Up: annual physicalClinical Visit Summary CompletedMedications:HYDROCODONE-ACETAMINOPHEN 5-325 MG ORAL TABLET (HYDROC ODONE-ACETAMINOPHEN) 1 tab by mouth three times per day as needed for severe pain; MDD 3 tablets #21[Tablet] x 0 Entered and Authorized by: Radha ZAMBRANO Method used: Electronically to [facility]* (retail) [id number] [place] [address] [address] [place] [address] Note to Pharmacy: Route: ORAL; RxID: [id number] signed by Radha ZAMBRANO on 09/28/2019 at 11:22 AM Name Value Range Interpretation Code Description Data Sun rce(s) Supporting Document(s) ID Date Data Source [id number] 08/31/2019 02:56:43 PM EDT [facility] Measurements & CalculationsHeight: 64 inches (5 ft. 4 in.) 162.56 cm Weight: 180 pounds 2 oz. 81.88 kg Body Mass Index (BMI): 31.03BMI Interpretation: ObeseBody Surface Area (BSA): 1.87Vital SignsTemperature: 98.6FPulse Rate: 82 beats/minuteRespiratory Rate: 14 respirations/minuteBlood Pressure: 119/81 O2 Saturation: 97% Vital Signs performed by: Jodi Robles LPN, August 31, 2019 3:04 PMVital Signs performed by: Jodi Robles LPN, August 31, 2019 3:04 PMInitial Intake Information from: patientRoom #: 12Smoking, Tobacco, Vaping or Smoke Exposure StatusSmoke Status: former smokerTobacco Use: NoDo you vape? NoPassive Smoke Exposure: NoMenstrual HistoryAny possibility of ? NoComments: Ablasion and tubes tied Healthcare HistorySince your last office visit...Have you been admitted to the hospital? NoHave you been to an emergency room (ER) or urgent care clinic? NoHave you seen another healthcare provider? Yes - Gastro Have you seen a dentist? NoRate Your HealthIn general, would you say your health is? ExcellentPain AssessmentAre you currently having any pain which... You would like your provider to address? No Affects your activity level? NoDepression Screening - PHQ-2Over the last two weeks, have you... Had little interest or pleasure in doing things? Not at all Been feeling down, depressed, or hopeless? Not at all PHQ-2 Score: 0Anxiety Screening - MICHAEL-2Over the last two weeks, have you been... Feeling nervous, anxious, or on edge? Not at all Unable to stop or control worrying? Not at all MICHAEL-2 Score: 0Food InsecurityWithin the past year...Did you worry whether your food would run out before you got money to buy more? NoWas there a time when the food you bought didn't last and you didn't have money to get more? NoInfectious Disease / Travel ScreeningRecent travel for you or any close contacts? NoHave you had any close contact with anyone diagnosed with or under investigation for COVID-19 (coronavirus)? NoHave you had any of the following symptoms recently? Fever? NoRespiratory symptoms: cough, cold, congestion, shortness of breath, difficulty breathing? NoScreening, Brief Intervention, & Referral to Treatment (SBIRT)Pre- Screening Questions How many times have you have 4 or more drinks in a day? 0How many times have you used an illegal drug or used a prescription medication for a non-medical reason? 0Performed by: Jodi Robles LPN, August 31, 2019 3:09 PMPatient History Social/Personal History: Chief Complaintflu like symptoms , no fever ,cough History of Present Illness (HPI)34 yo female concerned with cough, congession, runny nose and intermittent body ache.Pt would like to have flu test done. Pt states symptoms started about 8 days ago. Pt states have been taking OTC nyquil and dayquil. Pt states not much releif.Pt would like a refill of her Lexapro. Pt states still ongoing pelvic pain. HPI performed by: Mya THAKKAR, August 31, 2019 3:36 PMTransitions of Care InboundProblem ReviewProblem List was reviewed and/or updated during this visit.Medication Reconciliation & ReviewMedication List was reviewed and/or updated during this visit, including review of any qhzd-zok-fqlkvpq medications, herbal therapies, and/or supplements.Allergy ReviewAllergy List was reviewed and/or updated during this visit.Provider Calculated and Reviewed all Clinical Protocols for patient today. Review of Systems General: Denies loss of appetite, chills, dizziness, fatigue, fever, continued fever, headache, feeling ill, sweats, night sweats, sleep disturbances, weight loss. Eyes: Denies blurring of vision, double vision, irritation, discharge, vision loss, eye pain, eye swelling, droopy eyelid, sensitivity to light, redness, itching. Ears/Nose/Throat: Complains of nasal congestion, sore throat. Cardiovascular: Denies chest pain, palpitations, feeling faint, trouble breathing w/exertion, SOB upon lying down, SOB at night, peripheral edema, elevated blood pressure, decreased heart rate. Respiratory: Denies cough, difficulty breathing, shortness of breath, excessive sputum, coughing up blood, wheezing, chest pain. Gastrointestinal: Denies nausea, vomiting, bleeding, burning, itching, irritation, cramps, diarrhea, constipation. Genitourinary: Denies urinary incontinence, pain with urination, burning with urination, urinary frequency, urinary hesitancy, urinary urgency, urinary urgency at night, incomplete emptying, blood in urine, pelvic pain. Musculoskeletal: Denies back pain, joint pain, leg pain, joint swelling, body aches, muscle aches, muscle cramps, muscle weakness, stiffness, recent injury. Neurologic: Denies muscle impairment, weakness, numbness/tingling, seizures, slurred speech, feeling faint, tremors, vertigo, paralysis on one side, paralysis on both sides. Psychiatric: Denies depression, anxiety, memory loss, mental disturbance, suicidal ideation, homicidal ideation, hallucinations, paranoia, feeling stressed, hearing voices. Endocrine: Denies cold intolerance, heat intolerance, excessive thirst, excessive hunger, excessive urination, weight loss, weight gain. Physical ExamGeneral Appearance: well nourished, well hydrated, no acute distressEyes, External: conjunctivae and lids normal, EOMINasal: nasal congessionPharynx: tongue normal, posterior pharynx without erythema or exudate, no thrush/aphthous ulcerRespiratory, Auscultation: clear to auscultation bilaterally; no rales, rhonchi, or wheezesRespiratory, Effort: no intercostal retractions or use of accessory musclesCardiovascular, Auscultation: S1, S2 audible; no murmur, rub, or gallop; RRRPeripheral Circulation: no clubbing, cyanosis, edema, or varicositiesAbdomen: tenderness on palpation pelvicGait & Station: normalSkin, Inspection: no rashes, lesions, or ulcerationsOrientation: oriented to time, place, and personMood & Affect: no depression, anxiety, or agitationJudgment & Insight: intactCare Management Plan Transitions of CareInboundRate Your HealthIn general, would you say your health is? ExcellentAssessment & Plan Problems:Added: Person consulting for explanation of examination or test findings (ICD-V65.8) (PCN29-X92.2) Assessment: Instructions: We have reviewed your CT scan result for you today.Congestion of nasal sinus (ICD-478.19) (REB04-Y12.81) Assessment: Instructions: Flu test negative today. We have sent a prescription to your pharmacy today. Please use medication as prescribed. Please report any major side effects. Please continue adequate hydration good nutrition and adequate rest.Cough (ICD-786.2) (ICD10- R05) Assessment: Instructions: We have sent a prescription to your pharmacy today. Please use medication as prescribed. Please report any major side effects. Please continue adequate hydration good nutrition and adequate re st.C/O pelvic pain (ICD-789.00) (DQX24-G74.2) Assessment: Instructions: We have made a referral to ADVISOR TO COMMAND IN COMBAT for you today. We will contact you to set this up.Assessed:Continuous abdominal pain of left lower quadrant (CEF50-M18.32) Assessment: Instructions: Possible uterine cyst/ uterine fibroids on CT scan result. We have made a referral for you today. We will contact you to set this up.Patient Instructions/Care Plan: Continuous abdominal pain of left lower quadrant: Possible uterine cyst/ uterine fibroids on CT scan result. We have made a referral for you today. We will contact you to set this up.Person consulting for explanation of examination or test findings: We have reviewed your CT scan result for you today.Congestion of nasal sinus: Flu test negative today. We have sent a prescription to your pharmacy today. Please use medication as prescribed. Please report any major side effects. Please continue adequate hydration good nutrition and adequate rest.Cough: We have sent a prescription to your pharmacy today. Please use medication as prescribed. Please report any major side effects. Please continue adequate hydration good nutrition and adequate rest.C/O pelvic pain: We have made a referral to [facility] for you today. We will contact you to set this up. Plan developed in collaboration with patient and/or familyMedications:TESSALON PERLES 100 MG ORAL CAPSULEFLONASE ALLERGY RELIEF 50 MCG/ACT NASAL SUSPENSIONHYDROCODONE- ACETAMINOPHEN 5-325 MG ORAL TABLETOMEPRAZOLE 20 MG ORAL CAPSULE DELAYED RELEASELEXAPRO 10 MG ORAL TABLETMedication Changes:Refilled:LEXAPRO 10 MG ORAL TABLET-1 tab by mouth every day Qty: 30[Tablet] Refills: 3 Method: ElectronicNew Prescription:FLONASE ALLERGY RELIEF 50 MCG/ACT NASAL SUSPENSION- one spray to each nostril twice daily as needed x 10 days Qty: 1[Container] Refills: 0 Method: ElectronicTESSALON PERLES 100 MG ORAL CAPSULE-take one tablet by mouth three times daily as needed Qty: 30[Capsule] Refills: 0 Method: ElectronicAllergies:* PERTUSSIS VACCINE (Critical)Orders:Flu test [CPT- 66945] Program Clerk [CPT-66126] Adult - Ofc Vst, EST, Level IV [CPT-72811] Follow-Up Return to clinic: as scheduled and as needed. Clinical Visit Summary CompletedM edications:TESSALON PERLES 100 MG ORAL CAPSULE (BENZONATATE) take one tablet by mouth three times daily as needed #30[Capsule] x 0 Route:ORAL Entered and Authorized by: Mya THAKKAR Method used: Electronically to [facility] [address] (retail) [place] [address] Note to Pharmacy: Route: ORAL; Indications: COUGH RxID: [id number] ALLERGY RELIEF 50 MCG/ACT NASAL SUSPENSION (FLUTICASONE PROPIONATE) one spray to each nostril twice daily as needed x 10 days #1[Container] x 0 Route:NASAL Entered and Authorized by: Mya THAKKAR Method used: Electronically to [facility] [address] (retail) [place] [address] Note to Pharmacy: Route: NASAL; Indications: CONGESTION OF NASAL SINUS RxID: [id number] 10 MG ORAL TABLET (ESCITALOPRAM OXALATE) 1 tab by mouth every day #30[Tablet] x 3 Route:ORAL Entered and Authorized by: Mya THAKKAR Method used: Electronically to [facility] [address] (retail) [address] [address] [place] [address] Note to Pharmacy: Route: ORAL; RxID: [id number] signed by Mya THAKKAR on 09/03/2019 at 8:05 PM Name Value Range Interpretation Code Description Data Sun rce(s) Supporting Document(s) ID Date Data Source [id number] 08/18/2019 02:25:00 PM EDT [facility] Name Value Range Interpretation Code Description Data Sun rce(s) Supporting Document(s) HCT 44.3 % 36.0-47.0 N [facility] HGB 15.2 g/dL 12.0-15.5 [facility] MCH 34.3 G/DL pg 32.0-36.5 [facility] MCHC 31.8 PG % 27.0-33.0 [facility] PLATELETS 230 10 10*3/mm3 150-450 [facility] RBC 4.78 10 10*6/mm3 4.00-5.40 [facility] RDW 13.0 % 11.5-14.5 [facility] WBC TOTAL 7.1 4.0-10.0 [facility] ID Date Data Source [id number] 08/18/2019 02:25:00 PM EDT [facility] Name Value Range Interpretation Code Description Data Sun rce(s) Supporting Document(s) BG FASTING 93 mg/dL 70-100 N [facility] ID Date Data Source [id number] 08/18/2019 02:00:00 PM EDT [facility] Name Value Range Interpretation Code Description Data Sun rce(s) Supporting Document(s) APPEARANCE U CLEAR CLEAR N [facility] SPEC GR URIN 1.015 1.002-1.035 N [facility] UA COLOR YELLOW YELLOW N [facility] ID Date Data Source [id number] 08/18/2019 01:07:16 PM EDT [facility] Measurements & CalculationsHeight: 64 inches (5 ft. 4 in.) 162.56 cm Weight: 170 pounds 6 oz. 77.45 kg Body Mass Index (BMI): 29.35BMI Interpretation: OverweightBody Surface Area (BSA): 1.83Weight Management Education Done (Nutrition/Physical Activity)Vital SignsTemperature: 98.4FPulse Rate: 88 beats/minuteRespiratory Rate: 14 respirations/minuteBlood Pressure: 118/78 O2 Saturation: 98% Vital Signs performed by: Jodi Robles LPN, August 18, 2019 1:08 PMVital Signs performed by: Jodi Robles LPN, August 18, 2019 1:08 PMInitial Intake Information from: patientRoom #: 8Smoking, Tobacco, Vaping or Smoke Exposure StatusSmoke Status: former smokerTobacco Use: NoDo you vape? NoPassive Smoke Exposure: NoMenstrual HistoryAny possibility of ? NoComments: AblasionHealthcare HistorySince your last office visit...Have you been admitted to the hospital? NoHave you been to an emergency room (ER) or urgent care clinic ? NoHave you seen another healthcare provider? Yes - [facility] U[facility] , gastro Have you seen a dentist? NoRate Your HealthIn general, would you say your health is? Very GoodPain AssessmentAre you currently having any pain which... You would like your provider to address? Yes Affects your activity level? NoDepression Screening - PHQ-2Over the last two weeks, have you... Had little interest or pleasure in doing things? Not at all Been feeling down, depressed, or hopeless? Not at all PHQ-2 Score: 0Anxiety Screening - MICHAEL-2Over the last two weeks, have you been... Feeling nervous, anxious, or on edge? Not at all Unable to stop or control worrying? Not at all MICHAEL-2 Score: 0Food InsecurityWithin the past year...Did you worry whether your food would run out before you got money to buy more? NoWas there a time when the food you bought didn't last and you didn't have money to get more? NoInfectious Disease / Travel ScreeningRecent travel for you, your family, and/or any sexual partners? NoPain AssessmentPain ScaleNumeric Rating Scale: 6 / 10Location: stomach Duration: 2 months Frequency: DailyCharacter/Quality: aching, burning, stabbing and pinchingIs the pain radiating? NoScreening, Brief Intervention, & Referral to Treatment (SBIRT)Pre-Screening Questions How many times have you have 4 or more drinks in a day? 0How many times have you used an illegal drug or used a prescription medication for a non-medical reason? 0Performed by: Jodi Robles LPN, August 18, 2019 1:17 PMPatient History Medical History:hx of depressionSurgical History:uterine ablationtubal ligation 2005Family History :mother-heart diseasecancer-lots of familySchizophrenia (Mother)Social/Personal History: Chief Complaintfollow-up visit, abdominal pain , room 8History of Present Illness (HPI)34 YO female her for follow up for abdominal pain ongoing. Pt states also pain when urinating ongoing. pt states also dark urine. Pt denies any other concernsHPI performed by: Mya THAKKAR, August 18, 2019 1:44 PMTransitions of Care InboundProblem ReviewProblem List was reviewed and/or updated during this visit.Medication Reconciliation & ReviewMedication List was reviewed and/or updated during this visit, including review of any thqu-brc-hwxtpvj medications, herbal therapies, and/or supplements.Allergy ReviewAllergy List was reviewed and/or updated during this visit.Adult Preventive CareProvider Calculated and Reviewed all Clinical Protocols for patient today. Labs/Meds/Other Counseling-Nutrition and Physical Activity:BMI Interpretation: Overweight (08/18/2019) Counseling: Done (08/18/2019) Physical Activity: Done (08/18/2019)Review of Systems General: Denies loss of appetite, chills, dizziness, fatigue, fever, continued fever, headache, feeling ill, sweats, night sweats, sleep disturbances, weight loss. Eyes: Denies blurring of vision, double vision, irritation, discharge, vision loss, eye pain, eye swelling, droopy eyelid, sensitivity to light, redness, itching. Ears/Nose/Throat: Denies earache, ear discharge, ringing in ears, decreased hearing, nasal congestion, nosebleeds, runny nose, sore throat, hoarseness, difficulty swallowing, dry mouth, tooth pain, bleeding gums, swollen glands. Cardiovascular: Denies chest pain, palpitations, feeling faint, trouble breathing w/exertion, SOB upon lying down, SOB at night, peripheral edema, elevated blood pressure, decreased heart rate. Respiratory: Denies cough, difficulty breathing, shortness of breath, excessive sputum, coughing up blood, wheezing, chest pain. Breast: Denies discoloration, tenderness, breast changes, breast lump, nipple discharge. Gastrointestinal: Complains of abdominal pain. Genitourinary: Complains of pain with urination. Denies urinary incontinence, burning with urination, urinary frequency, urinary hesitancy, urinary urgency, urinary urgency at night, incomplete emptying, pelvic pain. Musculoskeletal: Denies back pain, joint pain, leg pain, joint swelling, body aches, muscle aches, muscle cramps, muscle weakness, stiffness, recent injury. Skin: Denies rash, hives, redness, itching, dryness, nail changes, suspicious lesions, athlete's foot, rash on palms, rash on bottom of feet. Neurologic: Denies muscle impairment, weakness, numbness/tingling, seizures, slurred speech, feeling faint, tremors, vertigo, paralysis on one side, paralysis on both sides. Psychiatric: Denies depression, anxiety, memory loss, mental disturbance, suicidal ideation, homicidal ideation, hallucinations, paranoia, feeling stressed, hearing voices. Endocrine: Denies cold intolerance, heat intolerance, excessive thirst, excessive hunger, excessive urination, weight loss, weight gain. Heme/Lymphatic: Denies abnormal bruising, bleeding, enlarged lymph nodes. Physical ExamGeneral Appearance: well nourished, well hydrated, no acute distr essEyes, External: conjunctivae and lids normal, EOMIRespiratory, Auscultation: clear to auscultation bilaterally; no rales, rhonchi, or wheezesRespiratory, Effort: no intercostal retractions or use of accessory musclesCardiovascular, Auscultation: S1, S2 audible; no murmur, rub, or gallop; RRRPeripheral Circulation: no clubbing, cyanosis, edema, or varicositiesAbdomen: tenderness on palpation pelvicGait & Station: normalSkin, Inspection: no rashes, lesions, or ulcerationsOrientation: oriented to time, place, and personMood & Affect: no depression, anxiety, or agitationJudgment & Insight: intactCare Management Plan Transitions of CareInboundRate Your HealthIn general, would you say your health is? Very GoodAssessment & Plan Problems:Added: Dysuria (ICD-788.1) (TPL41-V35.0) Assessment: Instructions: UA in clinic negative today. Please continue adequate intake of water. if increase symptoms please return to clinic otr the ER. Will send urine to lab for further analysis.Assessed:Abdominal pain, left upper quadrant (ICD-789.02) (ORB02-I24.12) Assessment: pelvic pain on palpation. US scheduled for 08/31. Instructions: We have ordered pelvic US for further eval. We will contact you if your result is abnormal. Please continue medication as prescribed. Please continue to try to maintain bland diet. Please try to maintain adequate water intake. Please Keep your appointment with your GI specialist.Continuous abdominal pain of left lower quadrant (JVX00-D14.32) Assessment: Instructions: We have ordered a pelvic US for further eval. We will contact you if your result is abnormal.Continuous abdominal pain of left lower quadrant (MZO76-K95.32) Assessment: Abd CT negative. discussed with patient.Health Screening (ICD-V70.0) (WOG45-L33.9) Assessment: Instructions: labs ordered today.Patient Instructions/Care Plan: Abdominal pain- left upper quadrant: We have ordered pelvic US for further eval. We will contact you if your result is abnormal. Please continue medication as prescribed. Please continue to try to maintain bland diet. Please try to maintain adequate water intake. Please Keep your appointment with your GI specialist.Continuous abdominal pain of left lower quadrant: We have ordered a pelvic US for further eval. We will contact you if your result is abnormal.Dysuria: UA in clinic negative today. Please continue adequate intake of water. if increase symptoms please return to clinic otr the ER. Will send urine to lab for further analysis.Health Screening: labs ordered today. Plan developed in collaboration with patient and/or familyMedications:HYDROCODONE-ACETAMINOPHEN 5-325 MG ORAL TABLETOMEPRAZOLE 20 MG ORAL CAPSULE DELAYED RELEASELEXAPRO 10 MG ORAL TABLETAllergies:* PERTUSSIS VACCINE (Critical)Orders:COMP METABOLIC PANEL [CPT-62408] CBC W/DIFF [CPT-41397] URINALYSIS [CPT-76810] Urinalysis-manual [CPT-00485] Urine Culture & Sensitivity [CPT-28605] 66611-Jfd Vst-Est Level I [CPT-12246] 82163 - Venipuncture [CPT- 20298] Adult - Ofc Vst, EST, Level IV [CPT-26505] Follow-Up Return to clinic: as scheduled and as needed Clinical Visit Summary Completed]Labs In-House Urine TestsDate/Time Collected: August 1:45 pmDate/Time Received: August 1:45 pmTest Result Reference Range Normal ValueRoutine Urinalysis Color: yellow Yellow pH: 6.0 5.0-6.5 Specific [place]: 1.010 1.020>=1.030Jodi Robles LPN, August 19, 2019 10:07 AMBlood TestsDate/Time Collected: August 18, 2019 2:36 PMTest Result Reference Range Normal ValueComments: blood draw done in [facility] done in the [facility] Nasir Gupta MA, August 18, 2019 2:36 PM Name Value Range Interpretation Code Description Data Sun rce(s) Supporting Document(s) ID Date Data Source [id number] 08/18/2019 01:07:16 PM EDT [facility] Name Value Range Interpretation Code Description Data Sun rce(s) Supporting Document(s) PH URINE 6.0 [facility] SPEC GR URIN 1.010 [facility] UA COLOR yellow [facility] ID Date Data Source [id number] 08/04/2019 04:19:17 PM EST [facility] Measurements & CalculationsHeight: 64 inches (5 ft. 4 in.) 162.56 cm Weight: 170 pounds 77.27 kg Body Mass Index (BMI): 29.29BMI Interpretation: OverweightBody Surface Area (BSA): 1.83Weight Management Education Done (Nutrition/Physical Activity)Vital SignsTemperature: 97.7F 36.50C oral Pulse Rate: 75 beats/minuteRespiratory Rate: 16 respirations/minuteBlood Pressure: 121/79 right arm sitting automaticVital Signs performed by: Claudine Madison , August 04, 2019 4:27 PMVital Signs performed by: Claudine Madison , August 04, 2019 4:27 PMInitial Intake Information from: patientRoom #: 11Smoking, Tobacco, Vaping or Smoke Exposure StatusSmoke Status: former smokerTobacco Use: NoDo you vape? NoPassive Smoke Exposure: NoMenstrual HistoryAny possibility of ? NoHealthcare HistorySince your last office visit...Have you been admitted to the hospital? NoHave you been to an emergency room (ER) or urgent care clinic? NoHave you seen another healthcare provider? Yes - [facility] urologyHealthcare provider date reported today: 08/03/2019Have you seen a dentist? NoIntake performed by: Claudine Madison , August 04, 2019 4:21 PMRate Your HealthIn general, would you say your health is? ExcellentPain AssessmentAre you currently having any pain which... You would like your pro vider to address? Yes Affects your activity level? YesDepression Screening - PHQ-2Over the last two weeks, have you... Had little interest or pleasure in doing things? Not at all Been feeling down, depressed, or hopeless? Not at all PHQ-2 Score: 0Anxiety Screening - MICHAEL-2Over the last two weeks, have you been... Feeling nervous, anxious, or on edge? Not at all Unable to stop or control worrying? Not at all MICHAEL-2 Score: 0Infectious Disease / Travel ScreeningRecent travel for you, your family, and/or any sexual partners? NoPain AssessmentPain ScaleNumeric Rating Scale: 6 / 10Location: left sideDuration: comes and goesFrequency: DailyCharacter/Quality: stabbingIs the pain radiating? NoScreening, Brief Intervention, & Referral to Treatment (SBIRT)Pre-Screening Questions How many times have you have 4 or more drinks in a day? 0How many times have you used an illegal drug or used a prescription medication for a non- medical reason? 0Performed by: Claudine Madison , August 04, 2019 4:22 PMPatient History Medical History:hx of depressionSurgical History:uterine ablationtubal ligation 2005Family History:mother-heart diseasecancer-lots of familySchizophrenia (Mother)Social/Personal History: Chief Complaintfollow-up visit- kidney issuesHistory of Present Illness (HPI)Telemedicine visit with patient's location [facility] and provider's location at offsite office. Additional person(s)participating in the visit: n/a. Pt here today for follow up of kidney stones. She had a cystoscopy which normal and still having LUQ pain. States that the pain is still accompanied by nausea and vomtiing controlled with zofran. Originally the pain was in her left flank and was thought to be caused by kidney stones, the CT only demonstrated intrarenal stones, non-obstructing. Urology has discharged her from care. She is still unable to work due to pain and nausea. HPI performed by: Dolly CRANE, August 04, 2019 4:29 PMTransitions of Care InboundProblem ReviewProblem List was reviewed and/or updated during this visit.Medication Reconciliation & ReviewMedication List was reviewed and/or updated during this visit, including review of any euid-zgd-hbphrsq medications, herbal therapies, and/or supplements.Allergy ReviewAllergy List was reviewed and/or updated during this visit.Adult Preventive CareProvider Calculated and Reviewed all Clinical Protocols for patient today. Labs/Meds/Other Counseling-Nutrition and Physical Activity:BMI Interpretation: Overweight (08/04/2019) Counseling: Done (08/04/2019) Physical Activity: Done (08/04/2019)Review of Systems General: Denies chills, fever, headache, feeling ill, sweats, night sweats. Gastrointestinal: Complains of see HPI, nausea, vomiting, pain or discomfort, abdominal pain, heartburn. Denies diarrhea, constipation, pain with BM, change in bowel habits, fecal incontinence, blood in stool, black or tarry stools. Genitourinary: Complains of pelvic pain. Denies urinary incontinence, pain with urination, burning with urination, urinary frequency, urinary hesitancy, urinary urgency, blood in urine. Neurologic: Denies weakness, numbness/tingling. Psychiatric: Complains of feeling stressed. Denies depression, anxiety. Physical ExamGeneral Appearance: well nourished, well hydrated, no acute distressEyes, External: conjunctivae and lids normal, EOMIHearing: bilaterally [place]- wearing hearing aidsRespiratory, Effort: no intercostal retractions or use of accessory musclesAbdomen: unable to do abd exam, deferred to last in person exam detailsGait & Station: normalOrientation: oriented to time, place, and p ersonMood & Affect: no depression, anxiety, or agitationJudgment & Insight: intactCare Management Plan Medication Adherence & Education Information on new prescriptions provided to patient/family/caregiver.Transitions of CareInboundRate Your HealthIn general, would you say your health is? ExcellentAssessment & Plan Problems:Assessed:Abdominal pain, left upper quadrant (ICD-789.02) (ISG37-W14.12) Assessment: Instructions: I have ordered a test to be done at [facility]. We will notify you of any abnormal results. If you do not hear from us, please call or make an appointment for test results. The nurse will call you to set this up. Your prescriptions have been sent to your preferred pharmacy electronically, please take them as prescribed and report any significant side effects.Abdominal pain, left upper quadrant (ICD-789.02) (PDY32-U66.12) Assessment: Kidney stone etiology ruled out. Will get US to look at abdomen and pelvis. Start PPI to help determine if this could be gastritis GERD related illness. Will refer to GI [facility]. Pt given precautions on when to go to ER. RTC in 2 weeks for follow up.Kidney stone (ICD-592.0) (ICD10- N20.0) Assessment: Urology has ruled out kidney stone or other urologic etiology.Patient Instructions/Care Plan: Abdominal pain- left upper quadrant: I have ordered a test to be done at [facility]. We will notify you of any abnormal results. If you do not hear from us, please call or make an appointment for test results. The nurse will call you to set this up. Your prescriptions have been sent to your preferred pharmacy electronically, please take them as prescribed and report any significant side effects. Plan developed in collaboration with patient and/or familyMedications:OMEPRAZOLE 20 MG ORAL CAPSULE DELAYED RELEASELEXAPRO 10 MG ORAL TABLETMedication Changes:New Prescription:OMEPRAZOLE 20 MG ORAL CAPSULE DELAYED RELEASE-1 capsule by mouth every day Qty: 30[Capsule] Refills: 2 Method: ElectronicRemoved:HYDROCODONE-ACETAMINOPHEN 5-325 MG ORAL TABLET-1 tab by mouth three times per day as needed for severe painAllergies:* PERTUSSIS VACCINE (Critical)Information on new prescriptions provided to patient.Orders:Gastroent erology Consult [CPT-34523] Ultrasound, pelvic (nonobstetric), real time with image documentation; limited or follow-up (eg, for follicles) [CPT-67803] Ultrasound, abdominal, limited [CPT-93965] Office Visit - Established, Level 4 [CPT-96153RW] Follow-Up Return to clinic: 2 weeks with Mya for follow up Clinical Visit Summary Completed] P M Name Value Range Interpretation Code Description Data Sun rce(s) Supporting Document(s) ID Date Data Source [id number] 07/30/2019 03:30:00 PM EST [facility] Name Value Range Interpretation Code Description Data Sun rce(s) Supporting Document(s) BG FASTING 87 mg/dL 70-100 N [facility] ID Date Data Source [id number] 07/30/2019 03:30:00 PM [facility] Name Value Range Interpretation Code Description Data Sun rce(s) Supporting Document(s) HCT 42.0 % 36.0-47.0 [facility] HGB 14.6 g/dL 12.0-15.5 [facility] MCH 34.8 G/DL pg 32.0-36.5 N [facility] MCHC 31.6 PG % 27.0-33.0 [facility] PLATELETS 258 10 10*3/mm3 150-450 N [facility] RBC 4.62 10 10*6/mm3 4.00-5.40 [facility] RDW 12.7 % 11.5-14.5 [facility] WBC TOTAL 6.7 4.0-10.0 [facility] ID Date Data Source [id number] 07/30/2019 02:31:48 PM [facility] Measurements & CalculationsHeight: 64 inches (5 ft. 4 in.) 162.56 cm Weight: 171 pounds 8 oz. 77.95 kg Body Mass Index (BMI): 29.54BMI Interpretation: OverweightBody Surface Area (BSA): 1.83Vital SignsTemperature: 98.4FPulse Rate: 78 beats/minuteRespiratory Rate: 16 respirations/minuteBlood Pressure: 114/78 O2 Saturation: 99% Vital Signs performed by: Jodi Robles LPN, July 30, 2019 2:34 PMVital Signs performed by: Jodi Robles LPN, July 30, 2019 2:34 PMInitial Intake Information from: patientRoom #: 13Smoking, Tobacco, Vaping or Smoke Exposure StatusSmoke Status: former smokerTobacco Use: NoDo you vape? NoMenstrual HistoryLast Menstrual Period (LMP): ny possibility of ? YesComments: ablasionHealthcare HistorySince your last office visit...Have you been admitted to the hospital? NoHave you been to an emergency room (ER) or urgent care clinic? NoHave you seen another healthcare provider? Yes - urologyHave you seen a dentist? NoRate Your HealthIn general, would you say your health is? ExcellentPain AssessmentAre you currently having any pain which... You would like your provider to address? Yes Affects your activity level? YesInfectious Disease / Travel ScreeningRecent travel for you, your family, and/or any sexual partners? NoPain AssessmentPain ScaleNumeric Rating Scale: 6 / 10Location: in front area below rib cage on left sideDuration: chronicFrequency: DailyCharacter/Quality: burning, dull and pressureIs the pain radiating? NoScreening, Brief Intervention, & Referral to Treatment (SBIRT)Pre- Screening Questions How many times have you have 4 or more drinks in a day? 0How many times have you used an illegal drug or used a prescription medication for a non-medical reason? 0Performed by: Jodi Robles LPN, July 30, 2019 2:41 PMPatient History Social/Personal History: Chief Complainton going flank pain left side also pain in upper front on left side [id number] of Present Illness (HPI)34 YO female here for concerns of left upper quadrant pain. Pt states abdominal pain have been ongoing. Pt have had multiple ER visits and follows with Urologist. Pt states has upcoming procedure with her Urologist. HPI performed by: Mya THAKKAR, July 30, 2019 2:56 PMTransitions of Care InboundProblem ReviewProblem List was reviewed and/or updated during this visit.Medication Reconciliation & ReviewMedication List was reviewed and/or updated during this visit, including review of any qlvq-znd-bwoxnqp medications, herbal therapies, and/or supplements.Allergy ReviewAllergy List was reviewed and/or updated during this visit.Review of Systems General: Denies loss of appetite, chills, dizziness, fatigue, fever, continued fever, headache, feeling ill, sweats, night sweats, sleep disturbances, weight loss. Eyes: Denies blurring of vision, double vision, irritation, discharge, vision loss, eye pain, eye swelling, droopy eyelid, sensitivity to light, redness, itching. Ears/Nose/Throat: Denies earache, ear discharge, ringing in ears, decreased hearing, nasal congestion, nosebleeds, runny nose, sore throat, hoarseness, difficulty swallowing, dry mouth, tooth pain, bleeding gums, swollen glands. Cardiovascular: Denies chest pain, palpitations, feeling faint, trouble breathing w/exertion, SOB upon lying down, SOB at night, peripheral edema, elevated blood pressure, decreased heart rate. Respiratory: Denies cough, difficulty breathing, shortness of breath, excessive sputum, coughing up blood, wheezing, chest pain. Gastrointestinal: Complains of nausea, abdominal pain. Denies vomiting, bleeding, burning, itching, irritation, cramps, diarrhea, constipation, blood in stool, black or tarry stools, jaundice, heartburn, urge to defecate. Genitourinary: Denies urinary incontinence, pain with urination, burning with urination, urinary frequency, urinary hesitancy, urinary urgency, urinary urgency at night, incomplete emptying, blood in urine, pelvic pain. Mu sculoskeletal: Denies back pain, joint pain, leg pain, joint swelling, body aches, muscle aches, muscle cramps, muscle weakness, stiffness, recent injury. Skin: Denies rash, hives, redness, itching, dryness, nail changes, suspicious lesions, athlete's foot, rash on palms, rash on bottom of feet. Neurologic: Denies muscle impairment, weakness, numbness/tingling, seizures, slurred speech, feeling faint, tremors, vertigo, paralysis on one side, paralysis on both sides. Psychiatric: Denies depression, anxiety, memory loss, mental disturbance, suicidal ideation, homicidal ideation, hallucinations, paranoia, feeling stressed, hearing voices. Endocrine: Denies cold intolerance, heat intolerance, excessive thirst, excessive hunger, excessive urination, weight loss, weight gain. Physical ExamGeneral Appearance: well nourished, well hydrated, no acute distressEyes, External: conjunctivae and lids normal, EOMIRespiratory, Auscultation: clear to auscultation bilaterally; no rales, rhonchi, or wheezesRe spiratory, Effort: no intercostal retractions or use of accessory musclesCardiovascular, Auscultation: S1, S2 audible; no murmur, rub, or gallop; RRRPeripheral Circulation: no clubbing, cyanosis, edema, or varicositiesAbdomen: left upper quadrant tenderness on palpationGait & Station: normalSkin, Inspection: no rashes, lesions, or ulcerationsOrientation: oriented to time, place, and personMood & Affect: no depression, anxiety, or agitationJudgment & Insight: intactCare Management Plan Transitions of CareInboundRate Your HealthIn general, would you say your health is? ExcellentAssessment & Plan Problems:Added: Abdominal pain, left upper quadrant (ICD-789.02) (CSH29-Z48.12) Assessment: Instructions: We have ordered labs for you today. We will contact you if results are abnormal. Please keep your appointment for your scheduled procedure with urologist 08/03/2019. may continue medications as needed. may use moist heat as needed 3-4 times daily. continue zofran as needed for nausa and vomoting. please try to maintain a bland diet for now. Please try to maintain adequate intake of water.Assessed:Health Screening (ICD-V70.0) (CTG22-P53.9) Assessment: Instructions: We have ordered labs for you today. We will contact you if results are abnormal.Assessment not Saved Abdominal pain; left upper quadrant (LQH08-T40.12): Patient Instructions/Care Plan: Abdominal pain- left upper quadrant: We have ordered labs for you today. We will contact you if results are abnormal. Please keep your appointment for your scheduled procedure with urologist 08/03/2019. may continue medications as needed. may use moist heat as needed 3-4 times daily. continue zofran as needed for nausa and vomoting. please try to maintain a bland diet for now. Please try to maintain adequate intake of water.Health Screening: We have ordered labs for you today. We will contact you if results are abnormal. Plan developed in collaboration with patient and/or familyMedications:HYDROCODONE-ACETAMINOPHEN 5-325 MG ORAL TABLETLEXAPRO 10 MG ORAL TABLETAllergies:* PERTUSSIS VACCINE (Critical)Orders:CBC W/DIFF [CPT-15372] COMP METABOLIC PANEL [CPT-54649] Lipase [CPT-51422] Amylase [CPT-80861] 56171 - Venipuncture [CPT-58836] Adult - Ofc Vst, EST, Level III [CPT-32665] Follow-Up Return to clinic: as scheduled and as needed Additional Follow-Up: if severe pain please go to the hospital 911. Clinical Visit Summary Completed]Labs In-House Blood TestsDate/Time Collected: July 30, 2019 3:33 PMTest Result Reference Range Normal ValueComments: blood draw done in office, taken from right ac, tolerated well.Chloe Badillo, July 30, 2019 3:33 PM Name Value Range Interpretation Code Description Data Sun rce(s) Supporting Document(s) ID Date Data Source [id number] 07/21/2019 05:30:32 PM [facility] Measurements & CalculationsHeight: 64 inches (5 ft. 4 in.) 162.56 cm Weight: 170 pounds 77.27 kg Body Mass Index (BMI): 29.29BMI Interpretation: OverweightBody Surface Area (BSA): 1.83Weight Management Education Done (Nutrition/Physical Activity)Vital SignsTemperature: 97.3FPulse Rate: 70 beats/minuteRespiratory Rate: 18 respirations/minuteBlood Pressure: 130/84 Vital Signs performed by: Victorina Lieberman MA, July 21, 2019 5:35 PMInitial Intake Information from: patientSmoking, Tobacco, Vaping or Smoke Exposure StatusSmoke Status: former smokerTobacco Use: NoDo you vape? NoPassive Smoke Exposure: NoMenstrual HistoryAny possibility of ? NoHealthcare HistorySince your last office visit...Have you been admitted to the hospital? NoHave you been to an emergency room (ER) or urgent care clinic? No - kidney infectionEmergency room (ER) or urgent care date reported today: 06/30/2019Have you seen another healthcare provider? Yes - urology Have you seen a dentist? NoIntake performed by: Victorina Lieberman MA, July 21, 2019 5:32 PMRate Your HealthIn general, would you say your health is? ExcellentPain AssessmentAre you currently having any pain which... You would like your provider to address? Yes Affects your activity level? YesDepression Screening - PHQ-2Over the last two weeks, have you... Had little interest or pleasure in doing things? Not at all Been feeling down, depressed, or hopeless? Not at all PHQ-2 Score: 0Anxiety Screening - MICHAEL-2Over the last two weeks, have you been... Feeling nervous, anxious, or on edge? Not at all Unable to stop or control worrying? Not at all MICHAEL-2 Score: 0Infectious Disease / Travel ScreeningRecent travel for you, your family, and/or any sexual partners? NoPain AssessmentPain ScaleNumeric Rating Scale: 5 / 10Location: kidneysDuration: month Frequency: DailyCharacter/Quality: aching, sharp and stabbingScreening, Brief Intervention, & Referral to Treatment (SBIRT)Pre-Screening Questions How many times have you have 4 or more drinks in a day? 0How many times have you used an illegal drug or used a prescription medication for a non-medical reason? 0Performed by: Victorina Lieberman MA, July 21, 2019 5:33 PMPatient History Medical History:hx of depressionSurgical History:uterine ablationtubal ligation 2005Family History:mother-heart diseasecancer-lots of familySchizophrenia (Mother)Social/Personal History: Chief Complaintkidney stones History of Present Illness (HPI)Telemedicine visit with patient's location at [facility] and provider's location at offsite office. Additional person(s)participating in the visit: n/a. Pt here today for follow up after multiple ER visits for flank pain and kidney stones and multiple Urology appts. She is being treated with Tramadol for pain and states that she conitnues to have intermittent left flank pain but the pain has started to improve a bit. She has had 2 CTs done since her last vsiit which both show bilateral intrarenal calculi, unchanged from previous exam. She continues to see some blood in her urine as well. She will be having a cystoscopy on 08/03. She is still out of work until 07/26.HPI performed by: Dolly CRANE, July 21, 2019 5:39 PMTransitions of Care InboundProblem ReviewProblem List was reviewed and/or updated during this visit.Medication Reconciliation & ReviewMedication List was reviewed and/or updated during this visit, including review of any auue-mvi-ggkegiy medications, herbal therapies, and/or supplements.Allergy ReviewAllergy List was reviewed and/or updated during this visit.Adult Preventive CareProvider Calculated and Reviewed all Clinical Protocols for patient today. Labs/Meds/Other Counseling-Nutrition and Physical Activity:BMI Interpretation: Overweight (07/21/2019) Counseling: Done (07/21/2019) Physical Activity: Done (07/21/2019)Review of Systems General: Denies chills, fever, headache, feeling ill, sweats, night sweats, sleep disturbances. Genitourinary: Complains of see HPI, blood in urine. left flank painPsychiatric: Complains of paranoia. Denies depression, anxiety. Physical ExamGeneral Appearance: well nourished, well hydrated, no acute distressEyes, External: conjunctivae and lids normal, EOMIHearing: bilaterally [place]- wearing hearing aidsRespiratory, Effort: no intercostal retractions or use of accessory musclesG ait & Station: normalOrientation: oriented to time, place, and personMood & Affect: no depression, anxiety, or agitationJudgment & Insight: intactMemory: intact for recent and remote eventsCare Management Plan Transitions of CareInboundRate Your HealthIn general, would you say your health is? ExcellentAssessment & Plan Problems:Assessed:Kidney stone (ICD-592.0) (ICD10- N20.0) Assessment: Follows with uro, pain resolviing, having cysto in a few weeks. Instructions: Continue to follow up with urology as instructed.Mixed anxiety and depressive disorder (ICD-300.4) (OGE57-D36.8) Assessment: Symtpoms imptoved, CPM. Instructions: Continue Lexapro 10mg, call for refills.Patient Instructions/Care Plan: Kidney stone: Continue to follow up with urology as instructed.Mixed anxiety and depressive disorder: Continue Lexapro 10mg, call for refills. Plan developed in collaboration with patient and/or familyMedications:TRAMADOL HCL 50 MG ORAL TABLETLEXAPRO 10 MG ORAL TABLETAllerg ies:* PERTUSSIS VACCINE (Critical)Orders:Office Visit - Established, Level 3 [CPT-72388IE] Follow-Up Return to clinic: 6 weeks for follow up Clinical Visit Summary Completed] Name Value Range Interpretation Code Description Data Sun rce(s) Supporting Document(s) ID Date Data Source [id number] 07/15/2019 08:56:03 AM [facility] Measurements & CalculationsHeight: 64 inches (5 ft. 4 in.) 162.56 cm Weight: 169 pounds 6 oz. 76.99 kg Body Mass Index (BMI): 29.18BMI Interpretation: OverweightBody Surface Area (BSA): 1.82Vital SignsTemperature: 97.9F oral Pulse Rate: 72 beats/minuteRespiratory Rate: 17 respirations/minuteBlood Pressure: 116/76 right arm sitting automaticO2 Saturation: 100% room airVital Signs performed by: Maty Kirk LPN, July 15, 2019 9:08 AMVital Signs performed by: Radha ZAMBRANO, July 15, 2019 9:30 AMMultiple Vital SignsInitial BP: 132/98Vitals #2BP: 116/76 (primary)Performed by: Radha ZAMBRANO, July 15, 2019 9:32 AMLabs In-House Urine TestsDate/Time Collected: July 15, 2019 9:18 AMDate/Time Received: July 15, 2019 9:18 AMTest Result Reference Range Normal ValueRoutine Urinalysis Color: orange Yellow Appearance: clear Clear Leukocytes: negative Negative Nitrite: negative Negative Urobilinogen: 3.5 Negative Protein: negative Negative pH: 6.0 5.0-6.5 Blood: negative Negative Specific [place]: 1.020 1.020>=1.030 Ketone: negative Negative Bilirubin: negative Negative Glucose: negative NegativeMaty Kirk LPN, July 15, 2019 9:19 AMInitial Intake Information from: patientRoom #: 9Infectious Disease- Travel Have you or your sexual partner travelled outside of the country recently? NoSmoking, Tobacco or Smoke Exposure StatusSmoke Status: former smokerTobacco Use: NoPassive Smoke Exposure: NoPassive Smoke Exposure comments: outsideMenstrual HistoryComments: ablasionHealthcare HistorySince your last office visit...Have you been admitted to the hospital? NoHave you been to an emergency room (ER) or urgent care clinic? NoHave you seen another healthcare provider? NoHave you seen a dentist? NoIntake performed by: Maty Kirk LPN, July 15, 2019 9:02 AMRate Your HealthIn general, would you say your health is? ExcellentPain AssessmentAre you currently having any pain which... You would like your provider to address? Yes Affects your activity level? NoPain AssessmentPain ScaleNumeric Rating Scale: 6 / 10Location: kidneysDuration: monthCharacter/Quality: aching, burning, sharp and stabbingIs the pain radiating? NoScreening, Brief Intervention, & Referral to Treatment (SBIRT)Pre-Screening Questions How many times have you have 4 or more drinks in a day? 0How many times have you used an illegal drug or used a prescription medication for a non-medical reason? 0Performed by: Maty Kirk LPN, July 15, 2019 9:04 AMPatient History Medical History:hx of depressionSurgical History:uterine ablationtubal ligation 2005Family History:mother-heart diseasecancer-lots of familySchizophrenia (Mother)Social/Personal History: Smoking Status: former smokerChief ComplaintKidney issues. Infection in left kidney. History of Present Illness (HPI)34 yo female here for follow-up for left kidney infection and kidney stones. Pt was referred to Urology at previous visit, pt states urology stated she could not be seen until after she was off the antibiotics. Pt is currently out of work and is still experiencing left flank pain. Pt states she has still had blood in her urine recently and urine is very orange in morning. Pt has been off antibiotics and states urology still will not see her. HPI performed by: Radha ZAMBRANO, July 15, 2019 9:31 AMProblem ReviewProblem List was reviewed and/or updated during this visit.Medication Reconciliation & ReviewMedication List was reviewed and/or updated during this visit, including review of any rdqo-rlh-gedsmlm medications, herbal therapies, and/or supplements.Allergy ReviewAllergy List was reviewed and/or updated during this visit.Provider Calculated and Reviewed all Clinical Protocols for patient today. Review of Systems General: Denies chills, dizziness, fever, feeling ill. Cardiovascular: Denies chest pain, palpitations, feeling faint. Respiratory: Denies cough, shortness of breath, wheezing. Gastrointestinal: Complains of pain or discomfort. Denies nausea, vomiting, diarrhea, constipation, blood in stool, black or tarry stools. Genitourinary: Complains of blood in urine. Denies urinary incontinence, pain with urination, burning with urination, urinary frequency, urinary urgency, incomplete emptying, pelvic pain. Physical ExamGeneral Appearance: well nourished, well hydrated, no acute distress, appears somewhat uncomfortable sitting on exam tableRespiratory, Auscultation: clear to auscultation bilaterally; no rales, rhonchi, or wheezesCardiovascular, Auscultation: S1, S2 audible; no murmur, rub, or gallop; RRRPeripheral Circulation: no clubbing, cyanosis, edema, or varicositiesAbdomen: soft, non- tender, no masses, bowel sounds normal, left CVA mild tenderness to percussionGait & Station: normalSkin, Inspection: no rashes, lesions, or ulcerationsOrientation: oriented to time, place, and personMood & Affect: no de pression, anxiety, or agitationJudgment & Insight: intactRate Your HealthIn general, would you say your health is? ExcellentAssessment & Plan Problems:Added: Kidney stone (ICD-592.0) (FQZ87-J40.0) Assessment: Instructions: As above.Assessed:Renal colic (ICD-788.0) (XSY66-X54) Assessment: Instructions: Call urology for appointment now that infection has resolved. Urinalysis in the office today was negative, no indication for further urine culture or imaging from this office. As needed tramadol for severe pain, cautioned regarding constipation. Stay well hydrated. Please call or r eturn to the ER for worsening symptoms.Patient Instructions/Care Plan: Renal colic: Call urology for appointment now that infection has resolved. Urinalysis in the office today was negative, no indication for further urine culture or imaging from this office. As needed tramadol for severe pain, cautioned regarding constipation. Stay well hydrated. Please call or return to the ER for worsening symptoms.Kidney stone: As above. Plan developed in collaboration with patient and/or familyMedications:TRAMADOL HCL 50 MG ORAL TABLETLEXAPRO 10 MG ORAL TABLETAllergies:* PERTUSSIS VACCINE (Critical) Orders:Adult - Ofc Vst, EST, Level III [CPT-65815] Follow-Up Return to clinic: as needed Clinical Visit Summary CompletedVaccines Administered/Entered:Vaccination Group: InfluenzaSeries: 1 NOT GIVENVaccination: Flucelvax Quadrivalent PF (4y+) AdultReason Not Given: Patient decisionEntered Date: 07/15/2019 12:00 AMEntered by: Maty Kirk LPN Name Value Range Interpretation Code Description Data Sun rce(s) Supporting Document(s) ID Date Data Source [id number] 07/15/2019 08:56:03 AM EST [facility] Name Value Range Interpretation Code Description Data Sun rce(s) Supporting Document(s) APPEARANCE U clear [facility] BILIRUBIN UR negative [facility] BLOOD UR DIP negative [facility] GLUCOSE, URN negative [facility] KETONES URN negative [facility] NITRITE URN negative [facility] PH URINE 6.0 [facility] PROTEIN, URN negative [facility] SPEC GR URIN 1.020 [facility] UA COLOR orange [facility] UROBILINOGEN 3.5 [facility] WBC DIPSTK U negative [facility] ID Date Data Source [id number] 07/05/2019 10:17:34 AM EST [facility] Measurements & CalculationsHeight: 64 inches (5 ft. 4 in.) 162.56 cm Weight: 171.4 pounds 77.91 kg Body Mass Index (BMI): 29.53BMI Interpretation: OverweightBody Surface Area (BSA): 1.83Weight Management Education Done (Nutrition/Physical Activity)Vital SignsTemperature: 98.2FPulse Rate: 69 beats/minuteRespiratory Rate: 18 respirations/minuteBlood Pressure: 119/79 Vital Signs performed by: Victorina Lieberman MA, July 05, 2019 10:20 AMInitial Intake Information from: patientInfectious Disease- Travel Have you or your sexual partner travelled outside of the country recently? NoSmoking, Tobacco or Smoke Exposure StatusSmoke Status: former smokerTobacco Use: NoPassive Smoke Exposure: NoMenstrual HistoryAny possibility of ? NoHealthcare HistorySince your last office visit...Have you been admitted to the hospital? NoHave you been to an emergency room (ER) or urgent care clinic? Yes - kidney infectionEmergency r oom (ER) or urgent care date reported today: 06/30/2019Have you seen another healthcare provider? NoHave you seen a dentist? NoIntake performed by: Victorina Lieberman MA, July 05, 2019 10:19 AMRate Your HealthIn general, would you say your health is? ExcellentPain AssessmentAre you currently having any pain which... You would like your provider to address? No Affects your activity level? NoDepression Screening - PHQ-2Over the last two weeks, have you... Had little interest or pleasure in doing things? Not at all Been feeling down, depressed, or hopeless? Not at all PHQ-2 Score: 0Anxiety Screening - MICHAEL-2Over the last two weeks, have you been... Feeling nervous, anxious, or on edge? Not at all Unable to stop or control worrying? Not at all MICHAEL-2 Score: 0Infectious Disease- Travel Cont. Any possibility of ? NoScreening, Brief Intervention, & Referral to Treatment (SBIRT)Pre-Screening Questions How many times have you have 4 or more drinks in a day? 0How many times have you used an illegal drug or used a prescription medication for a non- medical reason? 0Performed by: Victorina Lieberman MA, July 05, 2019 10:19 AMPatient History Medical History:hx of depressionSurgical History:uterine ablationtubal ligation 2005Family History:mother-heart diseasecancer-lots of familySchizophrenia (Mother)Social/Personal History: Smoking Status: former smokerChief Complainter f/u kidney infection History of Present Illness (HPI)Telemedicine visit with patient's location at [facility] and provider's location at offsite office. Additional person(s)participat ing in the visit: n/a. Pt here today for follow up after multiple ER visits for flank pain and kidney stones and a Urology appt. She is being treated with Tramadol for pain and states that she conitnues to have intermittent left flank pain. She has had 2 CTs done since her last vsiit which both show bilateral intrarenal calculi, unchanged from previous exam. She also saw the urologist who said her urinary culture is negative. She continues to have some intermittent left flank pain, UA shows some blood and amorphous sediment as well. She has continued to have to stay home from work due to pain and nausea. Has Tramadol and zofran from her ER visit left.HPI performed by: Dolly CRANE, July 05, 2019 10:44 AMTransitions of Care InboundProblem ReviewProblem List was reviewed and/or updated during this visit.Medication Reconciliation & ReviewMedication List was reviewed and/or updated during this visit, including review of any tdue-box-thjgxkh medications, herbal therapies, and/or supplements.Allergy ReviewAllergy List was reviewed and/or updated during this visit.Adult Preventive CareProvider Calculated and Reviewed all Clinical Protocols for patient today. Labs/Meds/Other Counseling-Nutrition and Physical Activity:BMI Interpretation: Overweight (07/05/2019) Counseling: Done (07/05/2019) Physical Activity: Done (07/05/2019)Review of Systems General: Denies chills, fever, headache, feeling ill, sweats, night sweats. Cardiovascular: Denies chest pain, palpitations, feeling faint, trouble breathing w/exertion. Respiratory: Denies cough, difficulty breathing, shortness of breath, wheezing. Gastrointestinal: Complains of nausea, vomiting. Denies diarrhea, constipation, abdominal pain. Genitourinary: Denies urinary incontinence, pain with urination, burning with urination, urinary frequency, urinary hesitancy, urinary urgency, pelvic pain. Musculoskeletal: Complains of see HPI, back pain. Psychiatric: Complains of anxiety, feeling stressed. Denies depression. Physical ExamGeneral Appearance: well nourished, well hydrated, no acute distressEyes, External: conjunctivae and lids normal, EOMIRespiratory, Auscultation: clear to auscultation bilaterally; no rales, rhonchi, or wheezesRespiratory, Effort: no intercostal retractions or use of accessory musclesCardiovascular, Auscultation: S1, S2 audible; no murmur, rub, or gallop; RRRPeripheral Circulation: no clubbing, cyanosis, edema, or varicositiesGait & Station: normalBack: unable to examine for CVA tenderness due to telemed visitOrientation: oriented to time, place, and personMood & Affect: no depression, anxiety, or agitationJudgment & Insight: intactMemory: intact for recent and remote eventsCare Management Plan Transitions of CareInboundRate Your HealthIn general, would you say your health is? ExcellentAssessment & Plan Problems:Assessed:Renal colic (ICD-788.0) (RGZ95-S42) Assessment: Instructions: Continue Tramadol as needed as as well as Zofran for nausea. Please call the clinic and leave message with my nurse if you have not seen any improvement in symptoms by 2/.Renal colic (ICD-788.0) (PLC15-Q57) Assessment: Continues with pain and nausea. CPM with tramadol as needed and zofran per ED. Has had follow up with urology, cult neg. UA still shows some blood and amorphous sediment c/w stones. ADvised to go to ED or call 911 with icnreased pain, fevers, problems with urination. Pt to follow up with uro.Patient Instructions/Care Plan: Renal colic: Continue Tramadol as needed as as well as Zofran for nausea. Please call the clinic and leave message with my nurse if you have not seen any improvement in symptoms by 2/. Plan developed in collaboration with patient and/or familyMedications:TRAMADOL HCL 50 MG ORAL TABLETLEXAPRO 10 MG ORAL TABLETMedication Changes:Removed:IBUPROFEN 800 MG ORAL TABLET-1 tab by mouth three times per day as needed for pain, DRISDOL 35956 UNIT ORAL CAPSULE-Take 1 capsule weeklyAllergies:* PERTUSSIS VACCINE (Critical)Orders:Office Visit - Established, Level 3 [CPT-59838UZ] Follow-Up Return to clinic: Jul 21 for follow up Clinical Visit Summary Completed Name Value Range Interpretation Code Description Data Sun rce(s) Supporting Document(s) ID Date Data Source [id number] 06/23/2019 12:22:10 PM [facility] Measurements & CalculationsHeight: 64 inches (5 ft. 4 in.) 162.56 cm Weight: 172 pounds 78.18 kg Body Mass Index (BMI): 29.63BMI Interpretation: OverweightBody Surface Area (BSA): 1.84Weight Management Education Done (Nutrition/Physical Activity)Vital SignsTemperature: 98.4F oral Pulse Rate: 84 beats/minuteRespiratory Rate: 16 respirations/minuteBlood Pressure: 126/82 right arm sitting automaticO2 Saturation: 96% Vital Signs performed by: Suzanna Ruiz LPN, June 23, 2019 12:25 PMInitial Intake Information from: patientRoom #: 10Infectious Disease- Travel Have you or your sexual partner travelled outside of the country recently? NoSmoking, Tobacco or Smoke Exposure StatusSmoke Status: former smokerPassive Smoke Exposure: NoMenstrual HistoryLast Menstrual Period (LMP): 03/18/2013ny possibility of ? YesHealthcare HistorySince your last office visit...Have you been admitted to the hospital? NoHave you been to an emergency room (ER) or urgent care clinic? Yes - kidney infectionEmergency room (ER) or urgent care date reported today: 06/15/2019Have you seen another healthcare provider? NoHave you seen a dentist? NoIntake performed by: Suzanna Ruiz LPN, June 23, 2019 12:25 PMRate Your HealthIn general, would you say your health is? ExcellentPain AssessmentAre you currently having any pain which... You would like your provider to address? Yes Affects your activity level? YesDepression Screening - PHQ-2Over the last two weeks, have you... Had li ttle interest or pleasure in doing things? Not at all Been feeling down, depressed, or hopeless? Not at all PHQ-2 Score: 0Anxiety Screening - MICHAEL-2Over the last two weeks, have you been... Feeling nervous, anxious, or on edge? Not at all Unable to stop or control worrying? Not at all MICHAEL-2 Score: 0Infectious Disease- Travel Cont. Any possibility of ? YesPain AssessmentPain ScaleNumeric Rating Scale: 6 / 10Location: kidneysDuration: 1 monthFrequency: DailyCharacter/Quality: aching and dullIs the pain radiating? NoScreening, Brief Intervention, & Referral to Treatment (SBIRT)Pre-Screening Questions How many times have you have 4 or more drinks in a day? 0How many times have you used an illegal drug or used a prescription medication for a non- medical reason? 0Performed by: Suzanna Ruiz LPN, June 23, 2019 12:28 PMPatient History Medical History:hx of depressionSurgical History:uterine ablationtubal ligation 2005Family History:mother-heart diseasecancer-lots of familySchizophrenia (Mother)Social/Personal History: Smoking Status: former smokerChief Complaintf/u kidney stoneHistory of Present Illness (HPI)Telemedicine visit with patient's location at [facility] and provider's location at offsite office. Additional person(s)participating in the visit: n/a. Pt here today for follow up after multiple ER visits for flank pain and kidney stones and a Urology appt. She is being treated with Tramadol for pain and states that she conitnues to have intermittent left flank pain. She has had 2 CTs done since her last vsiit which both show bilateral intrarenal calculi, unchanged from previous exam. She was treated for a UTI as well and has 3 more days of cefdenir to finish. She saw urology who instructed her to finish the abx and come back in 3 weeks for follow up.She has missed work starting on 06/15 and is still currently out. SHe will require a note for work.HPI performed by: Dolly CRANE, June 23, 2019 12:33 PMTransitions of Care InboundProblem ReviewProblem List was reviewed and/or updated during this visit.Medication Reconciliation & ReviewMedication List was reviewed and/or updated during this visit, including review of any ttzs-pmr-tleeevw medications, herbal therapies, and/or supplements.Allergy ReviewAllergy List was reviewed and/or updated during this visit.Adult Preventive CareProvider Calculated and Reviewed all Clinical Protocols for patient today. Labs/Meds/Other Counseling-Nutrition and Physical Activity:BMI Interpretation: Overweight (06/23/2019) Counseling: Done (06/23/2019) Physical Activity: Done (06/23/2019)Review of Systems General: Denies chills, fever, headache, feeling ill, sweats. Musculoskeletal: Complains of see HPI, back pain. Physical ExamGeneral Appearance: well nourished, well hydrated, no acute distressEyes, External: conjunctivae and lids normal, EOMIHearing: bilaterally TONAWANDA- wearing hearing aidsRespiratory, Effort: no intercostal retractions or use of accessory musclesGait & Station: normalOrientation: oriented to time, place, and personMood & Affect: no depression, anxiety, or agitationJudgment & Insight: intactMemory: intact for recent and remote eventsCare Management Plan Transiti ons of CareInboundRate Your HealthIn general, would you say your health is? ExcellentAssessment & Plan Problems:Assessed:Renal colic (ICD-788.0) (JSU89-I26) Assessment: Instructions: Continue with pain meds and antibiotics and follow up with urology as instructed.Renal colic (ICD-788.0) (CCA24-U33) Assessment: Still with resolving symptoms, continue Tramadol and abx for now, pt to follow up with uro in 3 weeks. Instructions: Continue with pain meds and antibiotics and follow up with urology as instructed.Patient Instructions/Care Plan: Renal colic: Continue with pain meds and antibiotics and follow up with urology as instructed.Renal colic: Continue with pain meds and antibiotics and follow up with urology as instructed. Please bring back paperwork and I will fill it out for you.Plan developed in collaboration with patient and/or familyMedications:TRAMADOL HCL 50 MG ORAL TABLETIBUPROFEN 800 MG ORAL TABLETLEXAPRO 10 MG ORAL TABLETDRISDOL 83464 UNIT ORAL CAPSULEMedication Antonina nges:Removed:MACROBID 100 MG ORAL CAPSULE-1 capsule by mouth twice per day, FLOMAX 0.4 MG ORAL CAPSULE-1 capsule by mouth every dayAllergies:* PERTUSSIS VACCINE (Critical)Orders:Office Visit - Established, Level 3 [CPT-66074HH] Follow-Up Return to clinic: 4-6 weeks for follow up Clinical Visit Summary Completed Name Value Range Interpretation Code Description Data Sun rce(s) Supporting Document(s) ID Date Data Source [id number] 06/11/2019 11:01:56 AM EST [facility] In-House Blood TestsDate/Time Colle cted: June 11, 2019 11:02 AMTest Result Reference Range Normal ValueComments: blood draw done in offcie done in the left ac tolerated well Nasir Gupta MA, June 11, 2019 11:02 AMAssessment & Plan Orders:[id number] Vst-Est Level I [CPT-71133] 02150 - Venipuncture [CPT-66105] Name Value Range Interpretation Code Description Data Sun rce(s) Supporting Document(s) ID Date Data Source [id number] 06/11/2019 10:30:00 AM EST [facility] Name Value Range Interpretation Code Description Data Sun rce(s) Supporting Document(s) BG FASTING 81 mg/dL 70-100 N [facility] TSH 1.250 microintl units/mL 0.358-3.740 N [facility] VIT D25 TOT 14.9 ng/mL 30.0-100.0 L [facility] ID Date Data Source [id number] 06/11/2019 10:30:00 AM [facility] Name Value Range Interpretation Code Description Data Sun rce(s) Supporting Document(s) HGBA1C 4.5 % N [facility] ID Date Data Source [id number] 06/11/2019 10:30:00 AM [facility] Name Value Range Interpretation Code Description Data Sun rce(s) Supporting Document(s) HCT 43.5 % 36.0-47.0 [facility] HGB 14.5 g/dL 12.0-15.5 [facility] MCH 33.3 G/DL pg 32.0-36.5 N [facility] MCHC 30.9 PG % 27.0-33.0 [facility] PLATELETS 241 10 10*3/mm3 150-450 N [facility] RBC 4.70 10 10*6/mm3 4.00-5.40 N [facility] RDW 13.2 % 11.5-14.5 [facility] WBC TOTAL 6.9 4.0-10.0 N [facility] ID Date Data Source [id number] 06/11/2019 10:00:00 AM [facility] Name Value Range Interpretation Code Description Data Sun rce(s) Supporting Document(s) URINECULTRTN CEFEPIME IV 2 gm q12h <=1 S Partial results. Deprecated. Retained on ly for backward compatibility as of V2.6. [facility] ID Date Data Source [id number] 06/11/2019 10:00:00 AM EST [facility] Name Value Range Interpretation Code Description Data Sun rce(s) Supporting Document(s) APPEARANCE U CLOUDY CLEAR H [facility] SPEC GR URIN 1.015 1.002-1.035 N [facility] UA COLOR YELLOW YELLOW N [facility] ID Date Data Source [id number] 06/11/2019 09:48:48 AM [facility] Measurements & CalculationsHeight: 64 inches (5 ft. 4 in.) 162.56 cm Weight: 176 pounds 80 kg Body Mass Index (BMI): 30.32BMI Interpretation: ObeseBody Surface Area (BSA): 1.85Weight Management Education Done (Nutrition/Physical Activity)Vital SignsTemperature: 98.0FPulse Rate: 88 beats/minuteRespiratory Rate: 17 respirations/minuteBlood Pressure: 119/83 O2 Saturation: 96% Vital Signs performed by: Tia Knott MA, June 11, 2019 10:11 AMInitial Intake Information from: patientRoom #: 12Infectious Disease- Travel Have you or your sexual partner travelled outside of the country recently? NoSmoking, Tobacco or Smoke Exposure StatusSmoke Status: former smokerTobacco Use: NoPassive Smoke Exposure: NoMenstrual HistoryLast Menstrual Period (LMP): 03/18/2013Comments: ablasionHealthcare HistorySince your last office visit...Have you been admitted to the hospital? NoHave you been to an emergency room (ER) or urgent care clinic? NoHave you seen another healthcare provider? NoHave you seen a dentist? NoIntake performed by: Tia Knott MA, June 11, 2019 10:01 AMPain AssessmentAre you currently having any pain which... You would like your provider to address? Yes Affects your activity level? YesDepression Screening - PHQ-2Over the last two weeks, have you... Had little interest or pleasure in doing things? Not at all Been feeling down, depressed, or hopeless? Not at all PHQ-2 Score: 0Anxiety Screening - MICHAEL-2Over the last two weeks, have you been... Feeling nervous, anxious, or on edge? More than half the days Unable to stop or control worrying? More than half the days MICHAEL-2 Score: 4Generalized Anxiety Disorder 7-Item Screening (MICHAEL- 7)Answer Guide:0 = Not at all1 = Several days2 = Over half the days3 = Nearly every dayOver the last 2 weeks, how often have you been bothered by the following problems?Feeling nervous, anxious, or on edge: 2Not being able to stop or control worryinWorrying too much about different things: 2Trouble relaxinBeing so restless that it's hard to sit still: 0Becoming easily annoyed or irritable: 0Feeling afraid as if something awful might happen: 0Answer Guide:0 = Not difficult at all1 = Somewhat difficult2 = Very difficult3 = Extremely difficultHow difficult have these made it for you to do your work, take care of things at home, or get along with other people? 1GAD-7 Screening Results MICHAEL-2 Score: 4GAD-7 Score: 9Functional Impairment: Somewhat difficultRecommendation: Mild anxietyPain AssessmentPain ScaleNumeric Rating Scale: 5 / 10Location: low back (Kidney)Duration: 2 weeksFrequency: DailyCharacter/Quality: dullIs the pain radiating? NoPRAPARE Sociodemographic Characteristics Race: White Ethnicity: Not or Preferred Language: EnglishFamily and Home Address: [address] [place] [address] What is your housing situation today? I have housing Are you worried about losing your housing? NoMoney and Resources What is the highest level of school that you have finished? associate's degree Employed? Yes Your current work situation? FT Insurance: [employer] BCBSIn the past year, have you or any family members you live with been unable to get any of the following when it was really needed? 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 NoSocial and Emotional Health How often do you see or talk to people that you care about and feel close to? More than 5 times a week How stressed are you? Not at allAdditional Optional Domains In the past 3 months, have you spent more than 2 nights in a row in a [place] [facility] [place], [facility], nursing home center or juvenile correctional facility? No Has lack of transportation kept you from medical appointments or from getting your medications? NoIn the past year, have you had trouble getting any of the following when it was really needed (check all that apply)?noneIn the past year, have you had trouble paying the costs associated with health care or medicine (such as co-payments, costs for services, prices of medicines)? NoHow confident are you that you can control and manage most of your health problems? Very confident Are you a refugee? No (Country of origin: [facility]) Do you feel physically and emotionally safe where you live? Yes In the past year, have you been afraid of a partner, ex-partner? NoScreening, Brief Intervention, & Referral to Treatment (SBIRT)Pre-Screening Questions How many times have you have 4 or more drinks in a day? 0How many times have you used an illegal drug or used a prescription medication for a non-medical reason? 0Performed by: Tia orozco MA, June 11, 2019 10:07 AMPatient History Medical History:hx of depressionSurgical History:uterine ablationtubal ligation 2005Family History:mother-heart diseasecancer-lots of familySchizophrenia (Mother)Social/Personal History: Smoking Status: former smokerChief Complaintannual examHistory of Present Illness (HPI)Telemedicine visit with patient's location at [facility] and provider's location at offsite office. Additional person(s)participating in the visit: n/a. Pt has not been seen in over a year. Pt presents today with requests for medication refills and with c/o "kidney pain." She states that she has been experiencing left flank pain, that started a few weeks ago. She has hx of kidney stones in 2009 in the past, for which she had lithotripsy. She states that she feels like this pain is very similar to when she had these stones. She has noticed some blood in her urine. She has been taking Ibuprofen for pain, the pain is intermittent.She also c/o anxiety and depression symptoms, has been out of her Lexapro for awhile and wants to take it again. GAD7 score reviewed with pt.HPI performed by: Dolly Lloyd ANP, June 11, 2019 10:13 AMProblem ReviewProblem List was reviewed and/or updated during this visit.Medication Reconciliation & ReviewMedication List was reviewed and/or updated during this visit, including review of any qxhx-lvm-wlbsikb medications, herbal therapies, and/or supplements.Allergy ReviewAllergy List was reviewed and/or updated during this visit.Adult Preventive CareProvider Calculated and Reviewed all Clinical Protocols for patient today. Labs/Meds/Other Counseling-Nutrition and Physical Activity:BMI Interpretation: Obese (06/11/2019) Counseling: Done (06/11/2019) Physical Activity: Done (06/11/2019)Review of Systems General: Denies chills, fever, headache, feeling ill, sweats. Musculoskeletal: Complains of see HPI, back pain. Psychiatric: Complains of anxiety, feeling stressed. Denies depression. Physical ExamGeneral Appearance: well nourished, well hydrated, no acute distressEyes, External: conjunctivae and lids normal, EOMIHearing: bilaterally TONAWANDA- wearing hearing aidsRespiratory, Effort: no intercostal retr actions or use of accessory musclesGait & Station: normalBack: unable to examine for CVA tenderness due to telemed visitOrientation: oriented to time, place, and personMood & Affect: no depression, anxiety, or agitationJudgment & Insight: intactMemory: intact for recent and remote eventsAssessment & Plan Problems:Added: Health Screening (ICD-V70.0) (LEM34-J91.9)Renal colic (ICD- 788.0) (WWV32-R83) Assessment: Instructions: You have had blood work or a urine sample taken today. We will notify you within 7 days of any abnormal results. If everything is normal, you will not hear from us. You can check the portal or call if you want as well. Your prescriptions have been sent to your preferred pharmacy electronically, please take them as prescribed and report any significant side effects. I have ordered a test to be done at [facility]. We will notify you of any abnormal results. If you do not hear from us, please call or make an appointment for test results. The nurse will call you to set this up.Renal colic (ICD-788.0) (TZD53-M44) Assessment: Has hx of stones and lithotripsy. Will get CT, start FLomax, Ibuprofen for pain. Labs ordered.Changed:From: Dx of depression (ICD-311) (AAK09-P86.9) To: Mixed anxiety and depressive disorder (ICD-300.4) (POR42-X76.8)Assessed:Mixed anxiety and depressive disorder (ICD-300.4) (XWL02-I89.8) Assessment: Instructions: Your prescriptions have been sent to your preferred pharmacy electronically, please take them as prescribed and report any significant side effects.Mixed anxiety and depressive disorder (ICD-300.4) (LIQ91-D79.8) Assessment: Restart Lexapro 10mg. Doesn't want to restart therapy right now. RTC in 4-6 weeks for follow up.Patient Instructions/Care Plan: Renal colic: You have had blood work or a urine sample taken today. We will notify you within 7 days of any abnormal results. If everything is normal, you will not hear from us. You can check the portal or call if you want as well. Your prescriptions have been sent to your preferred pharmacy electronically, please take them as prescribed and report any significant side effects. I have ordered a test to be done at [facility]. We will notify you of any abnormal results. If you do not hear from us, please call or make an appointment for test results. The nurse will call you to set this up.Mixed anxiety and depressive disorder: Your prescriptions have been sent to your preferred pharmacy electronically, please take them as prescribed and report any significant side effects. Plan developed in collaboration with patient and/or familyMedications:IBUPROFEN 800 MG ORAL TABLETFLOMAX 0.4 MG ORAL CAPSULELEXAPRO 10 MG ORAL TABLETDRISDOL 64362 UNIT ORAL CAPSULEMedication Changes:Refilled:LEXAPRO 10 MG ORAL TABLET-1 tab by mouth every day Qty: 30[Tablet] Refills: 2 Method: ElectronicNew Prescription:FLOMAX 0.4 MG ORAL CAPSULE-1 capsule by mouth every day Qty: 14[Capsule] Refills: 0 Method: ElectronicIBUPROFEN 800 MG ORAL TABLET-1 tab by mouth three times per day as needed for pain Qty: 90[Tablet] Refills: 0 Method: ElectronicAllergies:* PERTUSSIS VACCINE (Critical)Orders:COMP METABOLIC PANEL [CPT-90166] CBC W/DIFF [CPT-41599] HgBA1c [CPT-18783] LIPID PANEL [CPT-38453] TSH [CPT-07590] Vitamin D 250H Unspecified [CPT-74616] URINALYSIS [CPT-15045] Urine Culture [CPT-05717] CT ABDOMEN & PELVIS W/O CONTRAST MATERIAL [CPT-50802] Office Visit - Established, Level 3 [CPT-14304DD] Follow-Up Return to clinic: in 4-6 week for physical exam and follow up Clinical Visit Summary CompletedMedications:LEXAPRO 10 MG ORAL TABLET (ESCITALOPRAM OXALATE) 1 tab by mouth every day #30[Tablet] x 2 Route:ORAL Entered and Authorized by: Dolly CRANE Method used: Electronically to [facility]* (retail) [id number] [place] [address] Fax: Note to Pharmacy: Route: ORAL; RxID: [id number] 800 MG ORAL TABLET (IBUPROFEN) 1 tab by mouth three times per day as needed for pain #90[Tablet] x 0 Route:ORAL Entered and Authorized by: Dolly CRANE Method [facility]: [facility] (retail) [id number] [place] [address] Note to Pharmacy: Route: ORAL; RxID: [id number] 0.4 MG ORAL CAPSULE (TAMSULOSIN HCL) 1 capsule by mouth every day #14[Capsule] x 0 Route:ORAL Entered and Authorized by: Dolly CRANE Method used: Electronically to [facility] (retail) [address] [place] [address] Note to Pharmacy: Route: ORAL; RxID: [id number] Administered/Entered:Vaccination Group: H1N1 InfluenzaSeries: 1 NOT GIVENVaccination: Influenza A (H1N1) Monoval PF Intramuscular SuspensionReason Not Given: Patient decisionEntered Date: 06/11/2019 12:00 AMComments: pt refusedEntered by: Tia Knott MA Electr onically signed by Dolly CRANE on 06/11/2019 at 1:07 PM Name Value Range Interpretation Code Description Data Sun rce(s) Supporting Document(s) Procedure Social History Code Duration Value Status Description Data Source(s ) Smoking 04/07/2020 12:00:00 AM EDT Patient has never smoked co mpleted Patient has never smoked [facility] ([facility]) Vital Signs ID Date Data Source UNK Name Value Range Interpretation Code Description Data Source(s) Body temperature 97.7 [degF] 97.7 [degF] [facility] ([facility]) Body weight 87.545 kg 87.545 kg [facility] Body mass index (BMI) [Ratio] 33.1 kg/m2 33.1 k g/m2 [facility] ([facility]) Heart rate 69 /min 69 /min [facility]) Diastolic blood pressure 72 mm[Hg] 72 mm[Hg] [facility] ([facility]) Systolic blood pressure 125 mm[Hg] 125 mm[Hg] M EDENT ([facility]) Body weight 193.00 [lb_av] 193.00 [lb_av] MEDEN T ([facility]) Body height 64 [in_i] 64 [in_i] [facility] 5'4" Body surface area Derived from formula 1.93 m2 1.93 m2 [facility] ([facility]) Body mass index (BMI) [Ratio] 33.1 kg/m2 33.1 k g/m2 [facility] ([facility]) Body height 64 [in_i] 64 [in_i] [facility] ([facility]) 5'4" Body weight 87.545 kg 87.545 kg [facility] ([facility]) Body weight 193.00 [lb_av] 193.00 [lb_av] MEDEN T ([facility]) Body temperature 96.9 [degF] 96.9 [degF] [facility] ([facility]) Heart rate 80 /min 80 /min MEDENT ([facility]) Diastolic blood pressure 80 mm[Hg] 80 mm[Hg] MEDENT ([facility]) Systolic blood pressure 108 mm[Hg] 108 mm[Hg] M EDENT ([facility]) Body surface area Derived from formula 1.92 m2 1.92 m2 [facility] ([facility]) Body mass index (BMI) [Ratio] 32.8 kg/m2 32.8 k g/m2 MEDENT ([facility]) Body height 64 [in_i] 64 [in_i] MEDENT ([facility]) 5'4" Body weight 86.581 kg 86.581 kg MEDENT ([facility]) Body weight 190.88 [lb_av] 190.88 [lb_av] MEDEN T ([facility]) Body temperature 96.9 [degF] 96.9 [degF] MEDENT ([facility]) Heart rate 82 /min 82 /min MEDENT ([facility]) Diastolic blood pressure 82 mm[Hg] 82 mm[Hg] MEDENT ([facility]) Systolic blood pressure 122 mm[Hg] 122 mm[Hg] M EDENT ([facility]) Body surface area Derived from formula 1.91 m2 1.91 m2 [facility] ([facility]) Body mass index (BMI) [Ratio] 32.3 kg/m2 32.3 k g/m2 [facility] ([facility]) Body height 64 [in_i] 64 [in_i] [facility] 5'4" Body weight 85.447 kg 85.447 kg MEDENT ([facility]) Body weight 188.38 [lb_av] 188.38 [lb_av] MEDEN T ([facility]) Oxygen saturation in Arterial blood by Pulse oximetry 97 % 97 % [facility]) Respiratory rate 16 /min 16 /min [facility] ( [facility]) Body temperature 97.9 [degF] 97.9 [degF] MEDENT ([facility]) Heart rate 82 /min 82 /min [facility]) Diastolic blood pressure 80 mm[Hg] 80 mm[Hg] [facility] ([facility]) Systolic blood pressure 112 mm[Hg] 112 mm[Hg] M [facility] Body mass index (BMI) [Ratio] 32.6 kg/m2 32.6 k g/m2 [facility]) Body height 64 [in_i] 64 [in_i] [facility] ([facility], [facility]) 5'4" Body weight 190.00 [lb_av] 190.00 [lb_av] MEDEN T ([facility], [facility]) Body temperature 98.4 [degF] 98.4 [degF] MEDENT ([facility], [facility]) Oxygen saturation in Arterial blood by Pulse oximetry 98 % 98 % MEDENT ([facility], [facility]) Respiratory rate 16 /min 16 /min MEDENT ( [facility], [facility]) Heart rate 95 /min 95 /min MEDENT ([facility], [facility]) Diastolic blood pressure 78 mm[Hg] 78 mm[Hg] MEDENT ([facility]) Systolic blood pressure 117 mm[Hg] 117 mm[Hg] M EDENT ([facility]) Diastolic blood pressure 72 mm[Hg] 72 mm[Hg] eCW1 ([facility]) Systolic blood pressure 110 mm[Hg] 110 mm[Hg] e CW1 ([facility]) Body mass index (BMI) [Ratio] 33.9 kg/m2 33.9 k g/m2 eCW1 ([facility]) Body height [in_i] eCW1 ([facility]) Body weight 86.82 kg 86.82 kg eCW1 ([facility]) Body weight 191.4 [lb_av] 191.4 [lb_av] eCW1 ([facility]) Body weight 3062 [oz_av] 3062 [oz_av] CHAO ([facility]) Systolic blood pressure 123 mm[Hg] 123 mm[Hg] A THENA ([facility]) Body mass index (BMI) [Ratio] 32.8 kg/m2 32.8 k g/m2 CHAO ([facility]) Body height 64 [in_i] 64 [in_i] CHAO ([facility]) Diastolic blood pressure 86 mm[Hg] 86 mm[Hg] CHAO ([facility]) Body weight 3010.08 [oz_av] 3010.08 [oz_av] ATH MERCEDES ([facility]) Systolic blood pressure 123 mm[Hg] 123 mm[Hg] A THENA ([facility]) Body height 64 [in_i] 64 [in_i] CHAO ([facility]) Diastolic blood pressure 85 mm[Hg] 85 mm[Hg] CHAO ([facility]) Systolic blood pressure 116 mm[Hg] 116 mm[Hg] e CW1 ([facility]) Body mass index (BMI) [Ratio] 33.19 kg/m2 33.19 kg/m2 W1 ([facility]) Body height [in_i] eCW1 ([facility]) Body weight 187.4 [lb_av] 187.4 [lb_av] eCW1 ([facility]) Diastolic blood pressure 74 mm[Hg] 74 mm[Hg] eCW1 ([facility]) Diastolic blood pressure 82 mm[Hg] 82 mm[Hg] eCW1 ([facility]) Systolic blood pressure 128 mm[Hg] 128 mm[Hg] e CW1 ([facility]) Body mass index (BMI) [Ratio] 32.63 kg/m2 32.63 kg/m2 eCW1 ([facility]) Body height [in_i] eCW1 ([facility]) Body weight 184.2 [lb_av] 184.2 [lb_av] eCW1 ([facility]) Diastolic blood pressure 68 mm[Hg] 68 mm[Hg] eCW1 ([facility]) Systolic blood pressure 118 mm[Hg] 118 mm[Hg] e CW1 ([facility]) Body mass index (BMI) [Ratio] 32.52 kg/m2 32.52 kg/m2 eCW1 ([facility]) Body height [in_us] eCW1 ([facility]) Body weight Measured 183.6 [lb_av] 183.6 [lb_av ] eCW1 ([facility]) Body weight 2856 [oz_av] 2856 [oz_av] CHAO ([facility]) Systolic blood pressure 126 mm[Hg] 126 mm[Hg] A [facility] ([facility]) Body height 64 [in_i] 64 [in_i] CHAO ([facility]) Diastolic blood pressure 82 mm[Hg] 82 mm[Hg] CHAO ([facility]) Body weight 2882.08 [oz_av] 2882.08 [oz_av] ATH MERCEDES ([facility]) Systolic blood pressure 119 mm[Hg] 119 mm[Hg] A [facility] ([facility]) Body height 64 [in_i] 64 [in_i] CHAO ([facility]) Diastolic blood pressure 81 mm[Hg] 81 mm[Hg] CHAO ([facility]) Body weight 2726.08 [oz_av] 2726.08 [oz_av] ATH MERCEDES ([facility]) Systolic blood pressure 118 mm[Hg] 118 mm[Hg] A THENA ([facility]) Body height 64 [in_i] 64 [in_i] CHAO ([facility]) Diastolic blood pressure 78 mm[Hg] 78 mm[Hg] CHAO ([facility]) Body weight 2720 [oz_av] 2720 [oz_av] CHAO ([facility]) Systolic blood pressure 121 mm[Hg] 121 mm[Hg] A THEN ([facility]) Body height 64 [in_i] 64 [in_i] CHAO ([facility]) Diastolic blood pressure 79 mm[Hg] 79 mm[Hg] CHAO ([facility]) Diastolic blood pressure 62 mm[Hg] 62 mm[Hg] eCW1 ([facility]) Systolic blood pressure 112 mm[Hg] 112 mm[Hg] e CW1 ([facility]) Body temperature 96.4 [degF] 96.4 [degF] eCW1 ( [facility]) Respiratory rate 18 /min 18 /min eCW1 ([facility]) Heart rate 94 /min 94 /min eCW1 ([facility]) Body mass index (BMI) [Ratio] 29.76 kg/m2 29.76 kg/m2 W1 ([facility]) Body height [in_us] eCW1 ([facility]) Body weight Measured 168 [lb_av] 168 [lb_av] eC W1 ([facility]) Body weight 2744 [oz_av] 2744 [oz_av] CHAO ([facility]) Systolic blood pressure 114 mm[Hg] 114 mm[Hg] A THENA ([facility]) Body height 64 [in_i] 64 [in_i] CHAO ([facility]) Diastolic blood pressure 78 mm[Hg] 78 mm[Hg] CHAO ([facility]) Body weight 2720 [oz_av] 2720 [oz_av] CHAO ([facility]) Systolic blood pressure 130 mm[Hg] 130 mm[Hg] A THENA ([facility]) Body height 64 [in_i] 64 [in_i] CHAO ([facility]) Diastolic blood pressure 84 mm[Hg] 84 mm[Hg] CHAO ([facility]) Diastolic blood pressure 83 mm[Hg] 83 mm[Hg] eCW1 ([facility]) Systolic blood pressure 132 mm[Hg] 132 mm[Hg] e CW1 ([facility]) Body temperature 98.8 [degF] 98.8 [degF] eCW1 ( [facility]) Respiratory rate 18 /min 18 /min eCW1 ([facility]) Heart rate 65 /min 65 /min eCW1 ([facility]) Body mass index (BMI) [Ratio] 30.64 kg/m2 30.64 kg/m2 eCW1 ([facility]) Body height [in_us] eCW1 ([facility]) Body weight Measured 173 [lb_av] 173 [lb_av] eC W1 ([facility]) Body weight 2710.08 [oz_av] 2710.08 [oz_av] ATH MERCEDES ([facility]) Systolic blood pressure 116 mm[Hg] 116 mm[Hg] A [facility] ([facility]) Body height 64 [in_i] 64 [in_i] CHAO ([facility]) Diastolic blood pressure 76 mm[Hg] 76 mm[Hg] CHAO ([facility]) Body weight 2742.4 [oz_av] 2742.4 [oz_av] ATHEN A ([facility]) Systolic blood pressure 119 mm[Hg] 119 mm[Hg] A THENA ([facility]) Body height 64 [in_i] 64 [in_i] CHAO ([facility]) Diastolic blood pressure 79 mm[Hg] 79 mm[Hg] CHAO ([facility]) Body weight 2752 [oz_av] 2752 [oz_av] CHAO ([facility]) Systolic blood pressure 126 mm[Hg] 126 mm[Hg] A THENA ([facility]) Body height 64 [in_i] 64 [in_i] CHAO ([facility]) Diastolic blood pressure 82 mm[Hg] 82 mm[Hg] CHAO ([facility]) Diastolic blood pressure 90 mm[Hg] 90 mm[Hg] eCW1 ([facility]) Systolic blood pressure 135 mm[Hg] 135 mm[Hg] e CW1 ([facility]) Body temperature 99.8 [degF] 99.8 [degF] eCW1 ( [facility]) Respiratory rate 18 /min 18 /min eCW1 ([facility]) Heart rate 83 /min 83 /min eCW1 ([facility]) Body mass index (BMI) [Ratio] 30.82 kg/m2 30.82 kg/m2 eCW1 ([facility]) Body height [in_us] eCW1 ([facility]) Body weight Measured 174 [lb_av] 174 [lb_av] eC W1 ([facility]) Body weight 2816 [oz_av] 2816 [oz_av] CHAO ([facility]) Systolic blood pressure 119 mm[Hg] 119 mm[Hg] A THENA ([facility]) Body height 64 [in_i] 64 [in_i] CHAO ([facility]) Diastolic blood pressure 83 mm[Hg] 83 mm[Hg] CHAO ([facility]) Patient Treatment Plan of Care Planned Activity Planned Date Details Description Data Source (s) Acetaminophen 300 MG / Codeine Phosphate 30 MG Oral Tablet [Tylenol with Codeine] 11/03/2019 12:00:00 AM EDT eCW1 ([facility]) Acetaminophen 300 MG / Codeine Phosphate 30 MG Oral Tablet [Tylenol with Codeine] 11/03/2019 12:00:00 AM EDT eCW1 ([facility]) Ibuprofen 800 MG Oral Tablet 10/08/2019 12:00:00 AM EDT eCW1 ([facility]) Sulfamethoxazole 800 MG / Trimethoprim 160 MG Oral Tab let 07/22/2019 12:00:00 AM EST eCW1 ([facility]) Sulfamethoxazole 800 MG / Trimethoprim 160 MG Oral Tab let [Bactrim] 07/20/2019 12:00:00 AM EST eCW1 ([facility]) tramadol hydrochloride 50 MG Oral Tablet CHAO ([facility]) Tamsulosin hydrochloride 0.4 MG Oral Capsule CHAO ([facility]) Sulfamethoxazole 800 MG / Trimethoprim 160 MG Oral Tablet CHAO ([facility]) Promethazine Hydrochloride 25 MG Oral Tablet CHAO ([facility]) Acetaminophen 325 MG / Oxycodone Hydrochloride 5 MG Oral Tablet CHAO ([facility]) Ondansetron 4 MG Oral Tablet CHAO ([facility]) Ondansetron 4 MG Disintegrating Oral Tablet CHAO ([facility]) Omeprazole 20 MG Delayed Release Oral Capsule CHAO ([facility]) NITROFURANTOIN, MACROCRYSTALS 25 MG / Ni trofurantoin, Monohydrate 75 MG Oral Capsule CHAO ([facility]) Ibuprofen 800 MG Oral Tablet CHAO ([facility]) Acetaminophen 325 MG / Hydrocodone Bitartrate 5 MG Oral Tablet CHAO ([facility]) Escitalopram 10 MG Oral Tablet CHAO ([facility]) cefdinir 300 MG Oral Capsule CHAO ([facility]) benzonatate 100 MG Oral Capsule CHAO ([facility]) Amoxicillin 875 MG / Clavulanate 125 MG Oral Tablet CHAO ([facility]) Acetaminophen 300 MG / Codeine Phosphate 30 MG Oral Tablet CHAO ([facility])
--- NOTE | 2020-06-21 13:14 | ROOR ---
Patient Name: Francesca Moore Procedure Date: 06/21/2020 12:56 PM Date of : 1985 Age: 35 Room: [facility] Gender: Female Note Status: Finalized Procedure: Upper Endoscopy + Biopsies Indications: Epigastric abdominal pain, Abdominal pain in the right upper quadrant Providers: Rajat Gibbs MD Referring MD: Judi Flores Requesting Provider: Medicines: Monitored Anesthesia Care Complications: No immediate complications. Procedure: Pre-Anesthesia Assessment: - The heart rate, respiratory rate, oxygen saturations, blood pressure, adequacy of pulmonary ventilation, and response to care were monitored throughout the procedure. The Endoscope was introduced through the mouth, and advanced to the second part of duodenum. The upper GI endoscopy was accomplished without difficulty. The patient tolerated the procedure well. Findings: The Z-line was variable and was found 40 cm from the incisors. Multiple biopsies were obtained with cold forceps for evaluation to rule out Briceno's Esophagus randomly at the gastroesophageal junction. A small hiatal hernia was present. No other significant abnormalities were identified in a careful examination of the stomach. Biopsies were taken with a cold forceps in the gastric antrum for Helicobacter pylori testing. The exam of the duodenum was otherwise normal. Biopsies for histology were taken with a cold forceps in the first portion of the duodenum for evaluation of celiac disease. The exam was otherwise without abnormality. Impression: - Z-line variable, 40 cm from the incisors. - Small hiatal hernia. - The examination was otherwise normal. - Multiple biopsies were obtained at the gastroesophageal junction. - Biopsies were taken with a cold forceps for Helicobacter pylori testing. - Biopsies were taken with a cold forceps for evaluation of celiac disease. - The examination was otherwise normal. Recommendation: - Patient has a contact number available for emergencies. The signs and symptoms of potential delayed complications were discussed with the patient. Return to normal activities tomorrow. Written discharge instructions were provided to the patient. - High fiber diet. - Discharge patient to home. - Follow an antireflux regimen. - Continue present medications. - Await pathology results. - Telephone GI clinic for pathology results in 1 week. - Return to referring physician. - The findings and recommendations were discussed with the patient. Procedure Code(s): --- Professional --- 18365, Esophagogastroduodenoscopy, flexible, transoral; with biopsy, single or multiple Diagnosis Code(s): --- Professional --- K22.8, Other specified diseases of esophagus K44.9, Diaphragmatic hernia without obstruction or gangrene R10.13, Epigastric pain R10.11, Right upper quadrant pain CPT copyright 2019 [employer]. All rights reserved. The codes documented in this report are preliminary and upon broadcast chief engineer review may be revised to meet current compliance requirements. Rajat Gibbs MD Rajat Gibbs MD 06/21/2020 1:14:07 PM Electronically signed by Rajat Gibbs MD Number of Addenda: 0 Note Initiated On: 06/21/2020 12:56 PM Estimated Blood Loss: Estimated blood loss: none.
--- NOTE | 2020-06-21 13:30 | ROOR ---
Patient Name: Francesca Moore Procedure Date: 06/21/2020 12:57 PM Date of : 1985 Age: 35 Room: [facility] Gender: Female Note Status: Finalized Procedure: Total Colonoscopy to Cecum + Biopsy Polypectomy + Hemoclip Indications: Abdominal pain in the left upper quadrant Providers: Rajat Gibbs MD Referring MD: Judi Flores Requesting Provider: Medicines: Monitored Anesthesia Care Complications: No immediate complications. Procedure: Pre-Anesthesia Assessment: - The heart rate, respiratory rate, oxygen saturations, blood pressure, adequacy of pulmonary ventilation, and response to care were monitored throughout the procedure. The Colonoscope was introduced through the anus and advanced to the cecum, identified by appendiceal orifice and ileocecal valve. The colonoscopy was performed without difficulty. The patient tolerated the procedure well. The quality of the bowel preparation was excellent. Findings: The perianal and digital rectal examinations were normal. Non-bleeding internal hemorrhoids were found during retroflexion. The hemorrhoids were small and Grade I (internal hemorrhoids that do not prolapse). A small polyp was found at 60 cm proximal to the anus. The polyp was sessile. The polyp was removed with a jumbo cold forceps. Resection and retrieval were complete. To prevent bleeding after the polypectomy, one hemostatic clip was successfully placed (MR conditional). There was no bleeding at the end of the procedure. The exam was otherwise without abnormality on direct and retroflexion views. Impression: - Non-bleeding internal hemorrhoids. - One small polyp at 60 cm proximal to the anus, removed with a jumbo cold forceps. Resected and retrieved. Clip (MR conditional) was placed. - The examination was otherwise normal on direct and retroflexion views. - The exam was otherwise normal to the cecum. Recommendation: - Patient has a contact number available for emergencies. The signs and symptoms of potential delayed complications were discussed with the patient. Return to normal activities tomorrow. Written discharge instructions were provided to the patient. - High fiber diet. - Discharge patient to home. - Continue present medications. - Await pathology results. - Telephone GI clinic for pathology results in 1 week. - Repeat colonoscopy at age 48 for screening purposes. - Return to referring physician. - The findings and recommendations were discussed with the patient. Procedure Code(s): --- Professional --- 53388, Colonoscopy, flexible; with biopsy, single or multiple Diagnosis Code(s): --- Professional --- K64.0, First degree hemorrhoids K63.5, Polyp of colon R10.12, Left upper quadrant pain CPT copyright 2019 [employer]. All rights reserved. The codes documented in this report are preliminary and upon beverage sales consultant review may be revised to meet current compliance requirements. Rajat Gibbs MD Rajat Gibbs MD 06/21/2020 1:30:19 PM Electronically signed by Rajat Gibbs MD Number of Addenda: 0 Note Initiated On: 06/21/2020 12:57 PM Estimated Blood Loss: Estimated blood loss: none.
[2020-06-21 13:45] VITALS: BP 107/56
== END 2020-06-21 14:15 | disposition home or self-care (01) ==
LOC: M OPP 11:05
PROVIDERS: ATTEND Internal Medicine Gastroenterology
DX: R10.12 Left upper quadrant pain (principal); R10.13 Epigastric pain; R10.11 Right upper quadrant pain; K63.5 Polyp of colon; K64.0 First degree hemorrhoids; D13.0 Benign neoplasm of esophagus; D13.1 Benign neoplasm of stomach; K22.8 Other specified diseases of esophagus; K44.9 Diaphragmatic hernia without obstruction or gangrene; K76.0 Fatty (change of) liver, not elsewhere classified; F41.9 Anxiety disorder, unspecified; F32.9 Major depressive disorder, single episode, unspecified; Z88.7 Allergy status to serum and vaccine; Z79.899 Other long term (current) drug therapy

== ENCOUNTER 2020-12-25 08:04 | Emergency (ER) | payer OTHER ==
[~2020-12-25] VITALS: Ht 160 cm; Wt 88.2 kg
[~2020-12-25 08:04] MED LIST changes: -LIDOCAINE 2% 100MG/5ML SDV (FOR ANES.) As Ordered ONE; -NS 1,000 ML IV ONE; -propofoL 200 MG/20 ML VIAL As Ordered ONE
[2020-12-25 08:05] VITALS: BP 144/82
[2020-12-25] MEDS ORDERED: HYDR-3363 (08:11)
[2020-12-25] MEDS ORDERED: VITA1CAP25 (08:11)
[2020-12-25 09:30] LABS: BASO % 0.4 % (0.0-1.0); EOS # 0.1 10^3/uL (0.0-0.5); EOS % 1.4 % (0.0-3.0); HEMATOCRIT 40.9 % (36.0-47.0); LYMPH # 2.2 10^3/uL (1.5-5.0); LYMPH % 39.3 % (24.0-44.0); MEAN CORPUSCULAR HEMOGLOBIN 31.3 pg (27.0-33.0); MEAN CORPUSCULAR HGB CONC 34.2 g/dl (32.0-36.5); MEAN CORPUSCULAR VOLUME 91.3 fl (80.0-96.0); MONO # 0.5 10^3/uL (0.0-0.8); MONO % 8.4 % (2.0-8.0); NEUTROPHILS # 2.8 10^3/uL (1.5-8.5); PLATELET COUNT, AUTOMATED 194 10^3/uL (150-450); RED BLOOD COUNT 4.48 10^6/uL (4.00-5.40); WHITE BLOOD COUNT 5.6 10^3/uL (4.0-10.0)
[2020-12-25 09:50] LABS: HCG, SERUM QUALITATIVE NEGATIVE (NEGATIVE)
[2020-12-25 09:58] LABS: ALBUMIN 3.3 GM/DL (3.2-5.2); ALT/SGPT 102 U/L (12-78); BILIRUBIN,DIRECT < 0.1 MG/DL (0.0-0.2); BILIRUBIN,TOTAL 0.4 MG/DL (0.2-1.0); BLOOD UREA NITROGEN 11 MG/DL (7-18); CALCIUM LEVEL 8.8 MG/DL (8.5-10.1); CARBON DIOXIDE LEVEL 27 MEQ/L (21-32); CHLORIDE LEVEL 109 MEQ/L (98-107); CREATININE FOR GFR 0.68 MG/DL (0.55-1.30); GLOMERULAR FILTRATION RATE > 60.0 (>60); GLUCOSE, FASTING 96 MG/DL (70-100); LIPASE 117 U/L (73-393); POTASSIUM SERUM 5.3 MEQ/L (3.5-5.1); SODIUM LEVEL 139 MEQ/L (136-145); TOTAL PROTEIN 7.2 GM/DL (6.4-8.2)
--- NOTE | 2020-12-25 11:16 | REP ---
INDICATION: renal colic COMPARISON: 06/21/2019. TECHNIQUE: CT Scan of the abdomen and pelvis was performed without intravenous contrast. Sagittal and coronal reconstruction images performed. FINDINGS: Lung bases: Unremarkable. Liver: There is diffuse fatty infiltration of the liver. Gallbladder: Unremarkable. Spleen: Grossly unremarkable. Adrenals: Normal. Pancreas: Grossly unremarkable.. Kidneys: No hydronephrosis. Multiple punctate right renal calculi are seen diffusely. Ureters demonstrate no dilatation or calculus. Small and large bowel: Grossly unremarkable. Free fluid: None. Abdominal aorta: No aneurysm. Adenopathy: None. Appendix: Not inflamed. Osseous structures: Unremarkable. Pelvis: There is a 3.4 cm cystic structure of the right ovary.. No bladder calculus seen. IMPRESSION: Multiple punctate right renal calculi. No ureteral calculus bilaterally and no evidence of hydroureteronephrosis. No bladder calculus. 3.4 cm cystic structure right ovary, similar to prior CT 06/21/2019. No free air, free fluid or bowel obstruction. <Electronically signed by Ryan Bernstein > 12/25/20 1112
[2020-12-25] MEDS ORDERED: ANAP550T15 PO ×2 (11:36→13:37)
== END 2020-12-25 12:17 | disposition home or self-care (01) ==
LOC: M ED 08:04
DX: N83.201 Unspecified ovarian cyst, right side (principal); N20.0 Calculus of kidney; Z88.7 Allergy status to serum and vaccine

== ENCOUNTER → 2021-01-15 | Outpatient (REF) | payer OTHER ==
[~2021-01-15] MED LIST changes: +ANAP550T15 PO; +HYDR-3363; +VITA1CAP25
== END ==
LOC: M LAB REF 12:45
PROVIDERS: ATTEND Physician Assistant
DX: R35.0 Frequency of micturition (principal)

== ENCOUNTER → 2021-04-09 | Outpatient (CLI) | payer MEDICAID, OTHER ==
[~2021-04-09] MED LIST changes: +HYDR-4571 PO; +LEXA1TAB2 PO
== END ==
LOC: M LABSMTC 09:13
PROVIDERS: ATTEND Anesthesiology
DX: Z01.818 Encounter for other preprocedural examination (principal); Z11.52 Encounter for screening for COVID-19

== ENCOUNTER 2021-04-13 08:29 | Day surgery (SDC) | payer MEDICAID, OTHER ==
[~2021-04-13] VITALS: Ht 162.6 cm; Wt 89.3 kg
[~2021-04-13 08:29] MED LIST changes: +LR 1,000 ML IV ONE; +ceFAZolin SOD 2 GM in IV 1 EA IV ONE
[2021-04-13] MEDS ORDERED: ONDANSETRON 4MG/2ML VIAL As Ordered ONE (08:51)
[2021-04-13] MEDS ORDERED: propofoL 200 MG/20 ML VIAL As Ordered ONE (08:51)
[2021-04-13] MEDS ORDERED: MIDAZOLAM INJ 2MG/2ML VIAL (J2250 PER 1MG) As Ordered ONE (08:51)
[2021-04-13] MEDS ORDERED: dexameTHASONE 4 MG/ML 1ML VIAL (J1100 PER 1MG) As Ordered ONE (08:51)
[2021-04-13] MEDS ORDERED: LIDOCAINE 2% 100MG/5ML SDV (FOR ANES.) As Ordered ONE (08:51)
[2021-04-13] MEDS ORDERED: ROCURONIUM BROMIDE 50 MG/5 ML VIAL As Ordered ONE ×2 (08:51→10:34)
[2021-04-13] MEDS ORDERED: fentaNYL 100 MCG/2 ML INJECTION (J3010) As Ordered ONE ×3 (08:51→11:34)
[2021-04-13] MEDS ORDERED: LACRILUBE (AKWA TEARS) OPHTH OINT 3.5 GM As Ordered ONE (08:57)
[2021-04-13 08:58] LABS: HEMATOCRIT 42.4 % (36.0-47.0); HEMOGLOBIN 14.3 g/dl (12.0-15.5); MEAN CORPUSCULAR HEMOGLOBIN 30.8 pg (27.0-33.0); MEAN CORPUSCULAR HGB CONC 33.7 g/dl (32.0-36.5); MEAN CORPUSCULAR VOLUME 91.2 fl (80.0-96.0); PLATELET COUNT, AUTOMATED 219 10^3/uL (150-450); RED BLOOD COUNT 4.65 10^6/uL (4.00-5.40); WHITE BLOOD COUNT 5.8 10^3/uL (4.0-10.0)
[2021-04-13] MEDS ORDERED: BUPIVACAINE HCL 0.25% 10ML VIAL As Ordered ONE (09:40)
[2021-04-13] MEDS ORDERED: ACETAMINOPHEN 1000MG 100ML IV BTL (OFIRMEV) (J0131 PER 10MG) As Ordered ONE (10:10)
[2021-04-13] MEDS ORDERED: METOCLOPRAMIDE INJ 10MG/2ML VIAL (J2765 PER 1) As Ordered ONE (10:16)
[2021-04-13] MEDS ORDERED: SUGAMMADEX SODIUM 500 MG/5 ML VIAL (BRIDION) As Ordered ONE (10:16)
[2021-04-13] MEDS ORDERED: KETOROLAC 60MG 2ML VIAL As Ordered ONE (10:16)
[2021-04-13] MEDS ORDERED: HYDROmorphone HCL 2 MG/ML 1ML VIAL As Ordered ONE (11:24)
[2021-04-13] MEDS ORDERED: OXYC1TAB23 PO (11:28)
--- NOTE | 2021-04-13 11:28 | ROOPDOC ---
[facility] Report Of Operation Report of Operation DATE OF PROCEDURE: 04/13/21 OPERATIVE REPORT: Preoperative diagnosis: pelvic pain, ovarian cysts. Postoperative diagnosis: Same. Procedure: Robotic-assisted laparoscopic hysterectomy, right salpingo- oophorectomy, cystoscopy. Surgeon: Alfonzo Gutierrez M.D. Sex Offender Treatment Professional: Amina Tran NP Findings: Normal size uterus. Obliteration of endometrial cavity from prior ablation procedure. Surgically absent left ovary and fallopian tube. Normal right ovary and fallopian tube. Normal upper abdomen. EBL: 50 mL's. Urine output: 100 mL's. Operative summary: Patient was taken to the operating room where general endotracheal anesthesia was induced. She was prepped and draped in sterile fashion in the dorsal lithotomy position. A Hadley Catheter was placed. A V care uterine manipulator was placed. A Periumbilical incision was made with a scalpel. . A Veress needle was placed through this incision. Intra-abdominal location of Veress needle was assessed with saline filled syringe. A pneumoperitoneum was created. The Veress needle was removed. An 8 mm trocar us ing the Visiport was inserted through this incision. Three 8 mm suprapubic ports were placed under direct visualization The patient was placed in Trendelenburg position. The da Hair surgical robot was docked to the ports. Using the fenestrated bipolar instrument and vessel sealer., the right IP ligament and broad ligaments were coagulated and incised. The round ligaments were coagulated and incised. The anterior and posterior leaves of the broad ligament were . Bladder flap was created. The uterine vessels were coagulated and incised using monopolar Endo Kaelyn. A colpotomy was created in the upper vagina at the level of the V care Cup. The specimen including the uterus, cervix, right fallopian tube and ovary was removed through the vagina. The vaginal cuff was closed with #1 V lock suture in running fashion. Cystoscopy was performed using a 70 cystoscope. Bilateral ureteral jets were identified. No evidence of injury to the bladder. The cystoscope was removed. All instruments removed. The skin was closed with 4-0 Monocryl subcuticular sutures. Amina Tran NP assisted with all aspects of the procedure. She helped position the patient. She helped insert the ports and manipulate the uterus. She removed the specimen. ALFONZO GUTIERREZ MD Apr 13, 2021 11:27
[2021-04-13] MEDS ORDERED: IBUP-1022 PO (11:29)
[2021-04-13] MEDS: fentaNYL 100 MCG/2 ML INJECTION (J3010) IV PRN ×4 (11:45→12:16)
[2021-04-13] MEDS ORDERED: METOCLOPRAMIDE INJ 10MG/2ML VIAL (J2765 PER 1) IV PRN (11:45)
[2021-04-13] MEDS ORDERED: oxyCODONE 5MG TAB PO PRN (11:45)
[2021-04-13] MEDS ORDERED: ONDANSETRON 4MG/2ML VIAL IV PRN ×2 (11:45→11:50)
[2021-04-13] MEDS ORDERED: HYDROMORPHONE HCL 0.5 MG/ 0.5 ML SYRINGE (J1170 PER 1) IV PRN (11:45)
[2021-04-13] MEDS ORDERED: LR 1,000 ML IV SCH ×2 (11:45→11:50)
[2021-04-13 13:30] VITALS: BP 102/55
[2021-04-13 14:00] VITALS: BP 108/60
[2021-04-13 15:00] VITALS: BP 111/61
[2021-04-13] MEDS: PERCOCET 5MG/325MG TAB PO PRN ×2 (15:24→20:27)
[2021-04-13 16:00] VITALS: BP 115/63
[2021-04-13] MEDS: KETOROLAC 30 MG/ML 1ML VIAL IV PRN ×2 (17:32→23:58)
[2021-04-13 18:00] VITALS: BP 120/69
[2021-04-13] MEDS: DOCUSATE SODIUM 100MG CAPSULE PO SCH (20:27)
[2021-04-13 22:00] VITALS: BP 104/61
[2021-04-14 02:00] VITALS: BP 101/60
[2021-04-14 06:00] VITALS: BP 99/58
[2021-04-14] MEDS: KETOROLAC 30 MG/ML 1ML VIAL IV PRN (06:24)
[2021-04-14] MEDS: DOCUSATE SODIUM 100MG CAPSULE PO SCH (08:56)
[2021-04-14] MEDS: PERCOCET 5MG/325MG TAB PO PRN (09:04)
--- NOTE | 2021-04-14 10:13 | IPNPDOC ---
Subjective Date Seen The patient was seen on 04/14/21. Subjective Chief Complaint/HPI S/HPI: Patient is status post robotic assisted total laparoscopic hysterectomy, right salpingo-oophorectomy, cystoscopy. Postoperative day #1. Patient is ambulating, tolerating p.o., voiding spontaneously, pain is under control, and she has had minimal vaginal bleeding. She denies chest pain shortness of breath or subjective fever chills/myalgias. Patient states she is ready to go home. O: Vitals are normal and stable, urine output within normal limits, afebrile Abdomen soft nontender nondistended and incisions are clean dry and intact without any erythema or ecchymosis Extremities nonedematous nontender A/P: Postoperative day #1. Meeting all discharge criteria. -Routine postoperative instructions were reviewed -Follow-up in 2 weeks as an outpatient or sooner as needed -Discharge medications: Ibuprofen and Percocet, Colace as needed. Abiodun Painting DO Assessment /Plan Plan/VTE VTE Prophylaxis Ordered?: Yes VTE Exclusion Mechanical Proph: Low Risk for VTE VS, I&O, 24H, Fishbone Vital Signs/I&O Vital Signs Date Time Temp Pulse Resp B/P (MAP) Pulse Ox O2 Delivery O2 Flow Rate FiO2 04/14/21 09:04 18 04/14/21 06:00 98.6 72 99/58 (72) 96 Room Air 04/13/21 15:00 2.0 I&O- Last 24 Hours up to 6 AM 04/14/21 06:00 Intake Total 2623 ml Output Total 1550 ml Balance 1073 ml MADHURI PAINTING DO Apr 14, 2021 10:13
== END 2021-04-14 11:40 | disposition home or self-care (01) ==
LOC: M SDC 08:29 → M OBS 13:20 → M SDC 04-14 11:40
PROVIDERS: ATTEND Specialist
DX: N80.0 Endometriosis of uterus (principal); N83.01 Follicular cyst of right ovary; G43.909 Migraine, unspecified, not intractable, without status migrainosus; F41.9 Anxiety disorder, unspecified; F32.9 Major depressive disorder, single episode, unspecified; Z87.891 Personal history of nicotine dependence; K76.0 Fatty (change of) liver, not elsewhere classified; Z88.7 Allergy status to serum and vaccine; Z79.899 Other long term (current) drug therapy
CPT/HCPCS: 36415; 58571; 85027; 86850; 86900; 86901; 88307; J0131; J0690; J1100; J1170; J1885; J2250; J2405; J2765; J3010

== ENCOUNTER → 2021-07-04 | Outpatient (CLI) | payer OTHER ==
[~2021-07-04] MED LIST changes: -CEFD1CAP8; +CEFD300C41; -LR 1,000 ML IV ONE; -OMEP-221; +OMEP40CA5; +PROHANCE 279.3MG/ML 15ML VIAL ONE; +PROHANCE 279.3MG/ML 5ML VIAL ONE; -ceFAZolin SOD 2 GM in IV 1 EA IV ONE
== END ==
LOC: M PLAIMG 14:21
PROVIDERS: ATTEND Physician Assistant
DX: G51.0 Bell's palsy (principal); R20.0 Anesthesia of skin; M26.601 Right temporomandibular joint disorder, unspecified; H91.93 Unspecified hearing loss, bilateral

== ENCOUNTER 2021-07-21 06:45 | Emergency (ER) | payer OTHER ==
[~2021-07-21] VITALS: Ht 162.6 cm; Wt 95.3 kg
[~2021-07-21 06:45] MED LIST changes: -PROHANCE 279.3MG/ML 15ML VIAL ONE; -PROHANCE 279.3MG/ML 5ML VIAL ONE
[2021-07-21] MEDS ORDERED: LIDOCAINE VISCOUS 2% SOLN 15ML UDC MT ONE (07:40)
[2021-07-21] MEDS ORDERED: ACETAMINOPHEN 325 MG TAB PO ONE (07:40)
[2021-07-21] MEDS ORDERED: guaiFENesin ER 600 MG TAB PO SCH (09:00)
[2021-07-21] MEDS ORDERED: MUCI60TA7 PO (09:22)
[2021-07-21] MEDS ORDERED: LIDO2SOL17 PO (09:23)
[2021-07-21 09:56] VITALS: BP 138/87
== END 2021-07-21 10:07 | disposition home or self-care (01) ==
LOC: M ED 06:45
DX: U07.1 COVID-19 (principal); J02.9 Acute pharyngitis, unspecified; H91.90 Unspecified hearing loss, unspecified ear; M26.621 Arthralgia of right temporomandibular joint; Z88.7 Allergy status to serum and vaccine

== ENCOUNTER → 2021-07-24 | Outpatient (CLI) | payer OTHER ==
[~2021-07-24] MED LIST changes: +LIDO2SOL17 PO; +MUCI60TA7 PO
== END ==
LOC: M RAD 07:37
PROVIDERS: ATTEND Physician Assistant
DX: K75.81 Nonalcoholic steatohepatitis (NASH) (principal)

== ENCOUNTER → 2021-11-26 | Outpatient (CLI) | payer OTHER | LOC: M PLAIMG 06:56 | PROVIDERS: ATTEND Physician Assistant | DX: M25.861 Other specified joint disorders, right knee (principal) ==

== ENCOUNTER 2022-01-19 20:07 | Emergency (ER) | payer OTHER ==
[~2022-01-19] VITALS: Ht 162.6 cm; Wt 95.5 kg
[~2022-01-19 20:07] MED LIST changes: -HYDR-3363; +HYDR-3363 PO
[2022-01-19 20:26] LABS: BASO % 0.3 % (0.0-1.0); EOS # 0.2 10^3/uL (0.0-0.5); EOS % 1.3 % (0.0-3.0); HEMATOCRIT 43.9 % (36.0-47.0); LYMPH # 4.7 10^3/uL (1.5-5.0); MEAN CORPUSCULAR HEMOGLOBIN 31.1 pg (27.0-33.0); MEAN CORPUSCULAR HGB CONC 34.2 g/dl (32.0-36.5); MEAN CORPUSCULAR VOLUME 90.9 fl (80.0-96.0); MONO # 0.7 10^3/uL (0.0-0.8); MONO % 6.3 % (2.0-8.0); NEUTROPHILS # 5.8 10^3/uL (1.5-8.5); NEUTROPHILS % 50.5 % (36.0-66.0); PLATELET COUNT, AUTOMATED 238 10^3/uL (150-450); RED BLOOD COUNT 4.83 10^6/uL (4.00-5.40); WHITE BLOOD COUNT 11.5 10^3/uL (4.0-10.0)
[2022-01-19 21:02] LABS: VENOUS BASE EXCESS 1.6 (-2.0-2.0); VENOUS HCO3 28.4 MEQ/L (23.0-27.0); VENOUS O2 SATURATION 71.2 % (60.0-80.0); VENOUS PARTIAL PRESSURE CO2 53.3 mmHg (38.0-50.0); VENOUS PARTIAL PRESSURE O2 37.3 mmHg (30.0-50.0); VENOUS PH 7.345 UNITS (7.330-7.430); VENOUS STANDARD HCO3 25.2 MEQ/L; VENOUS TOTAL CO2 30.1 MEQ/L (24.0-28.0)
[2022-01-19 21:07] LABS: BLOOD UREA NITROGEN 13 MG/DL (7-18); CALCIUM LEVEL 9.7 MG/DL (8.5-10.1); CARBON DIOXIDE LEVEL 24 MEQ/L (21-32); CHLORIDE LEVEL 105 MEQ/L (98-107); CK-MB VALUE MASS < 1.0 NG/ML (<3.6); CPK CREATINE PHOSPHOKINASE 99 U/L (26-192); CREATININE FOR GFR 0.77 MG/DL (0.55-1.30); GLOMERULAR FILTRATION RATE > 60.0 (>60); GLUCOSE, FASTING 86 MG/DL (70-100); MB/CK RELATIVE INDEX 1.01 (< OR =4); POTASSIUM SERUM 3.9 MEQ/L (3.5-5.1); SODIUM LEVEL 137 MEQ/L (136-145)
[2022-01-19] MEDS ORDERED: ONDANSETRON 4MG 2ML VIAL IV ONE (21:25)
[2022-01-19] MEDS ORDERED: MIDAZOLAM INJ 2MG/2ML VIAL (J2250 PER 1MG) IV ONE (21:25)
[2022-01-19] MEDS ORDERED: fentaNYL 100 MCG/2 ML INJECTION IV ONE (21:25)
[2022-01-19] MEDS ORDERED: NS 1,000 ML IV ONE (21:40)
[2022-01-19 22:36] LABS: RSV AMPLIFICATION NEGATIVE (NEGATIVE)
[2022-01-19] MEDS ORDERED: VITA1CAP25 PO (23:38)
[2022-01-19] MEDS ORDERED: ESTR1TAB PO (23:38)
[2022-01-19] MEDS ORDERED: MED REC COMMENT (23:39)
[2022-01-19] MEDS ORDERED: HOME MED LIST COMPLETE! XX SCH (23:40)
[2022-01-20 00:04] LABS: AMPHETAMINES LEVEL URINE NEGATIVE (NEGATIVE); BARBITURATES URINE NEGATIVE (NEGATIVE); BENZODIAZEPINES URINE POSITIVE (NEGATIVE); CANNABINOIDS URINE NEGATIVE (NEGATIVE); COCAINE METABOLITE URINE NEGATIVE (NEGATIVE); METHADONE URINE NEGATIVE (NEGATIVE); OPIATES URINE NEGATIVE (NEGATIVE); PHENCYCLIDINE URINE NEGATIVE (NEGATIVE)
[2022-01-20 02:30] VITALS: BP 112/71
== END 2022-01-20 02:52 | disposition home or self-care (01) ==
LOC: M ED 20:07
DX: R51.9 Headache, unspecified (principal); R41.82 Altered mental status, unspecified; F10.10 Alcohol abuse, uncomplicated; Z88.7 Allergy status to serum and vaccine; Z79.899 Other long term (current) drug therapy
CPT/HCPCS: 70450; 70544; 70551; 71045; 80048; 80307; 82077; 82550; 82553; 82803; 83605; 85025; 87631; 93005; 96374; 99285; J2250; J2405; J3010

== ENCOUNTER → 2022-01-31 | Outpatient (CLI) | payer OTHER ==
[~2022-01-31] MED LIST changes: +ESTR1TAB PO; +MED REC COMMENT; +VITA1CAP25 PO
== END ==
LOC: M RAD 14:52
PROVIDERS: ATTEND Physician Assistant
DX: R41.82 Altered mental status, unspecified (principal)

== ENCOUNTER → 2022-02-19 | Outpatient (CLI) | payer OTHER ==
[2022-02-19 10:57] LABS: FREE T4 0.85 NG/DL (0.76-1.46); THYROID STIMULATING HORMONE 1.19 uIU/ML (0.358-3.740)
== END ==
LOC: M WUC 08:34
PROVIDERS: ATTEND Student in an Organized Health Care Education/Training Program
DX: M54.2 Cervicalgia (principal)

== ENCOUNTER → 2022-03-12 | Outpatient (CLI) | payer OTHER | LOC: M RAD 16:00 | PROVIDERS: ATTEND Physician Assistant | DX: E04.2 Nontoxic multinodular goiter (principal); F45.8 Other somatoform disorders ==

== ENCOUNTER → 2022-08-07 | Outpatient (REF) | payer OTHER ==
[~2022-08-07] MED LIST changes: +LIDO15SO4 PO; -LIDO2SOL17 PO
[2022-08-07 16:33] LABS: HEMOGLOBIN 14.4 g/dl (12.0-15.5); MEAN CORPUSCULAR HEMOGLOBIN 31.2 pg (27.0-33.0); MEAN CORPUSCULAR HGB CONC 33.5 g/dl (32.0-36.5); MEAN CORPUSCULAR VOLUME 93.1 fl (80.0-96.0); PLATELET COUNT, AUTOMATED 222 10^3/uL (150-450); RED BLOOD COUNT 4.62 10^6/uL (4.00-5.40); WHITE BLOOD COUNT 6.8 10^3/uL (4.0-10.0)
[2022-08-07 17:10] LABS: ALKALINE PHOSPHATASE 68 U/L (46-116); ALT/SGPT 157 U/L (7.0-40); AST/SGOT 124 U/L (<34); BILIRUBIN,TOTAL 0.8 MG/DL (0.3-1.2); BLOOD UREA NITROGEN 16 MG/DL (9-23); CALCIUM LEVEL 9.3 MG/DL (8.5-10.1); CARBON DIOXIDE LEVEL 30 MMOL/L (20-31); CHLORIDE LEVEL 105 MMOL/L (98-107); CHOLESTEROL LEVEL 159 MG/DL (<200); CHOLESTEROL RISK RATIO 3.76 (<5); GLOMERULAR FILTRATION RATE > 60.0 (>60); GLUCOSE, FASTING 119 MG/DL (60-100); HDL CHOLESTEROL 42.2 MG/DL (>40); LDL CHOLESTEROL 84.8 MG/DL (<100); NON-HDL-C 117 MG/DL; SODIUM LEVEL 140 MMOL/L (136-145); TOTAL PROTEIN 7.1 G/DL (5.7-8.2); TRIGLYCERIDES LEVEL 160 MG/DL (<150)
[2022-08-07 17:12] LABS: HEMOGLOBIN A1c 5.5 % (4.0-6.0)
[2022-08-07 17:42] LABS: HEPATITIS C VIRUS ABY INDEX 0.1 INDEX (<0.8)
== END ==
LOC: M LAB REF 16:17
PROVIDERS: ATTEND Physician Assistant
DX: R73.01 Impaired fasting glucose (principal); E78.00 Pure hypercholesterolemia, unspecified; Z11.59 Encounter for screening for other viral diseases; R42 Dizziness and giddiness

== ENCOUNTER → 2022-10-01 | Outpatient (CLI) | payer OTHER ==
[~2022-10-01] MED LIST changes: +LIDO15SO PO; -LIDO15SO4 PO
[2022-10-01 08:43] LABS: ALBUMIN 3.6 G/DL (3.2-5.2); BILIRUBIN,DIRECT 0.2 MG/DL (<0.4); BILIRUBIN,TOTAL 0.7 MG/DL (0.3-1.2); TOTAL PROTEIN 6.8 G/DL (5.7-8.2)
== END ==
LOC: M LAB 07:44
PROVIDERS: ATTEND Physician Assistant
DX: K75.81 Nonalcoholic steatohepatitis (NASH) (principal)

== ENCOUNTER → 2022-10-01 | Outpatient (CLI) | payer OTHER ==
[2022-10-01 08:46] LABS: FREE T4 0.9 NG/DL (0.89-1.76); THYROID STIMULATING HORMONE 1.948 uIU/ML (0.55-4.78)
== END ==
LOC: M LAB 07:42
PROVIDERS: ATTEND Nurse Practitioner Family
DX: E04.2 Nontoxic multinodular goiter (principal)

== ENCOUNTER → 2022-10-16 | Outpatient (REF) | payer OTHER | LOC: M LAB REF 16:14 | PROVIDERS: ATTEND Physician Assistant | DX: R39.9 Unspecified symptoms and signs involving the genitourinary system (principal) ==

== ENCOUNTER → 2022-10-17 | Outpatient (CLI) | payer OTHER | LOC: M PLAIMG 09:13 | PROVIDERS: ATTEND Physician Assistant | DX: Z87.442 Personal history of urinary calculi (principal) ==

== ENCOUNTER 2022-10-22 04:54 | Emergency (ER) | payer OTHER ==
[~2022-10-22] VITALS: Ht 162.6 cm; Wt 98.2 kg
[2022-10-22] MEDS ORDERED: KETOROLAC 30 MG/ML 1ML VIAL IV ONE (05:10)
[2022-10-22] MEDS ORDERED: ONDANSETRON 4MG 2ML VIAL As Ordered ONE (05:33)
[2022-10-22 05:34] LABS: APPEARANCE, URINE CLOUDY (CLEAR); BACTERIA, URINE AUTO NEGATIVE (NEGATIVE); BILIRUBIN, URINE AUTO NEGATIVE (NEGATIVE); BLOOD, URINE BLOOD 3+ (NEGATIVE); COLOR, URINE AMBER (YELLOW); GLUCOSE, URINE (UA) AUTO NEGATIVE (NEGATIVE); KETONE, URINE AUTO NEGATIVE (NEGATIVE); LEUKOCYTE ESTERASE, URINE AUTO NEGATIVE (NEGATIVE); MUCUS, URINE SMALL (NEGATIVE); NITRITE, URINE AUTO NEGATIVE (NEGATIVE); PROTEIN, URINE AUTO 2+ mg/dL (NEGATIVE); RBC, URINE AUTO TNTC /HPF (0-3); SPECIFIC GRAVITY URINE AUTO 1.021 (1.002-1.035); SQUAMOUS EPITHELIAL CELL UR AU 3 /HPF (0-6); UROBILINOGEN, URINE AUTO 0.2 mg/dL (0.0-2.0); WBC, URINE AUTO 0 /HPF (0-3)
[2022-10-22 06:00] LABS: BASO % 0.3 % (0.0-1.0); EOS # 0.2 10^3/uL (0.0-0.5); EOS % 2.5 % (0.0-3.0); HEMATOCRIT 40.1 % (36.0-47.0); HEMOGLOBIN 13.4 g/dl (12.0-15.5); LYMPH # 2.3 10^3/uL (1.5-5.0); LYMPH % 37.3 % (24.0-44.0); MEAN CORPUSCULAR HEMOGLOBIN 30.5 pg (27.0-33.0); MEAN CORPUSCULAR HGB CONC 33.4 g/dl (32.0-36.5); MEAN CORPUSCULAR VOLUME 91.1 fl (80.0-96.0); MONO # 0.4 10^3/uL (0.0-0.8); MONO % 7.3 % (2.0-8.0); NEUTROPHILS # 3.1 10^3/uL (1.5-8.5); NEUTROPHILS % 51.9 % (36.0-66.0); PLATELET COUNT, AUTOMATED 204 10^3/uL (150-450)
[2022-10-22] MEDS ORDERED: ONDANSETRON 4MG 2ML VIAL IV ONE (06:00)
[2022-10-22 06:27] LABS: ALBUMIN 4.1 G/DL (3.2-5.2); ALKALINE PHOSPHATASE 61 U/L (46-116); ALT/SGPT 123 U/L (7.0-40); AST/SGOT 126 U/L (<34); BILIRUBIN,DIRECT 0.2 MG/DL (<0.4); BILIRUBIN,TOTAL 0.6 MG/DL (0.3-1.2); BLOOD UREA NITROGEN 12 MG/DL (9-23); CARBON DIOXIDE LEVEL 26 MMOL/L (20-31); CHLORIDE LEVEL 105 MMOL/L (98-107); CREATININE FOR GFR 0.69 MG/DL (0.55-1.30); GLOMERULAR FILTRATION RATE > 60.0 (>60); GLUCOSE, FASTING 148 MG/DL (60-100); LIPASE 59 U/L (12-53); POTASSIUM SERUM 5.4 MMOL/L (3.5-5.1); SODIUM LEVEL 137 MMOL/L (136-145); TOTAL PROTEIN 7.3 G/DL (5.7-8.2)
[2022-10-22] MEDS ORDERED: ACETAMINOPHEN 325 MG TAB PO ONE (07:10)
[2022-10-22] MEDS ORDERED: NS 1,000 ML IV ONE (08:35)
[2022-10-22] MEDS ORDERED: PYRI1TAB5 PO (08:54)
[2022-10-22] MEDS ORDERED: KETO10TAB PO (08:55)
[2022-10-22 09:10] VITALS: BP 123/79
== END 2022-10-22 09:15 | disposition home or self-care (01) ==
LOC: M ED 04:54
DX: R10.31 Right lower quadrant pain (principal); R31.9 Hematuria, unspecified; R30.0 Dysuria; K76.0 Fatty (change of) liver, not elsewhere classified; Z87.442 Personal history of urinary calculi; Z88.7 Allergy status to serum and vaccine; Z79.899 Other long term (current) drug therapy
CPT/HCPCS: 74176; 80048; 80076; 81001; 83690; 85025; 96361; 96374; 99284; J1885; J2405

== ENCOUNTER → 2022-12-05 | Outpatient (REF) | payer OTHER ==
[~2022-12-05] MED LIST changes: +KETO10TAB PO; +PYRI1TAB5 PO
[2022-12-05 18:27] LABS: APPEARANCE, URINE HAZY (CLEAR); BACTERIA, URINE AUTO NEGATIVE (NEGATIVE); BILIRUBIN, URINE AUTO NEGATIVE (NEGATIVE); BLOOD, URINE BLOOD 2+ (NEGATIVE); COLOR, URINE YELLOW (YELLOW); GLUCOSE, URINE (UA) AUTO NEGATIVE (NEGATIVE); KETONE, URINE AUTO NEGATIVE (NEGATIVE); LEUKOCYTE ESTERASE, URINE AUTO NEGATIVE (NEGATIVE); MUCUS, URINE SMALL (NEGATIVE); NITRITE, URINE AUTO NEGATIVE (NEGATIVE); PROTEIN, URINE AUTO NEGATIVE (NEGATIVE); RBC, URINE AUTO 45 /HPF (0-3); SPECIFIC GRAVITY URINE AUTO 1.023 (1.002-1.035); SQUAMOUS EPITHELIAL CELL UR AU 2 /HPF (0-6); UROBILINOGEN, URINE AUTO 0.2 mg/dL (0.0-2.0); WBC, URINE AUTO 5 /HPF (0-3)
== END ==
LOC: M SMT 16:58
PROVIDERS: ATTEND Specialist
DX: N30.90 Cystitis, unspecified without hematuria (principal)

== ENCOUNTER → 2023-01-20 | Outpatient (CLI) | payer OTHER ==
[~2023-01-20] MED LIST changes: +ATOR1TAB19 PO; +MYRB25TA PO; +SEMA0.257 SQ
[2023-01-20 12:20] LABS: APPEARANCE, URINE HAZY (CLEAR); BACTERIA, URINE AUTO NEGATIVE (NEGATIVE); BILIRUBIN, URINE AUTO NEGATIVE (NEGATIVE); BLOOD, URINE BLOOD NEGATIVE (NEGATIVE); COLOR, URINE YELLOW (YELLOW); GLUCOSE, URINE (UA) AUTO NEGATIVE (NEGATIVE); KETONE, URINE AUTO NEGATIVE (NEGATIVE); LEUKOCYTE ESTERASE, URINE AUTO TRACE (NEGATIVE); MUCUS, URINE SMALL (NEGATIVE); NITRITE, URINE AUTO NEGATIVE (NEGATIVE); PROTEIN, URINE AUTO 1+ mg/dL (NEGATIVE); RBC, URINE AUTO 0 /HPF (0-3); SPECIFIC GRAVITY URINE AUTO 1.018 (1.002-1.035); SQUAMOUS EPITHELIAL CELL UR AU 8 /HPF (0-6); UROBILINOGEN, URINE AUTO 0.2 mg/dL (0.0-2.0); WBC, URINE AUTO 13 /HPF (0-3)
[2023-01-20 12:46] LABS: HEMOGLOBIN 14.3 g/dl (12.0-15.5); MEAN CORPUSCULAR HEMOGLOBIN 30.8 pg (27.0-33.0); MEAN CORPUSCULAR VOLUME 90.5 fl (80.0-96.0); PLATELET COUNT, AUTOMATED 238 10^3/uL (150-450); RED BLOOD COUNT 4.64 10^6/uL (4.00-5.40); WHITE BLOOD COUNT 8.5 10^3/uL (4.0-10.0)
[2023-01-20 12:49] LABS: BLOOD UREA NITROGEN 10 MG/DL (9-23); CALCIUM LEVEL 9.1 MG/DL (8.5-10.1); CARBON DIOXIDE LEVEL 29 MMOL/L (20-31); CHLORIDE LEVEL 106 MMOL/L (98-107); CREATININE FOR GFR 0.66 MG/DL (0.55-1.30); GLOMERULAR FILTRATION RATE > 60.0 (>58); GLUCOSE, FASTING 80 MG/DL (60-100); POTASSIUM SERUM 3.9 MMOL/L (3.5-5.1); SODIUM LEVEL 141 MMOL/L (136-145)
== END ==
LOC: M EKG 11:24
PROVIDERS: ATTEND Specialist
DX: Z01.818 Encounter for other preprocedural examination (principal); R31.0 Gross hematuria

== ENCOUNTER 2023-01-27 15:12 | Day surgery (SDC) | payer OTHER ==
[~2023-01-27] VITALS: Ht 162.6 cm; Wt 90.7 kg
[~2023-01-27 15:12] MED LIST changes: +ceFAZolin SOD 2 GM in IV 1 EA IV ONE
[2023-01-27] MEDS ORDERED: ACETAMINOPHEN 1000MG 100ML IV BAG As Ordered ONE (16:04)
[2023-01-27] MEDS ORDERED: ONDANSETRON 4MG 2ML VIAL As Ordered ONE ×2 (16:04→18:02)
[2023-01-27] MEDS ORDERED: LIDOCAINE 2% 100MG/5ML SDV (FOR ANES.) As Ordered ONE (16:04)
[2023-01-27] MEDS ORDERED: propofoL 200 MG/20 ML VIAL As Ordered ONE (16:04)
[2023-01-27] MEDS ORDERED: fentaNYL 100 MCG/2 ML INJECTION As Ordered ONE ×2 (16:05→17:26)
[2023-01-27] MEDS ORDERED: MIDAZOLAM INJ 2MG/2ML VIAL As Ordered ONE (16:05)
[2023-01-27] MEDS ORDERED: LIDOCAINE 1% MDV 50ML VIAL As Ordered ONE (16:34)
[2023-01-27] MEDS ORDERED: LIDOCAINE 2% 5ML JELLY UROJET As Ordered ONE (16:34)
[2023-01-27] MEDS ORDERED: METOCLOPRAMIDE INJ 10MG/2ML VIAL As Ordered ONE (16:55)
[2023-01-27] MEDS ORDERED: LR 1,000 ML IV SCH (18:05)
[2023-01-27] MEDS ORDERED: HYDROMORPHONE HCL 0.5 MG/ 0.5 ML SYRINGE IV PRN (18:05)
[2023-01-27] MEDS ORDERED: ONDANSETRON 4MG 2ML VIAL IV PRN (18:05)
[2023-01-27] MEDS ORDERED: fentaNYL 100 MCG/2 ML INJECTION IV PRN (18:05)
[2023-01-27] MEDS ORDERED: oxyCODONE 5MG TAB PO PRN (18:05)
[2023-01-27 18:24] VITALS: BP 121/62; TEMP 97.4; O2SAT 98
== END 2023-01-27 18:33 | disposition home or self-care (01) ==
LOC: M SDC 15:12
PROVIDERS: ATTEND Specialist
DX: N30.30 Trigonitis without hematuria (principal); E78.5 Hyperlipidemia, unspecified; K76.0 Fatty (change of) liver, not elsewhere classified; F41.9 Anxiety disorder, unspecified; F32.A Depression, unspecified; Z79.899 Other long term (current) drug therapy; Z87.891 Personal history of nicotine dependence; Z88.7 Allergy status to serum and vaccine; Z88.8 Allergy status to other drugs, medicaments and biological substances; G43.909 Migraine, unspecified, not intractable, without status migrainosus; Z86.73 Personal history of transient ischemic attack (TIA), and cerebral infarction without residual deficits
CPT/HCPCS: 52224; 88305; J0131; J0690; J2250; J2405; J2765; J3010

== ENCOUNTER 2023-03-18 12:39 | Emergency (ER) | payer OTHER ==
[~2023-03-18] VITALS: Ht 162.6 cm; Wt 92.4 kg
[~2023-03-18 12:39] MED LIST changes: -CEFD300C41; +CEFD300C42; -ceFAZolin SOD 2 GM in IV 1 EA IV ONE
[2023-03-18] MEDS ORDERED: METF500T13 (13:00)
[2023-03-18 13:52] LABS: BASO % 0.3 % (0.0-1.0); EOS # 0.1 10^3/uL (0.0-0.5); EOS % 0.8 % (0.0-3.0); HEMATOCRIT 41.2 % (36.0-47.0); LYMPH # 2.3 10^3/uL (1.5-5.0); MEAN CORPUSCULAR VOLUME 91.4 fl (80.0-96.0); MONO # 0.4 10^3/uL (0.0-0.8); MONO % 6.3 % (2.0-8.0); NEUTROPHILS # 3.7 10^3/uL (1.5-8.5); NEUTROPHILS % 57.3 % (36.0-66.0); PLATELET COUNT, AUTOMATED 223 10^3/uL (150-450); RED BLOOD COUNT 4.51 10^6/uL (4.00-5.40); WHITE BLOOD COUNT 6.5 10^3/uL (4.0-10.0)
[2023-03-18] MEDS ORDERED: ONDANSETRON 4MG 2ML VIAL IV ONE (13:55)
[2023-03-18] MEDS ORDERED: MORPHINE 2 MG/ML 1ML VIAL IV PRN (13:55)
[2023-03-18] MEDS ORDERED: ISOVUE-370 76% 100ML VIAL As Ordered ONE (13:56)
[2023-03-18 14:04] LABS: CK-MB VALUE MASS < 1.0 NG/ML (<3.6)
[2023-03-18 14:06] LABS: CPK CREATINE PHOSPHOKINASE 55 U/L (34-145); MB/CK RELATIVE INDEX 1.81 (< OR =4)
[2023-03-18 14:10] LABS: LIPASE 41 U/L (12-53)
[2023-03-18 14:12] LABS: ALBUMIN 3.7 G/DL (3.2-5.2); ALKALINE PHOSPHATASE 69 U/L (46-116); ALT/SGPT 73 U/L (7.0-40); AST/SGOT 48 U/L (<34); BILIRUBIN,DIRECT 0.2 MG/DL (<0.4); BILIRUBIN,TOTAL 0.7 MG/DL (0.3-1.2); BLOOD UREA NITROGEN 12 MG/DL (9-23); CARBON DIOXIDE LEVEL 26 MMOL/L (20-31); CHLORIDE LEVEL 108 MMOL/L (98-107); CREATININE FOR GFR 0.61 MG/DL (0.55-1.30); GLOMERULAR FILTRATION RATE > 60.0 (>58); GLUCOSE, FASTING 82 MG/DL (60-100); SODIUM LEVEL 142 MMOL/L (136-145); TOTAL PROTEIN 6.8 G/DL (5.7-8.2)
[2023-03-18 15:08] LABS: CK-MB VALUE MASS < 1.0 NG/ML (<3.6)
[2023-03-18 15:09] LABS: CPK CREATINE PHOSPHOKINASE 49 U/L (34-145); MB/CK RELATIVE INDEX 2.04 (< OR =4)
[2023-03-18 15:50] VITALS: BP 110/78; TEMP 97.5; O2SAT 96
== END 2023-03-18 16:01 | disposition home or self-care (01) ==
LOC: M ED 12:39 → EDBD 12:39 → M ED 16:01
DX: R07.9 Chest pain, unspecified (principal); N63.20 Unspecified lump in the left breast, unspecified quadrant; I10 Essential (primary) hypertension; E78.5 Hyperlipidemia, unspecified; F32.A Depression, unspecified; Z87.891 Personal history of nicotine dependence; Z86.73 Personal history of transient ischemic attack (TIA), and cerebral infarction without residual deficits; Z88.8 Allergy status to other drugs, medicaments and biological substances; Z88.7 Allergy status to serum and vaccine; Z79.4 Long term (current) use of insulin; Z79.899 Other long term (current) drug therapy
CPT/HCPCS: 71045; 71275; 80047; 80048; 80076; 82550; 82553; 83690; 85025; 87486; 87581; 87633; 87798; 93005; 93041; 94760; 96374; 96375; 99285; J2405; Q9967

== ENCOUNTER → 2023-04-08 | Outpatient (CLI) | payer OTHER ==
[~2023-04-08] MED LIST changes: +METF500T13
== END ==
LOC: M WHC 09:17
PROVIDERS: ATTEND Specialist
DX: Z12.31 Encounter for screening mammogram for malignant neoplasm of breast (principal); N64.89 Other specified disorders of breast

== ENCOUNTER → 2023-05-17 | Outpatient (CLI) | payer OTHER ==
[~2023-05-17] MED LIST changes: +CEFD1CAP9; -CEFD300C42
[2023-05-17 10:27] LABS: HEMATOCRIT 42.1 % (36.0-47.0); HEMOGLOBIN 14.2 g/dl (12.0-15.5); MEAN CORPUSCULAR HEMOGLOBIN 30.9 pg (27.0-33.0); MEAN CORPUSCULAR HGB CONC 33.7 g/dl (32.0-36.5); MEAN CORPUSCULAR VOLUME 91.5 fl (80.0-96.0); PLATELET COUNT, AUTOMATED 205 10^3/uL (150-450); WHITE BLOOD COUNT 6.3 10^3/uL (4.0-10.0)
[2023-05-17 10:54] LABS: ALBUMIN 3.7 G/DL (3.2-5.2); ALKALINE PHOSPHATASE 66 U/L (46-116); ALT/SGPT 127 U/L (7.0-40); AST/SGOT 74 U/L (<34); BILIRUBIN,DIRECT 0.2 MG/DL (<0.4); BILIRUBIN,TOTAL 0.6 MG/DL (0.3-1.2); BLOOD UREA NITROGEN 12 MG/DL (9-23); CALCIUM LEVEL 9.2 MG/DL (8.5-10.1); CARBON DIOXIDE LEVEL 29 MMOL/L (20-31); CHLORIDE LEVEL 105 MMOL/L (98-107); CREATININE FOR GFR 0.65 MG/DL (0.55-1.30); GLOMERULAR FILTRATION RATE > 60.0 (>58); GLUCOSE, FASTING 115 MG/DL (60-100); POTASSIUM SERUM 4.3 MMOL/L (3.5-5.1); SODIUM LEVEL 140 MMOL/L (136-145)
[2023-05-17 10:57] LABS: TOTAL 25(OH) VITAMIN D 62.6 NG/ML (20.0-100.0)
== END ==
LOC: M LAB 09:45
PROVIDERS: ATTEND Physician Assistant
DX: K75.81 Nonalcoholic steatohepatitis (NASH) (principal); R73.01 Impaired fasting glucose; E66.9 Obesity, unspecified; E55.9 Vitamin D deficiency, unspecified

== ENCOUNTER 2023-05-19 10:44 | Emergency (ER) | payer OTHER ==
[~2023-05-19] VITALS: Ht 162.6 cm; Wt 94.3 kg
[2023-05-19] MEDS ORDERED: NS 1,000 ML IV ONE (14:15)
[2023-05-19] MEDS ORDERED: ONDANSETRON 4MG 2ML VIAL IV ONE (14:15)
[2023-05-19] MEDS ORDERED: KETOROLAC 30 MG/ML 1ML VIAL IV ONE (14:15)
[2023-05-19 14:22] LABS: BASO % 0.4 % (0.0-1.0); EOS # 0.1 10^3/uL (0.0-0.5); EOS % 1.2 % (0.0-3.0); HEMATOCRIT 44.4 % (36.0-47.0); HEMOGLOBIN 14.8 g/dl (12.0-15.5); LYMPH # 2.8 10^3/uL (1.5-5.0); LYMPH % 37.8 % (24.0-44.0); MEAN CORPUSCULAR HEMOGLOBIN 30.6 pg (27.0-33.0); MEAN CORPUSCULAR HGB CONC 33.3 g/dl (32.0-36.5); MEAN CORPUSCULAR VOLUME 91.9 fl (80.0-96.0); MONO # 0.5 10^3/uL (0.0-0.8); MONO % 6.4 % (2.0-8.0); NEUTROPHILS # 3.9 10^3/uL (1.5-8.5); NEUTROPHILS % 53.7 % (36.0-66.0); PLATELET COUNT, AUTOMATED 226 10^3/uL (150-450); RED BLOOD COUNT 4.83 10^6/uL (4.00-5.40); WHITE BLOOD COUNT 7.3 10^3/uL (4.0-10.0)
[2023-05-19 14:44] LABS: LIPASE 39 U/L (12-53)
[2023-05-19 14:50] LABS: ALBUMIN 4.1 G/DL (3.2-5.2); ALKALINE PHOSPHATASE 69 U/L (46-116); ALT/SGPT 132 U/L (7.0-40); AST/SGOT 85 U/L (<34); BILIRUBIN,DIRECT 0.1 MG/DL (<0.4); BILIRUBIN,TOTAL 0.5 MG/DL (0.3-1.2); BLOOD UREA NITROGEN 11 MG/DL (9-23); CALCIUM LEVEL 9.7 MG/DL (8.5-10.1); CARBON DIOXIDE LEVEL 26 MMOL/L (20-31); CHLORIDE LEVEL 107 MMOL/L (98-107); CREATININE FOR GFR 0.63 MG/DL (0.55-1.30); GLOMERULAR FILTRATION RATE > 60.0 (>58); GLUCOSE, FASTING 88 MG/DL (60-100); POTASSIUM SERUM 4.2 MMOL/L (3.5-5.1); SODIUM LEVEL 142 MMOL/L (136-145); TOTAL PROTEIN 7.5 G/DL (5.7-8.2)
[2023-05-19] MEDS ORDERED: ISOVUE-370 76% 100ML VIAL As Ordered ONE (15:05)
[2023-05-19] MEDS ORDERED: ONDA4TAB6 PO (15:59)
[2023-05-19 16:24] VITALS: BP 120/78; TEMP 98.4; O2SAT 100
== END 2023-05-19 16:30 | disposition home or self-care (01) ==
LOC: M ED 10:44
DX: K52.9 Noninfective gastroenteritis and colitis, unspecified (principal); R16.1 Splenomegaly, not elsewhere classified; Z87.442 Personal history of urinary calculi; N20.0 Calculus of kidney; E78.5 Hyperlipidemia, unspecified; F32.A Depression, unspecified; F41.9 Anxiety disorder, unspecified
CPT/HCPCS: 74177; 80048; 80076; 81001; 83690; 85025; 96361; 96374; 96375; 99284; J1885; J2405; Q9967

== ENCOUNTER → 2023-06-03 | Outpatient (CLI) | payer OTHER ==
[2023-06-03 09:58] LABS: ALKALINE PHOSPHATASE 64 U/L (46-116); ALT/SGPT 88 U/L (7.0-40); AST/SGOT 43 U/L (<34); BILIRUBIN,TOTAL 0.8 MG/DL (0.3-1.2); BLOOD UREA NITROGEN 12 MG/DL (9-23); CALCIUM LEVEL 9.6 MG/DL (8.5-10.1); CARBON DIOXIDE LEVEL 28 MMOL/L (20-31); CHLORIDE LEVEL 105 MMOL/L (98-107); CHOLESTEROL LEVEL 222 MG/DL (<200); CHOLESTEROL RISK RATIO 5.57 (<5); CREATININE FOR GFR 0.74 MG/DL (0.55-1.30); GLOMERULAR FILTRATION RATE > 60.0 (>58); GLUCOSE, FASTING 113 MG/DL (60-100); HDL CHOLESTEROL 39.8 MG/DL (>40); LDL CHOLESTEROL 139.8 MG/DL (<100); NON-HDL-C 182.2 MG/DL; POTASSIUM SERUM 4.1 MMOL/L (3.5-5.1); SODIUM LEVEL 138 MMOL/L (136-145); TOTAL PROTEIN 7.1 G/DL (5.7-8.2); TRIGLYCERIDES LEVEL 212 MG/DL (<150)
[2023-06-03 10:00] LABS: THYROID STIMULATING HORMONE 1.595 uIU/ML (0.55-4.78)
== END ==
LOC: M LAB 07:59
PROVIDERS: ATTEND Nurse Practitioner Family
DX: K75.81 Nonalcoholic steatohepatitis (NASH) (principal); E78.5 Hyperlipidemia, unspecified

== ENCOUNTER → 2023-06-19 | Outpatient (REF) | payer OTHER ==
[2023-06-19 17:56] LABS: CHOLESTEROL RISK RATIO 4.4 (<5); HDL CHOLESTEROL 42.2 MG/DL (>40); LDL CHOLESTEROL 115.6 MG/DL (<100); NON-HDL-C 143.8 MG/DL
== END ==
LOC: M LAB REF 16:17
PROVIDERS: ATTEND Nurse Practitioner Family
DX: E78.5 Hyperlipidemia, unspecified (principal)

== ENCOUNTER → 2023-07-05 | Outpatient (CLI) | payer OTHER ==
[2023-07-05 09:18] LABS: ALBUMIN 3.8 G/DL (3.2-5.2); ALKALINE PHOSPHATASE 65 U/L (46-116); ALT/SGPT 66 U/L (7.0-40); AST/SGOT 34 U/L (<34); BILIRUBIN,DIRECT 0.2 MG/DL (<0.4); BILIRUBIN,TOTAL 0.7 MG/DL (0.3-1.2); IRON (FE) 71 UG/DL (50-170); PERCENT SATURATION 21.9 % (13.2-45.0); TOTAL IRON BINDING CAPACITY 324 UG/DL (250-425)
[2023-07-05 09:59] LABS: HEPATITIS B CORE ANTIBODY IGM NEGATIVE (NEGATIVE); HEPATITIS C VIRUS ABY INDEX < 0.02 INDEX (<0.8)
== END ==
LOC: M LAB 08:17
PROVIDERS: ATTEND Nurse Practitioner Family
DX: R74.01 Elevation of levels of liver transaminase levels (principal)

== ENCOUNTER → 2023-07-07 | Outpatient (REF) | payer OTHER ==
[2023-07-07 18:05] LABS: APPEARANCE, URINE HAZY (CLEAR); BACTERIA, URINE AUTO NEGATIVE (NEGATIVE); BILIRUBIN, URINE AUTO NEGATIVE (NEGATIVE); BLOOD, URINE BLOOD 2+ (NEGATIVE); COLOR, URINE YELLOW (YELLOW); GLUCOSE, URINE (UA) AUTO NEGATIVE (NEGATIVE); KETONE, URINE AUTO NEGATIVE (NEGATIVE); LEUKOCYTE ESTERASE, URINE AUTO TRACE (NEGATIVE); MUCUS, URINE SMALL (NEGATIVE); NITRITE, URINE AUTO NEGATIVE (NEGATIVE); PROTEIN, URINE AUTO NEGATIVE (NEGATIVE); RBC, URINE AUTO 59 /HPF (0-3); SPECIFIC GRAVITY URINE AUTO 1.015 (1.002-1.035); SQUAMOUS EPITHELIAL CELL UR AU 4 /HPF (0-6); UROBILINOGEN, URINE AUTO 0.2 mg/dL (0.0-2.0); WBC, URINE AUTO 9 /HPF (0-3)
== END ==
LOC: M SMT 16:51
PROVIDERS: ATTEND Specialist
DX: R10.2 Pelvic and perineal pain (principal)

== ENCOUNTER → 2023-07-09 | Outpatient (CLI) | payer OTHER | LOC: M RAD 06:27 | PROVIDERS: ATTEND Internal Medicine Gastroenterology | DX: R74.01 Elevation of levels of liver transaminase levels (principal) ==

== ENCOUNTER → 2023-07-14 | Outpatient (CLI) | payer OTHER ==
[~2023-07-14] MED LIST changes: +ISOVUE-370 76% 100ML VIAL ONE
== END ==
LOC: M PLAIMG 08:12
PROVIDERS: ATTEND Specialist
DX: R31.9 Hematuria, unspecified (principal)
CPT/HCPCS: 74178; Q9967

== ENCOUNTER 2023-07-25 07:51 | Emergency (ER) | payer OTHER ==
[~2023-07-25] VITALS: Ht 162.6 cm; Wt 93.2 kg
[~2023-07-25 07:51] MED LIST changes: -ISOVUE-370 76% 100ML VIAL ONE
[2023-07-25 07:52] VITALS: BP 131/79; TEMP 97.9; O2SAT 100
[2023-07-25 09:12] LABS: BASO % 0.3 % (0.0-1.0); EOS # 0.1 10^3/uL (0.0-0.5); EOS % 0.8 % (0.0-3.0); HEMATOCRIT 41.7 % (36.0-47.0); HEMOGLOBIN 14.2 g/dl (12.0-15.5); LYMPH # 2.3 10^3/uL (1.5-5.0); LYMPH % 31.6 % (24.0-44.0); MEAN CORPUSCULAR HEMOGLOBIN 31.1 pg (27.0-33.0); MEAN CORPUSCULAR HGB CONC 34.1 g/dl (32.0-36.5); MEAN CORPUSCULAR VOLUME 91.4 fl (80.0-96.0); MONO # 0.4 10^3/uL (0.0-0.8); MONO % 5.9 % (2.0-8.0); NEUTROPHILS # 4.5 10^3/uL (1.5-8.5); NEUTROPHILS % 60.7 % (36.0-66.0); PLATELET COUNT, AUTOMATED 236 10^3/uL (150-450); RED BLOOD COUNT 4.56 10^6/uL (4.00-5.40); WHITE BLOOD COUNT 7.3 10^3/uL (4.0-10.0)
[2023-07-25 09:13] LABS: INR 1.08; PROTHROMBIN TIME 13.7 SECONDS (12.5-14.5)
[2023-07-25 09:14] LABS: PARTIAL THROMBOPLASTIN TIME 32.2 SECONDS (24.8-34.2)
[2023-07-25 09:24] LABS: LIPASE 43 U/L (12-53)
[2023-07-25 09:26] LABS: ALBUMIN 3.9 G/DL (3.2-5.2); ALKALINE PHOSPHATASE 65 U/L (46-116); ALT/SGPT 51 U/L (7.0-40); AMYLASE 72 U/L (30-118); AST/SGOT 22 U/L (<34); BILIRUBIN,DIRECT 0.2 MG/DL (<0.4); BILIRUBIN,TOTAL 0.6 MG/DL (0.3-1.2); BLOOD UREA NITROGEN 13 MG/DL (9-23); CALCIUM LEVEL 9.2 MG/DL (8.5-10.1); CARBON DIOXIDE LEVEL 29 MMOL/L (20-31); CHLORIDE LEVEL 109 MMOL/L (98-107); CREATININE FOR GFR 0.83 MG/DL (0.55-1.30); GLOMERULAR FILTRATION RATE > 60.0 (>58); GLUCOSE, FASTING 98 MG/DL (60-100); POTASSIUM SERUM 4.1 MMOL/L (3.5-5.1); SODIUM LEVEL 143 MMOL/L (136-145)
[2023-07-25 09:41] LABS: HCG, SERUM QUALITATIVE NEGATIVE (NEGATIVE)
[2023-07-25] MEDS ORDERED: ISOVUE-370 76% 100ML VIAL As Ordered ONE (11:29)
[2023-07-25] MEDS: KETOROLAC 30 MG/ML 1ML VIAL IV ONE (11:50)
[2023-07-25] MEDS: ONDANSETRON 4MG 2ML VIAL IV ONE (11:50)
== END 2023-07-25 13:04 | disposition home or self-care (01) ==
LOC: M ED 07:51
DX: K59.00 Constipation, unspecified (principal); Z87.442 Personal history of urinary calculi; Z88.7 Allergy status to serum and vaccine; Z88.8 Allergy status to other drugs, medicaments and biological substances; Z79.82 Long term (current) use of aspirin; Z79.899 Other long term (current) drug therapy
CPT/HCPCS: 74177; 80048; 80076; 81001; 82150; 83605; 83690; 84703; 85025; 85610; 85730; 96374; 99283; J1885; J2405; Q9967

== ENCOUNTER → 2023-08-07 | Outpatient (CLI) | payer OTHER ==
[~2023-08-07] MED LIST changes: +ACET-897 PO; +BACI1TAB20 PO; +BUPR150T12 PO; +THERTAB52 PO; +[UNRECOGNIZED DRUG - OTHER] PO
== END ==
LOC: M WHC 13:43
PROVIDERS: ATTEND Physician Assistant
DX: E04.1 Nontoxic single thyroid nodule (principal)

== ENCOUNTER → 2023-08-08 | Outpatient (REF) | payer OTHER ==
[2023-08-08 09:32] LABS: AMORPHOUS SEDIMENT SMALL (NEGATIVE); APPEARANCE, URINE HAZY (CLEAR); BACTERIA, URINE AUTO NEGATIVE (NEGATIVE); BILIRUBIN, URINE AUTO NEGATIVE (NEGATIVE); BLOOD, URINE BLOOD NEGATIVE (NEGATIVE); COLOR, URINE YELLOW (YELLOW); GLUCOSE, URINE (UA) AUTO NEGATIVE (NEGATIVE); KETONE, URINE AUTO NEGATIVE (NEGATIVE); LEUKOCYTE ESTERASE, URINE AUTO NEGATIVE (NEGATIVE); MUCUS, URINE SMALL (NEGATIVE); NITRITE, URINE AUTO NEGATIVE (NEGATIVE); PROTEIN, URINE AUTO NEGATIVE (NEGATIVE); RBC, URINE AUTO 2 /HPF (0-3); SPECIFIC GRAVITY URINE AUTO 1.019 (1.002-1.035); SQUAMOUS EPITHELIAL CELL UR AU 9 /HPF (0-6); UROBILINOGEN, URINE AUTO 0.2 mg/dL (0.0-2.0); WBC, URINE AUTO 7 /HPF (0-3)
== END ==
LOC: M SMT 09:09
PROVIDERS: ATTEND Specialist
DX: Z01.818 Encounter for other preprocedural examination (principal)

== ENCOUNTER → 2023-08-09 | Outpatient (CLI) | payer OTHER ==
[2023-08-09 10:30] LABS: HEMOGLOBIN 14.1 g/dl (12.0-15.5); MEAN CORPUSCULAR HEMOGLOBIN 30.9 pg (27.0-33.0); MEAN CORPUSCULAR HGB CONC 34.4 g/dl (32.0-36.5); MEAN CORPUSCULAR VOLUME 89.7 fl (80.0-96.0); PLATELET COUNT, AUTOMATED 206 10^3/uL (150-450); RED BLOOD COUNT 4.57 10^6/uL (4.00-5.40); WHITE BLOOD COUNT 5.9 10^3/uL (4.0-10.0)
[2023-08-09 10:53] LABS: BLOOD UREA NITROGEN 12 MG/DL (9-23); CARBON DIOXIDE LEVEL 30 MMOL/L (20-31); CHLORIDE LEVEL 106 MMOL/L (98-107); CREATININE FOR GFR 0.76 MG/DL (0.55-1.30); GLOMERULAR FILTRATION RATE > 60.0 (>58); GLUCOSE, FASTING 100 MG/DL (60-100); SODIUM LEVEL 140 MMOL/L (136-145)
== END ==
LOC: M EKG 09:09
PROVIDERS: ATTEND Specialist
DX: Z01.818 Encounter for other preprocedural examination (principal)

== ENCOUNTER 2023-08-14 06:04 | Day surgery (SDC) | payer OTHER ==
[~2023-08-14] VITALS: Ht 162.6 cm; Wt 92.4 kg
[~2023-08-14 06:04] MED LIST changes: -LIDO15SO PO; +LIDO15SO8 PO; +ceFAZolin SOD 2 GM in IV 1 EA IV ONE
[2023-08-14] MEDS ORDERED: LR 1,000 ML IV SCH (06:30)
[2023-08-14] MEDS ORDERED: LIDOCAINE 2% 100MG/5ML SDV (FOR ANES.) As Ordered ONE (06:51)
[2023-08-14] MEDS ORDERED: ONDANSETRON 4MG 2ML VIAL As Ordered ONE (06:51)
[2023-08-14] MEDS ORDERED: MIDAZOLAM INJ 2MG/2ML VIAL As Ordered ONE (06:51)
[2023-08-14] MEDS ORDERED: KETOROLAC 60MG 2ML VIAL As Ordered ONE (06:51)
[2023-08-14] MEDS ORDERED: fentaNYL 100 MCG/2 ML INJECTION As Ordered ONE (06:51)
[2023-08-14] MEDS ORDERED: propofoL 200 MG/20 ML VIAL As Ordered ONE (06:51)
[2023-08-14] MEDS ORDERED: ACETAMINOPHEN 1000MG 100ML IV BAG As Ordered ONE (07:39)
[2023-08-14] MEDS ORDERED: OXYC1TAB23 PO (07:56)
[2023-08-14] MEDS ORDERED: FLOM0.4C39 PO (07:56)
[2023-08-14] MEDS ORDERED: MORPHINE 2 MG/ML 1ML VIAL IV PRN (08:35)
[2023-08-14] MEDS ORDERED: fentaNYL 100 MCG/2 ML INJECTION IV PRN (08:35)
[2023-08-14] MEDS ORDERED: ONDANSETRON 4MG 2ML VIAL IV PRN (08:35)
[2023-08-14 08:36] VITALS: BP 128/74; TEMP 98; O2SAT 94
[2023-08-14] MEDS: oxyCODONE 5MG TAB PO PRN (08:49)
[2023-08-14] MEDS ORDERED: PERCOCET 5MG/325MG TAB PO PRN (10:35)
== END 2023-08-14 09:31 | disposition home or self-care (01) ==
LOC: M SDC 06:04
PROVIDERS: ATTEND Urology
DX: N20.0 Calculus of kidney (principal); Z79.899 Other long term (current) drug therapy; E04.1 Nontoxic single thyroid nodule; K76.0 Fatty (change of) liver, not elsewhere classified; F41.9 Anxiety disorder, unspecified; F32.A Depression, unspecified; N63.20 Unspecified lump in the left breast, unspecified quadrant; Z88.7 Allergy status to serum and vaccine; Z88.8 Allergy status to other drugs, medicaments and biological substances; Z87.891 Personal history of nicotine dependence; G43.909 Migraine, unspecified, not intractable, without status migrainosus; G40.909 Epilepsy, unspecified, not intractable, without status epilepticus; Z86.73 Personal history of transient ischemic attack (TIA), and cerebral infarction without residual deficits; G47.33 Obstructive sleep apnea (adult) (pediatric)
CPT/HCPCS: 50590; 74018; J0131; J2250; J2405; J3010

== ENCOUNTER → 2023-10-03 | Outpatient (CLI) | payer OTHER ==
[~2023-10-03] MED LIST changes: +FLOM0.4C39 PO; -ceFAZolin SOD 2 GM in IV 1 EA IV ONE
== END ==
LOC: M RAD 08:42
PROVIDERS: ATTEND Specialist
DX: N20.0 Calculus of kidney (principal)

== ENCOUNTER 2023-10-20 10:44 | Day surgery (SDC) | payer OTHER ==
[~2023-10-20] VITALS: Ht 162.6 cm; Wt 93.1 kg
[2023-10-20] MEDS: NS 1,000 ML IV ONE (11:30)
[2023-10-20] MEDS ORDERED: propofoL 200 MG/20 ML VIAL As Ordered ONE (11:45)
[2023-10-20 12:40] VITALS: TEMP 97.3
[2023-10-20 13:06] VITALS: BP 137/90; O2SAT 100
== END 2023-10-20 13:08 | disposition home or self-care (01) ==
LOC: M OPP 10:44
PROVIDERS: ATTEND Internal Medicine Gastroenterology
DX: R10.12 Left upper quadrant pain (principal); R10.32 Left lower quadrant pain; D12.0 Benign neoplasm of cecum; D12.4 Benign neoplasm of descending colon; D12.5 Benign neoplasm of sigmoid colon; K64.8 Other hemorrhoids; K76.0 Fatty (change of) liver, not elsewhere classified; G47.30 Sleep apnea, unspecified; Z86.73 Personal history of transient ischemic attack (TIA), and cerebral infarction without residual deficits; Z79.899 Other long term (current) drug therapy; Z90.710 Acquired absence of both cervix and uterus; Z88.8 Allergy status to other drugs, medicaments and biological substances; Z88.7 Allergy status to serum and vaccine; Z87.891 Personal history of nicotine dependence

== ENCOUNTER → 2023-11-24 | Outpatient (CLI) | payer OTHER ==
[~2023-11-24] MED LIST changes: +ONDA-282 PO; -ONDA4TAB6 PO
== END ==
LOC: M WHC 14:24
PROVIDERS: ATTEND Specialist
DX: N63.0 Unspecified lump in unspecified breast (principal)

== ENCOUNTER → 2024-03-20 | Outpatient (REF) | payer OTHER | LOC: M LAB REF 12:00 | PROVIDERS: ATTEND Physician Assistant Medical | DX: R19.7 Diarrhea, unspecified (principal) ==

== ENCOUNTER → 2024-03-22 | Outpatient (REF) | payer OTHER ==
[2024-03-22 19:17] LABS: ALBUMIN 3.7 G/DL (3.2-5.2); ALKALINE PHOSPHATASE 71 U/L (46-116); ALT/SGPT 54 U/L (7.0-40); AST/SGOT 27 U/L (<34); BILIRUBIN,TOTAL 0.5 MG/DL (0.3-1.2); BLOOD UREA NITROGEN 10 MG/DL (9-23); CALCIUM LEVEL 9.7 MG/DL (8.5-10.1); CARBON DIOXIDE LEVEL 28 MMOL/L (20-31); CHLORIDE LEVEL 106 MMOL/L (98-107); CHOLESTEROL LEVEL 195 MG/DL (<200); CHOLESTEROL RISK RATIO 5.09 (<5); CREATININE FOR GFR 0.76 MG/DL (0.55-1.30); GLOMERULAR FILTRATION RATE > 60.0 (>58); GLUCOSE, FASTING 118 MG/DL (60-100); HDL CHOLESTEROL 38.3 MG/DL (>40); LDL CHOLESTEROL 106.9 MG/DL (<100); NON-HDL-C 156.7 MG/DL; POTASSIUM SERUM 4.3 MMOL/L (3.5-5.1); SODIUM LEVEL 140 MMOL/L (136-145); TOTAL PROTEIN 7.1 G/DL (5.7-8.2); TRIGLYCERIDES LEVEL 249 MG/DL (<150)
== END ==
LOC: M LAB REF 16:24
PROVIDERS: ATTEND Physician Assistant
DX: R73.01 Impaired fasting glucose (principal); E66.9 Obesity, unspecified; Z68.35 Body mass index [BMI] 35.0-35.9, adult; K75.81 Nonalcoholic steatohepatitis (NASH)

== ENCOUNTER → 2024-05-17 | Outpatient (CLI) | payer OTHER | LOC: M WHC 13:47 | PROVIDERS: ATTEND Physician Assistant | DX: R92.8 Other abnormal and inconclusive findings on diagnostic imaging of breast (principal); N64.4 Mastodynia; N63.21 Unspecified lump in the left breast, upper outer quadrant ==

== ENCOUNTER 2024-07-16 05:03 | Emergency (ER) | payer OTHER ==
[~2024-07-16] VITALS: Ht 162.6 cm; Wt 90.9 kg
[2024-07-16] MEDS: KETOROLAC 30 MG/ML 1ML VIAL IV ONE (07:52)
[2024-07-16] MEDS: ACETAMINOPHEN *IV* 1,000 MG in IV 1 EA IV ONE (07:54)
[2024-07-16] MEDS: METHOCARBAMOL 1,000 MG/10 ML VIAL IV ONE (08:51)
[2024-07-16] MEDS ORDERED: METH-1164 PO (09:29)
[2024-07-16] MEDS ORDERED: NAPR-837 PO (09:29)
[2024-07-16 09:37] VITALS: BP 118/86; TEMP 97.8; O2SAT 99
== END 2024-07-16 09:41 | disposition home or self-care (01) ==
LOC: M ED 05:03
DX: M54.31 Sciatica, right side (principal); Z88.7 Allergy status to serum and vaccine; Z88.8 Allergy status to other drugs, medicaments and biological substances; Z79.83 Long term (current) use of bisphosphonates; Z79.1 Long term (current) use of non-steroidal anti-inflammatories (NSAID); Z79.899 Other long term (current) drug therapy
CPT/HCPCS: 96365; 96375; 99284; J0131; J1885; J2800

== ENCOUNTER → 2024-07-20 | Outpatient (CLI) | payer OTHER ==
[~2024-07-20] MED LIST changes: +METH-1164 PO; +NAPR-837 PO
[2024-07-20 14:38] LABS: ALBUMIN 3.9 G/DL (3.2-5.2); BILIRUBIN,DIRECT 0.1 MG/DL (<0.4); BILIRUBIN,TOTAL 0.4 MG/DL (0.3-1.2); TOTAL PROTEIN 7.1 G/DL (5.7-8.2)
== END ==
LOC: M LAB 12:46
PROVIDERS: ATTEND Physician Assistant
DX: K75.81 Nonalcoholic steatohepatitis (NASH) (principal); M41.9 Scoliosis, unspecified; M47.817 Spondylosis without myelopathy or radiculopathy, lumbosacral region; N20.0 Calculus of kidney; M54.41 Lumbago with sciatica, right side

== ENCOUNTER → 2024-08-17 | Outpatient (REF) | payer OTHER, MEDICAID ==
[2024-08-17 17:28] LABS: ALBUMIN 3.9 G/DL (3.2-5.2); ALKALINE PHOSPHATASE 54 U/L (35-104); ALT/SGPT 27 U/L (7.0-40); AST/SGOT 13 U/L (<34); BILIRUBIN,TOTAL 0.4 MG/DL (0.3-1.2); BLOOD UREA NITROGEN 18 MG/DL (9-23); CALCIUM LEVEL 9.3 MG/DL (8.5-10.1); CARBON DIOXIDE LEVEL 28 MMOL/L (20-31); CHLORIDE LEVEL 107 MMOL/L (98-107); CHOLESTEROL LEVEL 199 MG/DL (<200); CHOLESTEROL RISK RATIO 4.64 (<5); CREATININE FOR GFR 0.76 MG/DL (0.55-1.30); GLOMERULAR FILTRATION RATE > 60.0 (>58); GLUCOSE, FASTING 97 MG/DL (60-100); HDL CHOLESTEROL 42.8 MG/DL (>40); LDL CHOLESTEROL 120.8 MG/DL (<100); NON-HDL-C 156.2 MG/DL; POTASSIUM SERUM 4.5 MMOL/L (3.5-5.1); SODIUM LEVEL 144 MMOL/L (136-145); TRIGLYCERIDES LEVEL 177 MG/DL (<150)
[2024-08-17 17:30] LABS: HEMOGLOBIN A1c 4.8 % (4.0-6.0)
== END ==
LOC: M LAB REF 12:12
PROVIDERS: ATTEND Physician Assistant
DX: K75.81 Nonalcoholic steatohepatitis (NASH) (principal); E66.9 Obesity, unspecified; Z68.35 Body mass index [BMI] 35.0-35.9, adult; R73.01 Impaired fasting glucose

== ENCOUNTER 2024-09-02 12:00 | Outpatient (RCR) | payer MEDICAID, OTHER, SELFPAY ==
[~2024-09-02 12:00] MED LIST changes: +LIDOCAINE 1% MDV 20ML VIAL As Ordered ONE
== END 2024-09-06 ==
LOC: M PT 12:00
PROVIDERS: ATTEND Physician Assistant
DX: M54.41 Lumbago with sciatica, right side (principal)

== ENCOUNTER 2024-09-16 11:42 | Outpatient (RCR) | payer MEDICAID ==
[~2024-09-16 11:42] MED LIST changes: -FLOM0.4C39 PO; -LIDOCAINE 1% MDV 20ML VIAL As Ordered ONE; +TAMS-18 PO
== END 2024-10-06 ==
LOC: M PT 11:42
PROVIDERS: ATTEND Physician Assistant
DX: M54.41 Lumbago with sciatica, right side (principal)

== ENCOUNTER → 2024-10-04 | Outpatient (CLI) | payer OTHER | LOC: M PLAIMG 07:30 | PROVIDERS: ATTEND Physician Assistant | DX: M54.14 Radiculopathy, thoracic region (principal); G89.29 Other chronic pain ==

== ENCOUNTER → 2025-02-04 | Outpatient (CLI) | payer OTHER ==
[~2025-02-04] MED LIST changes: +ARIP1TAB4 PO; +COLA100C5 PO; +CYCL5TAB4 PO; -IBUP-1022 PO; +IBUP600T42 PO; +NAPR-885 PO; +OXYC-517 PO; +SENN18TA PO
== END ==
LOC: M RAD 12:09
PROVIDERS: ATTEND Physician Assistant
DX: M54.50 Low back pain, unspecified (principal)

== ENCOUNTER → 2025-02-18 | Outpatient (REF) | payer OTHER, MEDICAID ==
[2025-02-18 18:28] LABS: BASO # 0.0 10^3/uL (0.0-0.2); BASO % 0.4 % (0.0-1.0); EOS # 0.1 10^3/uL (0.0-0.5); EOS % 1.6 % (0.0-3.0); LYMPH # 2.3 10^3/uL (1.5-5.0); LYMPH % 40.3 % (24.0-44.0); MONO # 0.3 10^3/uL (0.0-0.8); MONO % 6.1 % (2.0-8.0); NEUTROPHILS # 2.9 10^3/uL (1.5-8.5); NEUTROPHILS % 51.2 % (36.0-66.0); PLATELET COUNT, AUTOMATED 230 10^3/uL (150-450)
[2025-02-18 18:37] LABS: ALT/SGPT 148 U/L (7.0-40); AST/SGOT 97 U/L (<34); CALCIUM LEVEL 9.4 MG/DL (8.5-10.1); CARBON DIOXIDE LEVEL 24 MMOL/L (20-31); CHLORIDE LEVEL 107 MMOL/L (98-107); CHOLESTEROL LEVEL 232 MG/DL (<200); CHOLESTEROL RISK RATIO 5.55 (<5); CREATININE FOR GFR 0.67 MG/DL (0.55-1.30); GLOMERULAR FILTRATION RATE > 90.0 (>58); LDL CHOLESTEROL 142.0 MG/DL (<100); NON-HDL-C 190.2 MG/DL; POTASSIUM SERUM 4.1 MMOL/L (3.5-5.1); SODIUM LEVEL 143 MMOL/L (136-145); TRIGLYCERIDES LEVEL 241 MG/DL (<150)
[2025-02-18 18:39] LABS: TOTAL 25(OH) VITAMIN D 27.4 NG/ML (20.0-100.0)
[2025-02-18 19:11] LABS: ESTIMATED AVERAGE GLUCOSE 103.0 MG/DL (60-110)
== END ==
LOC: M LAB REF 17:04
PROVIDERS: ATTEND Physician Assistant
DX: R73.01 Impaired fasting glucose (principal); K75.81 Nonalcoholic steatohepatitis (NASH); Z68.35 Body mass index [BMI] 35.0-35.9, adult; E66.9 Obesity, unspecified; E78.5 Hyperlipidemia, unspecified; E55.9 Vitamin D deficiency, unspecified

== ENCOUNTER 2025-03-01 09:09 | Outpatient (RCR) | payer OTHER | END 2025-03-08 | LOC: M PT 09:09 | PROVIDERS: ATTEND Nurse Practitioner Family | DX: M51.16 Intervertebral disc disorders with radiculopathy, lumbar region (principal) ==